=== PATIENT | male | born 1940 | race Hispanic/Latino ===

== ENCOUNTER 2018-06-27 05:53 | Day surgery (SDC) | payer MEDICARE, OTHER ==
[2018-06-27] MEDS ORDERED: DIPRIVAN 10 MG/ML IV ONE (06:50)
[2018-06-27] MEDS ORDERED: XYLOCAINE MPF 2% ONE (06:50)
[2018-06-27] MEDS ORDERED: SUBLIMAZE ONE (06:50)
[2018-06-27] MEDS ORDERED: ANCEF/STERILE WATER 2 GM/20 ML 2 GM/20 ML SYRINGE IV ONE (07:42)
[2018-06-27] MEDS ORDERED: LACTATED RINGERS 1,000 ML ONE (07:42)
[2018-06-27] MEDS ORDERED: ANCEF/STERILE WATER 2 GM/20 ML IV NR (08:00)
[2018-06-27] MEDS ORDERED: LACTATED RINGERS 1,000 ML IV SCH (08:00)
[2018-06-27 08:04] LABS: Partial Thromboplastin Time 24.5 Sec. (24.2-36.6)
[2018-06-27] MEDS ORDERED: NEO SYNEPHRINE/NS Syringe(OR USE) IV ONE (08:24)
[2018-06-27] MEDS ORDERED: ROBINUL ONE (08:27)
[2018-06-27] MEDS ORDERED: WATER FOR IRRIG STERILE IR ONE (08:45)
--- NOTE | 2018-06-27 08:50 | Post Operative Note ---
Date of procedure: 06/27/18 Pre-op diagnosis: + fish heme Post-op diagnosis: same Findings: ??inflam Procedure: cysto biopsies rpgs tur Anesthesia: GETA Surgeon: IVETT JENNINGS Estimated blood loss: minimal Pathology: list (bladder and bn) Specimen disposition: to lab Condition: stable Disposition: PACU
--- NOTE | 2018-06-27 08:51 | Discharge Summary ---
Short Stay Discharge Plan Activity: other (no straining ) Weight Bearing Status: Full Weight Bearing Diet: low fat, low cholesterol, low salt Special Instructions: other (inc fluids ) Durable Medical Equipment Needed Upon Discharge: other (teach maurer care ) Follow up with: ANUPAM COLLADO MD [Primary Care Provider] - 7 Days IVETT JENNINGS MD [Staff Physician] - 07/02/18
[2018-06-27] MEDS ORDERED: LASIX ONE (08:54)
[2018-06-27 11:05] VITALS: BP 137/74
--- NOTE | 2018-06-27 11:16 | Anesthesia Day of Surgery ---
Anesthesia Day of Surgery - Day of Surgery Patient Examined: Yes Patient H&P Reviewed: Yes Patient is NPO: Yes
--- NOTE | 2018-06-27 11:16 | Anesthesia Consultation ---
Anesthesia Consult and Med Hx Date of service: 06/27/18 - Airway Anesthetic Teeth Evaluation: Good ROM Head & Neck: Adequate Mental/Hyoid Distance: Adequate Mallampati Class: Class II Intubation Access Assessment: Probably Good - Pulmonary Exam CTA: Yes - Cardiac Exam Cardiac Exam: RRR - Pre-Operative Health Status ASA Pre-Surgery Classification: ASA2 Proposed Anesthetic Plan: General - Pulmonary Hx Smoking: Yes (STOPPED X 20 YRS) Hx Sleep Apnea: No (LANDON PRE SCREEN HIGH RISK) - Cardiovascular System Hx Hypertension: Yes Hx Heart Attack/AMI: No Hx Peripheral Vascular Disease: Yes (LEGS) - Central Nervous System Hx Psychiatric Problems: Yes (claustrophobia) - Gastrointestinal Hx Ulcer: Yes - Endocrine Hx Renal Disease: No Hx Liver Disease: No Hx Insulin Dependent Diabetes: No Hx Non-Insulin Dependent Diabetes: No Hx Hypothyroidism: Yes - Other Systems Hx Obesity: Yes - Additional Comments Anesthesia Medical History Comments: No hx anesthetic complications.
--- NOTE | 2018-06-27 11:28 | Operative Report ---
PREOPERATIVE DIAGNOSES: Positive cytology, irregularity, right bladder neck area. POSTOPERATIVE DIAGNOSES: Positive cytology, irregularity, right bladder neck area. PROCEDURE: Cystoscopy, retrograde biopsy, TUR biopsy, bladder neck and Tavares catheter. SURGEON: Nicola Aviles MD ANESTHESIA: General. FINDINGS: This is a gentleman with hematuria with positive FISH test. CT scan was unremarkable. He now presents for treatment. DESCRIPTION OF PROCEDURE: The patient was brought to the operating room and placed on the operating table. Following induction of anesthesia, placed in lithotomy position, prepped and draped in usual sterile fashion. Cystourethroscopy showed irregularity, right bladder neck area. Multiple bladder biopsies were done. Retrograde showed delicate collecting system and ureters. At this point, the biopsies were done, the area was cauterized. The resectoscope was inserted under direct vision and a biopsy of the bladder neck on the right side was done. The patient tolerated procedure well. No significant complications. The area was cauterized. A 22 Tavares was easily placed and brought to recovery room in stable condition. JOB# [id number] KAREEN/SHER
--- NOTE | 2018-06-27 13:29 | Post Anesthesia Evaluation ---
- Post Anesthesia Evaluation Patient Participated: Yes Airway Patent: Yes Stable Respiratory Function: Yes Nausea/Vomiting: No Temp > 96.8F: Yes Pain Manageable: Yes Adequeate Hydration: Yes Anesthesia Complications: No
--- NOTE | 2018-06-27 13:37 | Fluoroscopy Report ---
FLUOROSCOPY RETROGRADE UROGRAPHY: HISTORY: Microscopic hematuria. FINDINGS: Fluoroscopy was provided by radiology during retrograde urography by the urologist. 8 fluoroscopic images were captured. There is adequate filling of the ureters and intrarenal collecting systems with no filling defects or anatomic abnormalities identified. Please correlate with the procedural report if needed. IMPRESSION: Retrograde pyelograms within normal limits.
== END 2018-06-27 10:40 | disposition home or self-care (01) ==
LOC: OR 05:53
PROVIDERS: ATTEND Urology
DX: C67.9 Malignant neoplasm of bladder, unspecified (principal); R31.29 Other microscopic hematuria; I12.9 Hypertensive chronic kidney disease with stage 1 through stage 4 chronic kidney disease, or unspecified chronic kidney disease; E11.22 Type 2 diabetes mellitus with diabetic chronic kidney disease; N18.9 Chronic kidney disease, unspecified; K21.9 Gastro-esophageal reflux disease without esophagitis; M19.90 Unspecified osteoarthritis, unspecified site; I73.9 Peripheral vascular disease, unspecified; E78.00 Pure hypercholesterolemia, unspecified; E03.9 Hypothyroidism, unspecified; F32.9 Major depressive disorder, single episode, unspecified; F41.9 Anxiety disorder, unspecified; E66.9 Obesity, unspecified; Z68.32 Body mass index [BMI] 32.0-32.9, adult; Z79.899 Other long term (current) drug therapy; Z79.82 Long term (current) use of aspirin; Z86.718 Personal history of other venous thrombosis and embolism; Z87.440 Personal history of urinary (tract) infections; Z98.890 Other specified postprocedural states; Z91.018 Allergy to other foods; Z87.891 Personal history of nicotine dependence; Z98.42 Cataract extraction status, left eye; Z98.41 Cataract extraction status, right eye
CPT/HCPCS: 36415; 52500; 74420; 82962; 84132; 85610; 85730; 88112; 88305; A4217; J0690; J1940; J2370; J2704; J3010; J7120; Q9967; 88342; C1758

== ENCOUNTER 2018-07-13 10:40 | Inpatient (IN) | payer MEDICARE, OTHER ==
--- NOTE | 2018-07-13 11:00 | Emergency Department Report ---
Chief Complaint: Extremity Problem,Nontraumatic Stated Complaint: BLOOD CLOT (R) LEG Time Seen by Provider: 07/13/18 10:59 - HPI History of Present Illness: INC RLE PAIN AND SWELLING WARM TO TOUCH KNOWN DVT DX IN MAY OFF ELOQUIS LAST WEEK FOR MINOR SURGERY- BUT BACK ON IT NOW NOW WORSENING NO CP NO SOB US ORDERED TO RO OCCLUSIVE DZ MSE screening note: Focused history and physical exam performed. Due to findings the following was ordered: ED Disposition for MSE Condition: Stable
--- NOTE | 2018-07-13 11:10 | Emergency Department Report ---
ED Extremity Problem HPI - General Chief complaint: Extremity Problem,Nontraumatic Stated complaint: BLOOD CLOT (R) LEG Time Seen by Provider: 07/13/18 10:59 Source: patient Mode of arrival: Ambulatory Limitations: Physical Limitation - History of Present Illness Initial comments: Patient is a 78-year-old male who is presenting with right lower extremity swelling. Swelling has been present for the past 3-4 days. Patient is on Lindy Frederick for DVT but was taken off approximately a week before his bladder surgery which occurred on 06/27/2018. Patient restart his Lindy Frederick on 06/29/2018. Patient states he's been taking Eloquis was since the surgery. Patient's states that his leg has become very swollen and warm to touch especially at night. Patient denies any chest pain shortness of breath fevers chills at this time. - Related Data Home Medications Medication Instructions Recorded Confirmed Last Taken Allopurinol [Zyloprim] 100 mg PO BID 08/12/15 06/27/18 06/25/18 17:00 Aspirin EC [Aspirin Enteric Coated 81 mg PO DAILY 08/12/15 06/27/18 06/21/18 09:00 TAB] Atenolol [Tenormin] 25 mg PO DAILY 08/12/15 06/27/18 06/27/18 05:00 Famotidine [Pepcid] 40 mg PO DAILY 08/12/15 06/27/18 06/24/18 09:00 Furosemide [Lasix TAB] 40 mg PO PRN PRN 08/12/15 06/27/18 06/13/18 09:00 Levothyroxine [Synthroid] 137 mcg PO DAILY 08/12/15 06/27/18 06/27/18 05:00 Terazosin [Hytrin] 5 mg PO QHS 08/12/15 06/27/18 06/26/18 20:00 Apixaban [Eliquis] 5 mg PO BID 06/21/18 06/27/18 06/21/18 09:00 Terazosin [Hytrin] 10 mg PO QAM 06/21/18 06/27/18 06/27/18 05:00 Allergies Allergy/AdvReac Type Severity Reaction Status Date / Time kiwi Allergy Mild TONGUE Verified 08/12/15 06:18 SWELLING, EYES WATERY ED Review of Systems ROS: Stated complaint: BLOOD CLOT (R) LEG Other details as noted in HPI Comment: All other systems reviewed and negative ED Past Medical Hx - Past Medical History Hx Hypertension: Yes Hx Heart Attack/AMI: No Hx Diabetes: Yes (NO MEDS) Hx Deep Vein Thrombosis: Yes (rt leg) Hx GERD: Yes Hx Liver Disease: No Hx Renal Disease: No Hx Arthritis: Yes Hx Kidney Stones: Yes Hx HIV: No - Surgical History Additional Surgical History: thyroid removed - Social History Smoking Status: Former Smoker - Medications Home Medications: Home Medications Medication Instructions Recorded Confirmed Last Taken Type Allopurinol [Zyloprim] 100 mg PO BID 08/12/15 06/27/18 06/25/18 17:00 History Aspirin EC [Aspirin Enteric Coated 81 mg PO DAILY 08/12/15 06/27/18 06/21/18 09:00 History TAB] Atenolol [Tenormin] 25 mg PO DAILY 08/12/15 06/27/18 06/27/18 05:00 History Famotidine [Pepcid] 40 mg PO DAILY 08/12/15 06/27/18 06/24/18 09:00 History Furosemide [Lasix TAB] 40 mg PO PRN PRN 08/12/15 06/27/18 06/13/18 09:00 History Levothyroxine [Synthroid] 137 mcg PO DAILY 08/12/15 06/27/18 06/27/18 05:00 History Terazosin [Hytrin] 5 mg PO QHS 08/12/15 06/27/18 06/26/18 20:00 History Apixaban [Eliquis] 5 mg PO BID 06/21/18 06/27/18 06/21/18 09:00 History Terazosin [Hytrin] 10 mg PO QAM 06/21/18 06/27/18 06/27/18 05:00 History ED Physical Exam - General Limitations: Physical Limitation General appearance: alert, in no apparent distress - Head Head exam: Present: atraumatic, normocephalic - Eye Eye exam: Present: normal appearance - ENT ENT exam: Present: mucous membranes moist - Neck Neck exam: Present: normal inspection - Respiratory Respiratory exam: Present: normal lung sounds bilaterally. Absent: respiratory distress, wheezes, rales, rhonchi - Cardiovascular Cardiovascular Exam: Present: regular rate, normal rhythm. Absent: systolic murmur, diastolic murmur, rubs, gallop - GI/Abdominal GI/Abdominal exam: Present: soft, normal bowel sounds. Absent: distended, tenderness, guarding, rebound - Rectal Rectal exam: Present: deferred - Extremities Exam Extremities exam: Present: normal inspection, other (patient with 2+ edema to the right lower extremity from the knee distally. Edema is pitting. There is very mild erythematous skin. Mild warmth.) - Back Exam Back exam: Present: normal inspection - Neurological Exam Neurological exam: Present: alert, oriented X3 - Psychiatric Psychiatric exam: Present: normal affect, normal mood - Skin Skin exam: Present: warm, dry, intact, normal color. Absent: rash ED Course - Reevaluation(s) Reevaluation #1: 07/13/18 11:10 Patient be sent for ultrasound of his right lower extremity rule out acute DVT ED Medical Decision Making - Lab Data Result diagrams: 07/13/18 11:10 07/13/18 11:10 Lab Results 07/13/18 07/13/18 07/13/18 Range/Units 11:10 11:10 11:10 WBC 6.7 (4.5-11.0) K/mm3 RBC 4.52 (3.65-5.03) M/mm3 Hgb 13.3 (11.8-15.2) gm/dl Hct 39.7 (35.5-45.6) % MCV 88 (84-94) fl MCH 29 (28-32) pg MCHC 34 (32-34) % RDW 13.0 L (13.2-15.2) % Plt Count 190 (140-440) K/mm3 Lymph % (Auto) 15.3 (13.4-35.0) % [place] % (Auto) 6.1 (0.0-7.3) % Eos % (Auto) 1.4 (0.0-4.3) % Baso % (Auto) 0.6 (0.0-1.8) % Lymph # 1.0 L (1.2-5.4) K/mm3 [place] # 0.4 (0.0-0.8) K/mm3 Eos # 0.1 (0.0-0.4) K/mm3 Baso # 0.0 (0.0-0.1) K/mm3 Seg Neutrophils % 76.6 H (40.0-70.0) % Seg Neutrophils # 5.2 (1.8-7.7) K/mm3 PT 14.3 (12.2-14.9) Sec. INR 1.05 (0.87-1.13) APTT 27.5 (24.2-36.6) Sec. Sodium 141 (137-145) mmol/L Potassium 4.4 (3.6-5.0) mmol/L Chloride 101.9 (98-107) mmol/L Carbon Dioxide 25 (22-30) mmol/L Anion Gap 19 mmol/L BUN 23 H (9-20) mg/dL Creatinine 1.2 (0.8-1.5) mg/dL Estimated GFR 59 ml/min BUN/Creatinine Ratio 19 % Glucose 151 H (75-100) mg/dL Calcium 8.3 L (8.4-10.2) mg/dL - Radiology Data Positive for extensive right lower extremity DVT within the right common, superficial femoral, popliteal and posterior tibial veins. - Medical Decision Making Patient to be admitted to the hospitalist service under Dr. Pollack. Patient has extensive DVT in the right lower extremity. Because the patient's age and the fact he is already on blood thinners because the patient a high risk for PE. Critical Care Time: Yes (30) Critical care attestation.: If time is entered above; I have spent that time in minutes in the direct care of this critically ill patient, excluding procedure time. ED Disposition Clinical Impression: DVT (deep venous thrombosis) Qualifiers: DVT location: lower extremity Affected thrombotic vein of extremity: femoral Chronicity: acute Laterality: right Qualified Code(s): I82.411 - Acute embolism and thrombosis of right femoral vein Disposition: OP ADMIT IP TO THIS HOSP Is pt being admited?: Yes Does the pt Need Aspirin: No Condition: Serious Time of Disposition: 13:02
[2018-07-13 11:19] LABS: Basophils % (Auto) 0.6 % (0.0-1.8); Eosinophils # (Auto) 0.1 K/mm3 (0.0-0.4); Eosinophils % (Auto) 1.4 % (0.0-4.3); Hematocrit 39.7 % (35.5-45.6); Hemoglobin 13.3 gm/dl (11.8-15.2); Lymphocytes % (Auto) 15.3 % (13.4-35.0); Mean Corpuscular HGB Conc 34 % (32-34); Mean Corpuscular Volume 88 fl (84-94); Monocytes # (Auto) 0.4 K/mm3 (0.0-0.8); Monocytes % (Auto) 6.1 % (0.0-7.3); Platelet Count 190 K/mm3 (140-440); Red Blood Count 4.52 M/mm3 (3.65-5.03)
[2018-07-13 11:32] LABS: INR 1.05 (0.87-1.13)
[2018-07-13 11:33] LABS: Partial Thromboplastin Time 27.5 Sec. (24.2-36.6)
[2018-07-13 11:39] LABS: Calcium 8.3 mg/dL (8.4-10.2)
--- NOTE | 2018-07-13 12:40 | Vascular Lab Report ---
FINAL REPORT EXAM: VL VENOUS DUPLEX LE RT HISTORY: PAIN TECHNIQUE: Grayscale and color and spectral Doppler ultrasound imaging of the right lower extremity venous system was performed. PRIORS: None. FINDINGS: The study is positive for near occlusive DVT within the right common, superficial femoral, popliteal and posterior tibial veins. Incidentally the left common femoral vein appears patent. IMPRESSION: Positive for extensive right lower extremity DVT. Findings were discussed with Dr. Esqueda at 9:33 a.m. PST on 07/13/2018.
--- NOTE | 2018-07-13 13:05 | History and Physical Report ---
History of Present Illness Chief complaint: My leg hurts History of present illness: 78 YO Male with HTN,Hypothyroid, Gout, GERD, DVT RLE, DM, OA presents to ED for evaluation. Pt states that he has experienced pain and swelling in his right lower leg over the past 4 days with worsening symptoms over the same time frame. Pt states that he has been compliant with therapeutic anticoagulation(Eliquis) except when taken off medication prior to urologic surgery. Pt is unable to bear weight on his RLE due to pain. Pt seen and evaluated in ED and found to have expanding RLE DVT while on therapeutic anticoagulation. Pt initiated on Heparin Drip and admitted to [facility]. Vascular Surgery service consulted in ED. Pt denies fever, chills, CP, Palpitations, NVD, Trauma, or recent ill contacts. Past History Past Medical History: arthritis, diabetes, DVT, GERD, hypertension, hypoth yroidism Past Surgical History: Other (Bladder surgery) Social history: , lives with family Family history: diabetes, hypertension Medications and Allergies Allergies Allergy/AdvReac Type Severity Reaction Status Date / Time kiwi Allergy Mild TONGUE Verified 08/12/15 06:18 SWELLING, EYES WATERY Home Medications Medication Instructions Recorded Confirmed Last Taken Type Allopurinol [Zyloprim] 100 mg PO BID 08/12/15 06/27/18 06/25/18 17:00 History Aspirin EC [Aspirin Enteric Coated 81 mg PO DAILY 08/12/15 06/27/18 06/21/18 09:00 History TAB] Atenolol [Tenormin] 25 mg PO DAILY 08/12/15 06/27/18 06/27/18 05:00 History Famotidine [Pepcid] 40 mg PO DAILY 08/12/15 06/27/18 06/24/18 09:00 History Furosemide [Lasix TAB] 40 mg PO PRN PRN 08/12/15 06/27/18 06/13/18 09:00 History Levothyroxine [Synthroid] 137 mcg PO DAILY 08/12/15 06/27/18 06/27/18 05:00 History Terazosin [Hytrin] 5 mg PO QHS 08/12/15 06/27/18 06/26/18 20:00 History Apixaban [Eliquis] 5 mg PO BID 06/21/18 06/27/18 06/21/18 09:00 History Terazosin [Hytrin] 10 mg PO QAM 06/21/18 06/27/18 06/27/18 05:00 History Review of Systems Constitutional: no weight loss, no weight gain, no fever, no chills Ears, nose, mouth and throat: no ear pain, no ear discharge, no decreased hearing, no nose pain, no nasal congestion Cardiovascular: no orthopnea, no palpitations, no rapid/irregular heart beat, no edema, no syncope Respiratory: no cough, no cough with sputum, no excessive sputum, no hemoptysis, no shortness of breath Gastrointestinal: no abdominal pain, no nausea, no vomiting, no diarrhea, no constipation Genitourinary Male: no hematuria, no flank pain, no discharge, no urinary frequency, no urinary hesitancy Rectal: no pain, no incontinence, no bleeding Musculoskeletal: no neck stiffness, no neck pain, no shooting arm pain, no arm numbness/tingling, no low back pain Integumentary: redness, no rash, no pruritis, no sores, no wounds Neurological: no transient paralysis, no paralysis, no weakness, no parathesias, no numbness, no tingling Psychiatric: no memory loss, no change in sleep habits, no sleep disturbances, no insomnia, no hypersomnia, no change in appetite Endocrine: no cold intolerance, no heat intolerance, no polyphagia, no excessive thirst, no polydipsia, no polyuria Hematologic/Lymphatic: no easy bruising, no easy bleeding Allergic/Immunologic: no urticaria, no allergic rhinitis, no wheezing Exam - Constitutional General appearance: Present: no acute distress, well-nourished, obese - EENT Eyes: Present: PERRL ENT: hearing intact, clear oral mucosa - Neck Neck: Present: supple, normal ROM - Respiratory Respiratory effort: normal Respiratory: bilateral: CTA - Cardiovascular Heart Sounds: Present: S1 & S2. Absent: rub, click - Extremities Extremities: pulses symmetrical, No edema Extremity abnormal: edema, erythema Peripheral Pulses: within normal limits - Abdominal General gastrointestinal: Present: soft, non-tender, non-distended, normal bowel sounds Male genitourinary: Present: normal - Integumentary Integumentary: Present: clear, warm, dry - Musculoskeletal Musculoskeletal: gait normal, strength equal bilaterally - Psychiatric Psychiatric: appropriate mood/affect, intact judgment & insight - Neurologic Neurologic: CNII-XII intact, moves all extremities Results - Labs CBC & Chem 7: 07/13/18 11:10 07/13/18 11:10 Labs: Abnormal lab results 07/13/18 07/13/18 Range/Units 11:10 11:10 RDW 13.0 L (13.2-15.2) % Lymph # 1.0 L (1.2-5.4) K/mm3 Seg Neutrophils % 76.6 H (40.0-70.0) % BUN 23 H (9-20) mg/dL Glucose 151 H (75-100) mg/dL Calcium 8.3 L (8.4-10.2) mg/dL Assessment and Plan - Patient Problems (1) DVT (deep venous thrombosis) Current Visit: Yes Status: Acute Qualifiers: DVT location: lower extremity Affected thrombotic vein of extremity: popliteal Chronicity: acute Laterality: right Qualified Code(s): I82.431 - Acute embolism and thrombosis of right popliteal vein Plan to address problem: Initiate Heparin drip protocol, Vascular surgery consulted for evaluation and possible placement of Mazon Filter, supportive care, pain control, (2) HTN (hypertension) Current Visit: Yes Status: Acute Qualifiers: Hypertension type: essential hypertension Qualified Code(s): I10 - Esse ntial (primary) hypertension Plan to address problem: monitor bp q shift, continue medical management (3) Diabetes Current Visit: Yes Status: Acute Plan to address problem: ADA diet, insulin, accu check (4) GERD (gastroesophageal reflux disease) Current Visit: Yes Status: Acute Qualifiers: Esophagitis presence: with esophagitis Qualified Code(s): K21.0 - Gastro- esophageal reflux disease with esophagitis Plan to address problem: PPI therapy, (5) DVT prophylaxis Current Visit: Yes Status: Acute Plan to address problem: Heparin drip protocol
[2018-07-13] MEDS ORDERED: PROVENTIL IH PRN (13:06)
[2018-07-13] MEDS ORDERED: ZOFRAN IV PRN (13:06)
[2018-07-13] MEDS ORDERED: SODIUM CHLORIDE FLUSH SYRINGE 10 ML IV PRN (13:06)
[2018-07-13] MEDS ORDERED: TYLENOL PO PRN (13:06)
[2018-07-13] MEDS ORDERED: PERCOCET 5/325 PO PRN (13:06)
[2018-07-13] MEDS ORDERED: HEPARIN 10,000 UNITS/10 ML IV ONE (13:13)
[2018-07-13] MEDS ORDERED: HEPARIN/ 0.45% NACL-25,000 UNIT/500 ML 25,000 UNIT/500 ML BAG IV SCH (14:00)
--- NOTE | 2018-07-13 15:56 | Consultation ---
History of Present Illness - Reason for Consult Consult date: 07/13/18 right lower extremity DVT Requesting physician: DIANE HAM - History of Present Illness 78-year-old gentleman came in was right lower extremity edema that started developing when he was off his usual anticoagulation with Eliquis for urological procedure. She was instructed to stop his anticoagulation for 7 days before procedure and was started that 2 days after procedure. He was more than 1 week off his anticoagulation. Given that he developed a right inguinal swelling that was extending to his right entire leg swelling. Patient has a history of previous DVTs as far as he remembers in his right popliteal area and tibial veins. He had a venogram performed by Dr. 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 The plan was to continue conservative management, anticoagulation, compression stockings and monitor. Vascular surgery was consulted for further recommendations. Patient denies difficulty walking, leg pain. He had resumed his adequate for 14 days now and last dose was taken this morning Past History Past Medical History: arthritis, diabetes, DVT, GERD, hypertension, hypothyroidism Past Surgical History: Other (Bladder surgery) Social history: , lives with family Family history: diabetes, hypertension Medications and Allergies Allergies Allergy/AdvReac Type Severity Reaction Status Date / Time kiwi Allergy Mild TONGUE Verified 08/12/15 06:18 SWELLING, EYES WATERY Home Medications Medication Instructions Recorded Confirmed Last Taken Type Atenolol [Tenormin] 25 mg PO DAILY 08/12/15 07/13/18 06/27/18 05:00 History Famotidine [Pepcid] 40 mg PO DAILY 08/12/15 07/13/18 06/24/18 09:00 History Furosemide [Lasix TAB] 40 mg PO PRN PRN 08/12/15 07/13/18 06/13/18 09:00 History Levothyroxine [Synthroid] 137 mcg PO DAILY 08/12/15 07/13/18 06/27/18 05:00 History Terazosin [Hytrin] 5 mg PO QHS 08/12/15 07/13/18 06/26/18 20:00 History Apixaban [Eliquis] 5 mg PO BID 06/21/18 07/13/18 06/21/18 09:00 History Terazosin [Hytrin] 10 mg PO QAM 06/21/18 07/13/18 06/27/18 05:00 History Active Meds: Active Medications Acetaminophen (Tylenol) 650 mg PO Q4H PRN PRN Reason: Pain MILD(1-3)/Fever >100.5/[place] Albuterol (Proventil) 2.5 mg IH Q4HRT PRN PRN Reason: Shortness Of Breath Allopurinol (Zyloprim) 100 mg PO BID ÁNGEL Apixaban (Eliquis) 5 mg PO Q12HR ÁNGEL; Protocol Aspirin (Halfprin Ec) 81 mg PO DAILY ÁNGEL Atenolol (Tenormin) 25 mg PO DAILY ÁNGEL Famotidine (Pepcid) 20 mg PO BID ÁNGEL Levothyroxine Sodium (Synthroid) 137 mcg PO DAILY ÁNGEL Ondansetron HCl (Zofran) 4 mg IV Q8H PRN PRN Reason: Nausea And Vomiting Oxycodone/Acetaminophen (Percocet 5/325) 1 tab PO Q6H PRN PRN Reason: Pain, Moderate (4-6) Prazosin HCl (Minipress) 1 mg PO QAM ÁNGEL Prazosin HCl (Minipress) 5 mg PO QHS ÁNGEL Sodium Chloride (Sodium Chloride Flush Syringe 10 Ml) 10 ml IV BID ÁNGEL Sodium Chloride (Sodium Chloride Flush Syringe 10 Ml) 10 ml IV PRN PRN PRN Reason: LINE FLUSH Review of Systems All systems: negative (mentioned in HPI) Exam - Physical Exam Narrative exam: Right lower extremity edema. Bilateral palpable DP and PT pulses. No tenderne ss - Constitutional Vitals: Temp Pulse Resp BP Pulse Ox 97.7 F 47 L 18 144/68 94 07/13/18 14:24 07/13/18 14:24 07/13/18 14:24 07/13/18 14:24 07/13/18 14:24 Results - Labs CBC & Chem 7: 07/13/18 11:10 07/13/18 11:10 Labs: Abnormal lab results 07/13/18 07/13/18 Range/Units 11:10 11:10 RDW 13.0 L (13.2-15.2) % Lymph # 1.0 L (1.2-5.4) K/mm3 Seg Neutrophils % 76.6 H (40.0-70.0) % BUN 23 H (9-20) mg/dL Glucose 151 H (75-100) mg/dL Calcium 8.3 L (8.4-10.2) mg/dL - Imaging and Cardiology Venous US: report reviewed Assessment and Plan Right lower extremity DVT which does not appear acute Continue oral anticoagulation No indication for IVC filter placement at this time Right leg elevation, status, also about ambulating Patient will follow up with his vascular surgeon in the office Dr. Garsia
[2018-07-13] MEDS: ELIQUIS PO SCH (17:28)
[2018-07-13] MEDS: ZYLOPRIM PO SCH (21:46)
[2018-07-13] MEDS: PEPCID PO SCH (21:46)
[2018-07-13] MEDS: MINIPRESS PO SCH (21:46)
[2018-07-13] MEDS: SODIUM CHLORIDE FLUSH SYRINGE 10 ML IV SCH (21:47)
[2018-07-13] MEDS ORDERED: ELIQUIS PO SCH (22:00)
[2018-07-13] MEDS ORDERED: NON-FORMULARY (Terazosin 5 MG) PO SCH (22:00)
[2018-07-14 05:45] LABS: BUN/Creatinine Ratio 17; Blood Urea Nitrogen 19 mg/dL (9-20); Calcium 8.3 mg/dL (8.4-10.2); Hemolysis Index 7
[2018-07-14] MEDS: SYNTHROID PO SCH ×2 (08:31)
[2018-07-14] MEDS: ELIQUIS PO SCH ×2 (09:34→21:51)
[2018-07-14] MEDS: ZYLOPRIM PO SCH ×2 (09:35→21:51)
[2018-07-14] MEDS: PEPCID PO SCH ×2 (09:35→21:51)
[2018-07-14] MEDS: HALFPRIN EC PO SCH (09:35)
[2018-07-14] MEDS: SODIUM CHLORIDE FLUSH SYRINGE 10 ML IV SCH ×2 (09:36→21:51)
[2018-07-14] MEDS: MINIPRESS PO SCH ×2 (09:37→21:52)
[2018-07-14] MEDS ORDERED: NON-FORMULARY (Terazosin 10 MG) PO SCH (10:00)
[2018-07-14] MEDS ORDERED: TENORMIN PO SCH (10:00)
--- NOTE | 2018-07-14 14:14 | Progress Note ---
Assessment and Plan Assessment and plan: 78 YO Male with HTN,Hypothyroid, Gout, GERD, DVT RLE, DM, OA presents to ED for evaluation. Pt states that he has experienced pain and swelling in his right lower leg over the past 4 days with worsening symptoms over the same time frame. Pt states that he has been compliant with therapeutic anticoagulation(Eliquis) except when taken off medication prior to urologic surgery. Pt is unable to bear weight on his RLE due to pain. Pt seen and evaluated in ED and found to have expanding RLE DVT while on therapeutic anticoagulation. Pt initiated on Heparin Drip and admitted to [facility]. Vascular Surgery service consulted in ED. Pt denies fever, chills, CP, Palpitations, NVD, Trauma, or recent ill contacts. Further evaluation by vascular surgeon noted that the patient had a venogram performed by Dr. 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 The plan was to continue conservative management, anticoagulation, compression stockings and monitor. Vascular surgery was consulted for further recommendations. Patient denies difficulty walking, leg pain. (1) DVT (deep venous thrombosis) Current Visit: Yes Status: Acute Qualifiers: DVT location: lower extremity Affected thrombotic vein of extremity: popliteal Chronicity: acute Laterality: right Qualified Code(s): I82.431 - Acute embolism and thrombosis of right popliteal vein Plan to address problem: This document the laparoscopy. I agree with restarting OF Eliquis Elevate Leg Anticipate discharge in am (2) HTN (hypertension) Current Visit: Yes Status: Acute Qualifiers: Hypertension type: essential hypertension Qualified Code(s): I10 - Essential (primary) hypertension Plan to address problem: monitor bp q shift, continue medical management (3) Diabetes Current Visit: Yes Status: Acute Plan to address problem: ADA diet, insulin, accu check (4) GERD (gastroesophageal reflux disease) Current Visit: Yes Status: Acute Qualifiers: Esophagitis presence: with esophagitis Qualified Code(s): K21.0 - Gastro- esophageal reflux disease with esophagitis Plan to address problem: PPI therapy, (5) DVT prophylaxis Current Visit: Yes Status: Acute Plan to address problem: Heparin drip protocol History Interval history: Patient is seen today for: Right lower extremity swelling and DVT Seen and examined at bedside; 24hour events reviewed; nursing staff ; no adverse overnight events reported to me; Denies any chest pain, nausea, vomiting, diarrhea No fever noted blood pressure controlled Hospitalist Physical - Physical exam Narrative exam: VITAL SIGNS: Reviewed. GENERAL: The patient appeared well nourished and normally developed. Vital signs as documented. HEAD: No signs of head trauma. EYES: Pupils are equal. Extraocular motions intact. EARS: Hearing grossly intact. MOUTH: Oropharynx is normal. NECK: No adenopathy, no JVD. CHEST: Chest with clear breath sounds bilaterally. No wheezes, rales, or rhonchi. CARDIAC: Regular rate and rhythm. S1 and S2, without murmurs, gallops, or rubs. VASCULAR: Trace edema right lower extremity.. Peripheral pulses normal and equal in all extremities. ABDOMEN: Soft, without detectable tenderness. No sign of distention. No rebound or guarding, and no masses palpated. Bowel Sounds normal. MUSCULOSKELETAL: Good range of motion of all major joints. Extremities without clubbing, cyanosis trace pitting edema right lower extremity. NEUROLOGIC EXAM: Alert and oriented x 3. No focal sensory or strength defi cits. Speech normal. Follows commands. PSYCHIATRIC: Mood normal. SKIN: No rash or lesions. - Constitutional Vitals: Temp Pulse Resp BP Pulse Ox 97.7 F 65 18 159/75 93 07/14/18 07:34 07/14/18 10:00 07/14/18 10:00 07/14/18 09:37 07/14/18 10:00 General appearance: Present: no acute distress, well-nourished, obese Results - Labs CBC & Chem 7: 07/13/18 11:10 07/14/18 04:50 Labs: Laboratory Last Values WBC 6.7 K/mm3 (4.5-11.0) 07/13/18 11:10 RBC 4.52 M/mm3 (3.65-5.03) 07/13/18 11:10 Hgb 13.3 gm/dl (11.8-15.2) 07/13/18 11:10 Hct 39.7 % (35.5-45.6) 07/13/18 11:10 MCV 88 fl (84-94) 07/13/18 11:10 MCH 29 pg (28-32) 07/13/18 11:10 MCHC 34 % (32-34) 07/13/18 11:10 RDW 13.0 % (13.2-15.2) L 07/13/18 11:10 Plt Count 190 K/mm3 (140-440) 07/13/18 11:10 Lymph % (Auto) 15.3 % (13.4-35.0) 07/13/18 11:10 Rogers % (Auto) 6.1 % (0.0-7.3) 07/13/18 11:10 Eos % (Auto) 1.4 % (0.0-4.3) 07/13/18 11:10 Baso % (Auto) 0.6 % (0.0-1.8) 07/13/18 11:10 Lymph # 1.0 K/mm3 (1.2-5.4) L 07/13/18 11:10 Rogers # 0.4 K/mm3 (0.0-0.8) 07/13/18 11:10 Eos # 0.1 K/mm3 (0.0-0.4) 07/13/18 11:10 Baso # 0.0 K/mm3 (0.0-0.1) 07/13/18 11:10 Seg Neutrophils % 76.6 % (40.0-70.0) H 07/13/18 11:10 Seg Neutrophils # 5.2 K/mm3 (1.8-7.7) 07/13/18 11:10 PT 14.3 Sec. (12.2-14.9) 07/13/18 11:10 INR 1.05 (0.87-1.13) 07/13/18 11:10 APTT 27.5 Sec. (24.2-36.6) 07/13/18 11:10 Sodium 139 mmol/L (137-145) 07/14/18 04:50 Potassium 4.2 mmol/L (3.6-5.0) 07/14/18 04:50 Chloride 102.3 mmol/L (98-107) 07/14/18 04:50 Carbon Dioxide 30 mmol/L (22-30) 07/14/18 04:50 Anion Gap 11 mmol/L 07/14/18 04:50 BUN 19 mg/dL (9-20) 07/14/18 04:50 Creatinine 1.1 mg/dL (0.8-1.5) 07/14/18 04:50 Estimated GFR > 60 ml/min 07/14/18 04:50 BUN/Creatinine Ratio 17 % 07/14/18 04:50 Glucose 138 mg/dL (75-100) H 07/14/18 04:50 Calcium 8.3 mg/dL (8.4-10.2) L 07/14/18 04:50
[2018-07-15 06:11] LABS: Hematocrit 37.9 % (35.5-45.6); Hemoglobin 12.7 gm/dl (11.8-15.2)
[2018-07-15] MEDS: SYNTHROID PO SCH ×2 (06:24)
[2018-07-15] MEDS ORDERED: APRESOLINE IV PRN (07:36)
[2018-07-15] MEDS ORDERED: VASOTEC IV PRN ×2 (08:57→09:00)
--- NOTE | 2018-07-15 09:00 | Discharge Summary ---
Providers - Providers Date of Admission: 07/13/18 13:06 Attending physician: ANTWON TALLEY MD 07/13/18 13:18 Consult to Physician [CONS] Routine Comment: called office/nora Consulting Provider: CARLOS ADAMSON Physician Instructions: Reason For Exam: Expanding RLE DVT Primary care physician: ANUPAM COLLADO Hospitalization Reason for admission: DVT Condition: Stable Hospital course: 78 YO Male with HTN,Hypothyroid, Gout, GERD, DVT RLE, DM, OA presents to ED for evaluation. Pt states that he has experienced pain and swelling in his right lower leg over the past 4 days with worsening symptoms over the same time frame. Pt states that he has been compliant with therapeutic anticoagulation(Eliquis) except when taken off medication prior to urologic surgery. Pt is unable to bear weight on his RLE due to pain. Pt seen and evaluated in ED and found to have expanding RLE DVT while on therapeutic anticoagulation. Pt initiated on Heparin Drip and admitted to [facility]. Vascular Surgery service consulted in ED. Pt denies fever, chills, CP, Palpitations, NVD, Trauma, or recent ill contacts. Further evaluation by vascular surgeon noted that the patient had a venogram performed by Dr. 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 The plan was to continue conservative management, anticoagulation, compression stockings and monitor. Vascular surgery was consulted for further recommendations. Patient denies difficulty walking, leg pain. (1) DVT (deep venous thrombosis) Current Visit: Yes Status: Acute Qualifiers: DVT location: lower extremity Affected thrombotic vein of extremity: popliteal Chronicity: acute Laterality: right Qualified Code(s): I82.431 - Acute embolism and thrombosis of right popliteal vein Plan to address problem: Patient was placed on Eliquis on discharge. Also recommended as above to follow with Ady (2) HTN (hypertension) Current Visit: Yes Status: Acute Qualifiers: Hypertension type: essential hypertension Qualified Code(s): I10 - Essential (primary) hypertension Plan to address problem: monitor bp q shift, continue medical management (3) Diabetes Current Visit: Yes Status: Acute Plan to address problem: ADA diet, insulin, accu check (4) GERD (gastroesophageal reflux disease) Current Visit: Yes Status: Acute Qualifiers: Esophagitis presence: with esophagitis Qualified Code(s): K21.0 - Gastro- esophageal reflux disease with esophagitis Plan to address problem: PPI therapy, Disposition: DC-01 TO HOME OR SELFCARE Time spent for discharge: 35 mins Core Measure Documentation - Palliative Care Palliative Care/ Comfort Measures: Not Applicable - Core Measures Any of the following diagnoses?: none Exam - Physical Exam Narrative exam: VITAL SIGNS: Reviewed. GENERAL: The patient appeared well nourished and normally developed. Vital signs as documented. HEAD: No signs of head trauma. EYES: Pupils are equal. Extraocular motions intact. EARS: Hearing grossly intact. MOUTH: Oropharynx is normal. NECK: No adenopathy, no JVD. CHEST: Chest with clear breath sounds bilaterally. No wheezes, rales, or rhonchi. CARDIAC: Regular rate and rhythm. S1 and S2, without murmurs, gallops, or rubs. VASCULAR: Trace edema right lower extremity.. Peripheral pulses normal and equal in all extremities. ABDOMEN: Soft, without detectable tenderness. No sign of distention. No rebound or guarding, and no masses palpated. Bowel Sounds normal. MUSCULOSKELETAL: Good range of motion of all major joints. Extremities without clubbing, cyanosis trace pitting edema right lower extremity. NEUROLOGIC EXAM: Alert and oriented x 3. No focal sensory or strength deficits. Speech normal. Follows commands. PSYCHIATRIC: Mood normal. SKIN: No rash or lesions. - Constitutional Vitals: Temp Pulse Resp BP Pulse Ox 97.4 F L 54 L 18 164/78 93 07/15/18 07:55 07/15/18 07:55 07/15/18 07:55 07/15/18 07:55 07/15/18 07:55 Plan Activity: advance as tolerated, fall precautions Diet: low fat Special Instructions: record daily BP diary Additional Instructions: Dr. Garsia. Follow with Primary vascular doctor in 1 week Follow up with: ANUPAM COLLADO MD [Primary Care Provider] - 3-5 Days Prescriptions: Lisinopril/Hydrochlorothiazide [Zestoretic 20-12.5 mg] 1 tab PO QDAY #30 tab
[2018-07-15] MEDS: ELIQUIS PO SCH (10:29)
[2018-07-15] MEDS: PEPCID PO SCH (10:30)
[2018-07-15] MEDS: SODIUM CHLORIDE FLUSH SYRINGE 10 ML IV SCH (10:30)
[2018-07-15] MEDS: ZYLOPRIM PO SCH (10:30)
[2018-07-15] MEDS: HALFPRIN EC PO SCH (10:30)
[2018-07-15 10:35] VITALS: BP 151/75
[2018-07-15] MEDS: MINIPRESS PO SCH (10:35)
[2018-07-15] MEDS ORDERED: ZESTRIL PO SCH (11:00)
[2018-07-15] MEDS ORDERED: HCTZ PO SCH (11:00)
== END 2018-07-15 13:10 | disposition home or self-care (01) | DRG 301 ==
LOC: ED 10:40 → 2B-ACE 13:06
PROVIDERS: ADMIT Internal Medicine; ATTEND Internal Medicine
DX: I82.431 Acute embolism and thrombosis of right popliteal vein (principal); I10 Essential (primary) hypertension; E11.9 Type 2 diabetes mellitus without complications; K21.0 Gastro-esophageal reflux disease with esophagitis; E03.9 Hypothyroidism, unspecified; M10.9 Gout, unspecified; M19.90 Unspecified osteoarthritis, unspecified site; I82.411 Acute embolism and thrombosis of right femoral vein; Z82.49 Family history of ischemic heart disease and other diseases of the circulatory system; Z83.3 Family history of diabetes mellitus; Z79.899 Other long term (current) drug therapy; Z79.01 Long term (current) use of anticoagulants; Z79.82 Long term (current) use of aspirin; Z87.442 Personal history of urinary calculi
CPT/HCPCS: 36415; 80048; 85014; 85018; 85025; 85049; 85610; 85730; G0378

== ENCOUNTER 2018-07-24 12:35 | Inpatient (IN) | payer MEDICARE, OTHER ==
[2018-07-24 13:27] LABS: Basophils # (Auto) 0.1 K/mm3 (0.0-0.1); Basophils % (Auto) 0.7 % (0.0-1.8); Eosinophils # (Auto) 0.2 K/mm3 (0.0-0.4); Eosinophils % (Auto) 2.1 % (0.0-4.3); Hematocrit 40.6 % (35.5-45.6); Hemoglobin 13.6 gm/dl (11.8-15.2); Lymphocytes # (Auto) 1.5 K/mm3 (1.2-5.4); Lymphocytes % (Auto) 19.9 % (13.4-35.0); Mean Corpuscular HGB Conc 34 % (32-34); Mean Corpuscular Volume 88 fl (84-94); Monocytes # (Auto) 0.6 K/mm3 (0.0-0.8); Monocytes % (Auto) 7.6 % (0.0-7.3); Platelet Count 163 K/mm3 (140-440); Red Blood Count 4.62 M/mm3 (3.65-5.03); Red Cell Distribution Width 13.5 % (13.2-15.2)
[2018-07-24 13:35] LABS: INR 1.05 (0.87-1.13)
[2018-07-24 13:36] LABS: Partial Thromboplastin Time 26.8 Sec. (24.2-36.6)
[2018-07-24] MEDS ORDERED: NACL 0.9% 1000 ML 1,000 ML IV SCH (14:00)
[2018-07-24 14:12] LABS: Calcium 8.7 mg/dL (8.4-10.2)
[2018-07-24] MEDS ORDERED: HEPARIN/NS 5000 UNIT/500ML(CATH LAB) 1,000 ML IR ONE ×2 (15:10→17:37)
[2018-07-24] MEDS ORDERED: ANCEF/STERILE WATER 2 GM/20 ML 2 GM/20 ML SYRINGE IV ONE (15:11)
[2018-07-24] MEDS: VERSED ONE ×6 (15:40→16:52)
[2018-07-24] MEDS: SUBLIMAZE ONE ×11 (15:40→18:37)
[2018-07-24] MEDS: XYLOCAINE 2% INFILTRATI ONE ×3 (15:47→17:02)
[2018-07-24] MEDS ORDERED: HEPARIN/NS 5000 UNIT/500ML(CATH LAB) 500 ML IR ONE (16:19)
[2018-07-24] MEDS: VERSED IV ONE ×5 (17:01→17:56)
[2018-07-24] MEDS: HEPARIN 10,000 UNITS/10 ML ONE ×2 (17:26→18:06)
[2018-07-24] MEDS ORDERED: NITROGLYCERIN SYRINGE 0 ML ONE (17:46)
[2018-07-24] MEDS ORDERED: NACL 0.9% 1000 ML 1,000 ML ONE (18:12)
[2018-07-24 19:47] VITALS: BP 172/77
--- NOTE | 2018-07-25 16:19 | Operative Report ---
Operative Report Operative Report: Date of Service: 07/24/18 Procedure: IVC filter. Right lower extremity venogram. Right lower extremity venous angioplasty Indication: Right leg swelling. Right leg DVT Physician: Ady Anesthesia; Conscious sedation Medications: Heparin 7000 units Contrast: 50 cc Complications: None Techinique: Following informed and written consent, the patient was placed supine on the angiographic table and the left groin prepped and draped in the usual sterile fashion. Lidocaine was used for local anesthetic. Using ultrasound guidance, the left common femoral vein was accessed using a micropuncture access set and a 5Fr vascular sheath inserted. Contrast was injected to opacify the IVC. The sheath was upsized to 8 Fr. Then was exchanged for the long sheath of the IVC filter which was positioned in an infra-renal position and fully deployed. Subsquently a rim catheter was used to cross over the contraleral side and a 5 Fr vertebral catheter advanced to the right common femoral vein. Contrast was injected to evaluated the right iliac veins. Attempts were made to cross into the femoral vein which were unsuccessful. At this point the right leg was prepped in a sterile fashion and access of the right anterior tibial veins was performed using ultrasound guidance and using a micropuncture access set. A 6 Fr sheath was inserted and contrast injected using hand injection to the pelvis. A glide wire was negotiated into the iliac veins and the vertebral catheter advanced into the external iliac vein. An amplatz wire was then advanced through the catheter into the external iliac vein. The left groin sheath was removed and manual compression applied until adequate hemostasis achieved. The popliteal and femoral veins were dilated using a 5 x 220 and 7 x 220 mm balloon. Subsequently and angiojet catheter was attempted to be advanced into the popliteal vein however unsuccessully. At this point repeat angioplasty was performed and post [employer] images were obtained throught the sheath and with placement of the catheter in the proximal femoral vein. The procedure was terminated and the right ankle sheath removed and manual compression applied until adequate hemostasis was achieved. The patient was discharged without complication following adequate recovery time. Findings: The IVC is widely patent without evidence for thrombus. Successful placement of an infra-renal IVC filter. The right tibial veins are patent. Thre is evidence for fibrosis and chronic thrombus involving the popliteal and femoral veins. There is also some areas of narrowing of the tibial veins near the popliteal vein oirign. There is no definite residual acute thrombus. Following balloon angioplasty there remained narrow lumen in the popliteal and femoral veins. I was unable to advane the angiojet catheter across these areas due to the presence of the fibrotic lumen. The common femoral and great saphenous veins are widely patent. The external and common iliac veins are patent. I did not feel do overnight infusion of thrombolysis would significantly improve the outcome especially given the risk of bleeding complications. Impression: 1. Successful placement of IVC filter. 2. Chronic thrombus with fibrosis, scarring and luminal narrowing of the femoral and popliteal veins 3. Improved flow following balloon angioplasty. 4. Patent common femoral and iliac veins.
--- NOTE | 2018-07-30 07:27 | Addendum Note ---
- Addendum Date: 08/07/18 - Discharge Diagnoses (1) DVT (deep venous thrombosis) Status: Chronic Qualifiers: DVT location: lower extremity Affected thrombotic vein of extremity: femoral Chronicity: chronic Laterality: right Qualified Code(s): I82.511 - Chronic embolism and thrombosis of right femoral vein
== END 2018-07-24 19:59 | disposition home or self-care (01) | DRG 254 ==
LOC: CATHLABREC 12:35 → CC1 15:27
PROVIDERS: ADMIT Radiology Vascular & Interventional Radiology; ATTEND Radiology Vascular & Interventional Radiology
PROC: 06H03DZ Insertion of Intraluminal Device into Inferior Vena Cava, Percutaneous Approach (ICD-10-PCS; principal; 2018-07-24)
PROC: 027 Heart and Great Vessels, Dilation (ICD-10-PCS; 2018-07-24)
PROC: 067M3ZZ Dilation of Right Femoral Vein, Percutaneous Approach (ICD-10-PCS; 2018-07-24)
PROC: B51B1ZZ Fluoroscopy of Right Lower Extremity Veins using Low Osmolar Contrast (ICD-10-PCS; 2018-07-24)
PROC: B54BZZA Ultrasonography of Right Lower Extremity Veins, Guidance (ICD-10-PCS; 2018-07-24)
DX: I82.511 Chronic embolism and thrombosis of right femoral vein (principal); I82.531 Chronic embolism and thrombosis of right popliteal vein; I10 Essential (primary) hypertension; M10.9 Gout, unspecified; E89.0 Postprocedural hypothyroidism; Z83.3 Family history of diabetes mellitus; Z82.49 Family history of ischemic heart disease and other diseases of the circulatory system; Z84.89 Family history of other specified conditions
CPT/HCPCS: 36415; 37187; 37191; 37248; 76937; 80048; 85025; 85384; 85610; 85730; 86850; 86900; 86901; G0378; C1725; C1751; C1757; C1769; C1880; C1894; J0690; J1644; J2250; J3010; J7030; Q9967

== ENCOUNTER 2018-10-08 06:27 | Day surgery (SDC) | payer MEDICARE, OTHER ==
[2018-10-08] MEDS ORDERED: SUBLIMAZE ONE (07:49)
[2018-10-08] MEDS ORDERED: DIPRIVAN 10 MG/ML IV ONE (07:49)
[2018-10-08] MEDS ORDERED: XYLOCAINE MPF 2% ONE (07:49)
[2018-10-08] MEDS ORDERED: LACTATED RINGERS 1,000 ML IV SCH (08:30)
--- NOTE | 2018-10-08 08:33 | Anesthesia Consultation ---
Anesthesia Consult and Med Hx Date of service: 10/08/18 - Airway Anesthetic Teeth Evaluation: Poor (denies loose teeth) ROM Head & Neck: Adequate Mental/Hyoid Distance: Inadequate Mallampati Class: Class III Intubation Access Assessment: Possibly Difficult - Pulmonary Exam CTA: Yes - Cardiac Exam Cardiac Exam: RRR - Pre-Operative Health Status ASA Pre-Surgery Classification: ASA3 Proposed Anesthetic Plan: General - Pulmonary Hx Smoking: Yes (STOPPED X 20 YRS) Hx Respiratory Symptoms: No Hx Sleep Apnea: No ([place] PRE SCREEN HIGH RISK) - Cardiovascular System Hx Hypertension: Yes (took atenolol this morning) Hx Heart Attack/AMI: No Hx Percutaneous Transluminal Coronary Angioplasty (PTCA): No Hx Cardia Arrhythmia: No Hx Peripheral Vascular Disease: Yes (EUGENE FEMORAL VEIN STENOSIS; last dose eliquis 10/05/18 PM) - Central Nervous System Hx Seizures: No CVA: No Hx Psychiatric Problems: Yes (claustrophobia) - Gastrointestinal Hx Ulcer: Yes Hx Gastroesophageal Reflux Disease: Yes (asymptomatic today) - Endocrine Hx Renal Disease: No Hx Liver Disease: No Hx Insulin Dependent Diabetes: No Hx Non-Insulin Dependent Diabetes: Yes (diet controlled) Hx Hypothyroidism: Yes - Other Systems Hx Obesity: Yes - Additional Comments Anesthesia Medical History Comments: No hx anesthetic complications.
--- NOTE | 2018-10-08 08:33 | Anesthesia Day of Surgery ---
Anesthesia Day of Surgery - Day of Surgery Patient Examined: Yes Patient H&P Reviewed: Yes Patient is NPO: Yes Beta Blockers: Yes (last dose atenolol this morning)
[2018-10-08 08:43] LABS: INR 1.13 (0.87-1.13)
[2018-10-08 08:44] LABS: Partial Thromboplastin Time 28.8 Sec. (24.2-36.6)
[2018-10-08] MEDS ORDERED: PEPCID IV NR (09:00)
[2018-10-08] MEDS ORDERED: SUBLIMAZE IV PRN (09:00)
[2018-10-08] MEDS ORDERED: ANCEF/STERILE WATER 2 GM/20 ML IV NR (09:00)
--- NOTE | 2018-10-08 09:54 | Post Operative Note ---
Date of procedure: 10/08/18 Pre-op diagnosis: + cytology Post-op diagnosis: same Findings: erythema lesion L distal ureter Procedure: cysto biopsies rpgs left ureteroscopy biopsies jstent Anesthesia: GETA Surgeon: IVETT JENNINGS Estimated blood loss: minimal Pathology: list (bladder) Specimen disposition: to lab Condition: stable Disposition: PACU
--- NOTE | 2018-10-08 09:55 | Discharge Summary ---
Short Stay Discharge Plan Activity: other (no straining ) Weight Bearing Status: Full Weight Bearing Diet: low fat, low cholesterol, low salt Special Instructions: other (teach maurer care) Durable Medical Equipment Needed Upon Discharge: other (maurer and j stent ) Follow up with: ANUPAM COLLADO MD [Primary Care Provider] - 7 Days IVETT JENNINGS MD [Staff Physician] - 7 Days
[2018-10-08] MEDS ORDERED: OMNIPAQUE 300 MG/50 ML (CATH LAB) IV ONE (10:05)
[2018-10-08] MEDS ORDERED: LASIX ONE (11:14)
[2018-10-08] MEDS ORDERED: TORADOL ONE (11:14)
--- NOTE | 2018-10-08 11:32 | Operative Report ---
PREOPERATIVE DIAGNOSES: Positive cytology, hematuria. POSTOPERATIVE DIAGNOSES: Positive cytology, hematuria, with evidence of a lesion in the left distal ureter in the intramural ureter. PROCEDURE: Cystoscopy, retrogrades biopsies of the bladder; biopsies, left orifice; left ureteroscopy, biopsies of the ureteral lesion with a J stent. SURGEON: Nicola Aviles MD ANESTHESIA: General. FINDINGS: This is a gentleman who presented with hematuria. He had positive cytology. It continues to be positive. He had normal CT scan and retrogrades, but we need to be more fluoroscopy and followup because the cytology still positive, so he now presents for treatment. All risks and complications discussed. DESCRIPTION OF PROCEDURE: The patient was brought to the operating room and placed on the operating table. Following the induction of anesthesia, placed in lithotomy position, prepped and draped in usual sterile fashion. Cystourethroscopy showed some mild prostatic enlargement. There were no specific bladder lesions. There was slight erythema. Posterior bladder wall was biopsied. Retrograde showed apple core distal ureter. This was different than previous. We had difficulty getting even a wire up there. We biopsied surrounding the left orifice and we needed the ureteroscope and under direct vision, a wire coiled up in the kidney. We exchanged this and obtained cytology from the left side and then with the rigid scope, we were able to see what appeared to be a solid lesion with narrowing of the left distal ureter. Biopsies were taken with the small ureteroscopic biopsy. The patient tolerated the procedure well. We placed a #7 double J. There was no significant bleeding. Family was notified, brought to recovery in stable condition. JOB# [id number] KAREEN/SHER
--- NOTE | 2018-10-08 11:54 | Fluoroscopy Report ---
FLUOROSCOPY RETROGRADE UROGRAPHY: HISTORY: Gross hematuria. FINDINGS: Fluoroscopy was provided by radiology during retrograde urography by the urologist. 10 fluoroscopic images were captured. The right retrograde pyelogram was normal. There is mild stenosis and moderate irregularity of the distal 2 cm of the left ureter. Neoplasm or inflammation in this area is suspected. There is minimal left hydroureter. The remainder of the left collecting system is unremarkable. IMPRESSION: Abnormal distal left ureter as described.
[2018-10-08 11:56] VITALS: BP 148/72
== END 2018-10-08 12:50 | disposition home or self-care (01) ==
LOC: OR 06:27
PROVIDERS: ATTEND Urology
DX: C66.2 Malignant neoplasm of left ureter (principal); C79.11 Secondary malignant neoplasm of bladder; R31.29 Other microscopic hematuria; N40.0 Benign prostatic hyperplasia without lower urinary tract symptoms; I10 Essential (primary) hypertension; K21.9 Gastro-esophageal reflux disease without esophagitis; E11.51 Type 2 diabetes mellitus with diabetic peripheral angiopathy without gangrene; E78.00 Pure hypercholesterolemia, unspecified; E66.9 Obesity, unspecified; M19.90 Unspecified osteoarthritis, unspecified site; E03.9 Hypothyroidism, unspecified; N13.4 Hydroureter; F32.9 Major depressive disorder, single episode, unspecified; F41.9 Anxiety disorder, unspecified; Z79.899 Other long term (current) drug therapy; Z86.718 Personal history of other venous thrombosis and embolism; Z98.49 Cataract extraction status, unspecified eye; Z68.32 Body mass index [BMI] 32.0-32.9, adult; Z87.442 Personal history of urinary calculi; Z98.890 Other specified postprocedural states; Z88.8 Allergy status to other drugs, medicaments and biological substances
CPT/HCPCS: 36415; 52204; 52332; 52354; 74420; 82962; 84132; 85610; 85730; 88112; 88305; C1726; C1758; C1769; C2617; J0690; J1885; J1940; J2704; J3010; J7120; Q9967

== ENCOUNTER 2018-12-17 05:52 | Inpatient (IN) | payer MEDICARE, OTHER ==
--- NOTE | 2018-12-12 10:25 | Anesthesia Consultation ---
Anesthesia Consult and Med Hx Date of service: 12/12/18 - Airway Anesthetic Teeth Evaluation: Poor, Chipped ROM Head & Neck: Adequate Mental/Hyoid Distance: Adequate Mallampati Class: Class II Intubation Access Assessment: Probably Good - Pulmonary Exam CTA: Yes - Cardiac Exam Cardiac Exam: RRR - Pre-Operative Health Status ASA Pre-Surgery Classification: ASA3 (Cardiac clearance on chart) - Pulmonary Hx Smoking: Yes (STOPPED X 20 YRS) Hx Respiratory Symptoms: No SOB: Yes (SOB) Hx Sleep Apnea: No ([place] PRE SCREEN HIGH RISK) - Cardiovascular System Hx Hypertension: Yes (1997) Hx Heart Attack/AMI: No Hx Percutaneous Transluminal Coronary Angioplasty (PTCA): No Hx Cardia Arrhythmia: No Hx Peripheral Vascular Disease: Yes (EUGENE FEMORAL VEIN STENOSIS) - Central Nervous System Hx Seizures: No CVA: No Hx Psychiatric Problems: Yes (claustrophobia) - Gastrointestinal Hx Ulcer: Yes Hx Gastroesophageal Reflux Disease: Yes (asymptomatic today) - Endocrine Hx Renal Disease: No Hx Liver Disease: No Hx Insulin Dependent Diabetes: No Hx Non-Insulin Dependent Diabetes: Yes (diet controlled) Hx Hypothyroidism: Yes - Other Systems Hx Cancer: Yes (LEFT DISTAL URETERAL CANCER- RECENT DX) Hx Obesity: Yes
--- NOTE | 2018-12-12 10:26 | Anesthesia Day of Surgery ---
Anesthesia Day of Surgery - Day of Surgery Patient Examined: Yes Patient H&P Reviewed: Yes Patient is NPO: Yes
[2018-12-17 06:38] LABS: Basophils % (Auto) 0.5 % (0.0-1.8); Eosinophils # (Auto) 0.1 K/mm3 (0.0-0.4); Eosinophils % (Auto) 1.9 % (0.0-4.3); Hematocrit 38.4 % (35.5-45.6); Hemoglobin 12.7 gm/dl (11.8-15.2); Lymphocytes # (Auto) 1.4 K/mm3 (1.2-5.4); Lymphocytes % (Auto) 20.7 % (13.4-35.0); Mean Corpuscular HGB Conc 33 % (32-34); Mean Corpuscular Volume 87 fl (84-94); Monocytes # (Auto) 0.5 K/mm3 (0.0-0.8); Monocytes % (Auto) 6.6 % (0.0-7.3); Platelet Count 163 K/mm3 (140-440); Red Blood Count 4.41 M/mm3 (3.65-5.03); Red Cell Distribution Width 14.2 % (13.2-15.2)
[2018-12-17 06:48] LABS: INR 1.03 (0.87-1.13)
[2018-12-17 06:55] LABS: Partial Thromboplastin Time 23.6 Sec. (24.2-36.6)
[2018-12-17 07:01] LABS: Albumin 3.9 g/dL (3.9-5); Calcium 8.7 mg/dL (8.4-10.2)
[2018-12-17] MEDS ORDERED: ZEMURON IV ONE ×2 (07:06→09:25)
[2018-12-17] MEDS ORDERED: ZOFRAN ONE (07:06)
[2018-12-17] MEDS ORDERED: SUBLIMAZE ONE (07:07)
[2018-12-17] MEDS ORDERED: DIPRIVAN 10 MG/ML IV ONE (07:07)
[2018-12-17] MEDS ORDERED: XYLOCAINE MPF 2% ONE ×2 (07:11→10:33)
[2018-12-17] MEDS ORDERED: DECADRON ONE (07:12)
--- NOTE | 2018-12-17 07:17 | Anesthesia Day of Surgery ---
Anesthesia Day of Surgery - Day of Surgery Patient Examined: Yes Patient H&P Reviewed: Yes Patient is NPO: Yes
[2018-12-17] MEDS ORDERED: QUELICIN ONE (07:22)
[2018-12-17] MEDS ORDERED: METHYLENE BLUE ONE (07:32)
[2018-12-17] MEDS ORDERED: NEOSPORIN GU IR ONE ×2 (07:32→09:03)
[2018-12-17] MEDS ORDERED: LACTATED RINGERS 1,000 ML IV SCH (08:00)
[2018-12-17] MEDS ORDERED: NARCAN 0.4 MG/1 ML IV PRN (08:05)
[2018-12-17] MEDS ORDERED: MORPHINE IV PRN (08:05)
[2018-12-17] MEDS ORDERED: ZOFRAN IV PRN (08:05)
[2018-12-17] MEDS ORDERED: PHENYLEPHRINE/NS Syringe 1,000 MCG/10 ML IV ONE (08:33)
[2018-12-17] MEDS ORDERED: ACD-A 500 ML IV ONE (08:42)
[2018-12-17] MEDS ORDERED: ANCEF/STERILE WATER 2 GM/20 ML IV NR (09:00)
[2018-12-17] MEDS ORDERED: NACL 0.9% 500 ML 500 ML IV NR (09:00)
[2018-12-17] MEDS ORDERED: ACD-A IV ONE (09:03)
[2018-12-17] MEDS ORDERED: NACL 0.9% IR ONE (09:04)
[2018-12-17] MEDS ORDERED: DILAUDID ONE ×2 (09:11→11:41)
[2018-12-17] MEDS ORDERED: LASIX ONE (10:06)
[2018-12-17] MEDS ORDERED: LACTATED RINGERS 1,000 ML ONE (10:13)
[2018-12-17] MEDS ORDERED: ROBINUL ONE ×2 (10:16→10:22)
[2018-12-17] MEDS ORDERED: BLOXIVERZ ONE (10:16)
[2018-12-17] MEDS ORDERED: MARCAINE 0.25% INFILTRATI ONE (10:41)
--- NOTE | 2018-12-17 12:11 | Operative Report ---
PREOPERATIVE DIAGNOSIS: Left distal ureteral cancer. POSTOPERATIVE DIAGNOSIS: Left distal ureteral cancer. PROCEDURE: Left distal ureterectomy with psoas hitch and ureteroneocystostomy. SURGEON: Nicola Aviles MD ANESTHESIA: General. FINDINGS: This is a gentleman with a distal ureteral tumor who was diagnosed a few months ago. He went for a second opinion and he now presents for surgery. All risks and implications discussed. DESCRIPTION OF PROCEDURE: The patient was brought to the operating room and placed on the operating table. Following induction of anesthesia, he was placed in supine position, prepped and draped in usual sterile fashion. Tavares catheter was placed. A midline incision was made, carried through skin and superficial fascia to the rectus sheath. The rectus sheath was opened in the midline. Retractor was placed. The bladder was mobilized on both sides, so we would have plenty of flexibility on this floppy bladder to do a psoas hitch. We tried to mobilize the ureter extraperitoneally, but it was fixed to the vasculature. We opened the peritoneum and ureter was stuck at the bifurcation. It was dissected free and carried down to the bladder. Small vessels were clipped as needed. We carried the dissection all the way down to the bladder. At that point, we did a cystotomy. We filled the bladder up, opened the bladder and so the stent in the orifice. A suture was placed around the stent and using the cautery, we dissected the orifice, being careful to avoid injury to the right side. At this point, the bladder was mobilized inside and out and specimen was removed intact approximately 3 cm above the area of the tumor. We sent a frozen section and that was atypical, but no cancer and that is consistent with having a stent for quite some time as well. At this point, the wound was irrigated. Stay sutures were placed. A cystotomy was made. Two sutures were placed with a psoas hitch to be secured later. At this point, the ureter was brought through a dependent portion of it towards the dome of the bladder and secured with multiple at least 6-8 sutures of 3-0 Vicryl. Psoas suture was tied. There was no excess tension. The bladder was closed in multiple layers and was watertight. A new 20-[place] catheter was placed, which was Silastic. RIAN was placed in the space of Retzius. Wound was irrigated. Tisseel was used. Closure was accomplished with a muscle and was approximated with 3-0 and 2-0 Vicryl. Fascia with looped PDS and superficial fascia with Vicryl and skin with clips. Estimated blood loss was 150 mL. No complications. Family notified, brought to recovery in stable condition. JOB# [id number] KAREEN/SHER
[2018-12-17 13:51] LABS: Hematocrit 37.6 % (35.5-45.6); Hemoglobin 12.2 gm/dl (11.8-15.2); Mean Corpuscular HGB Conc 33 % (32-34); Mean Corpuscular Volume 88 fl (84-94); Platelet Count 155 K/mm3 (140-440); Red Blood Count 4.26 M/mm3 (3.65-5.03); Red Cell Distribution Width 14.4 % (13.2-15.2)
--- NOTE | 2018-12-17 13:51 | Post Anesthesia Evaluation ---
- Post Anesthesia Evaluation Patient Participated: Yes Airway Patent: Yes Stable Respiratory Function: Yes Nausea/Vomiting: No Temp > 96.8F: Yes Pain Manageable: Yes Adequeate Hydration: Yes Anesthesia Complications: No Block Receding Appropriately: Yes Patient on Ventilator: No
[2018-12-17 14:15] LABS: Calcium 8.5 mg/dL (8.4-10.2)
[2018-12-17] MEDS: PERCOCET 5/325 PO PRN ×2 (14:33→21:06)
[2018-12-17] MEDS: D5W/0.45% NACL/KCL 20 MEQ 20 MEQ/1,000 ML BAG IV SCH ×2 (14:45→23:07)
[2018-12-17 15:07] LABS: Basophils % (Manual) 0 % (0.0-1.8); Eosinophils % (Manual) 0 % (0.0-4.3); Platelet Estimate Consistent w Auto; RBC Morphology Normal; Total Cells Counted 100
--- NOTE | 2018-12-17 17:22 | Post Operative Note ---
Date of procedure: 12/17/18 Pre-op diagnosis: ureteral cancer Post-op diagnosis: same Findings: as above Procedure: L ureteral resection reimplant Anesthesia: GETA Surgeon: IVETT JENNINGS Estimated blood loss: other (150) Pathology: list (ureter) Specimen disposition: to lab Condition: stable Disposition: PACU
[2018-12-17] MEDS: ANCEF/NS 1 GM/50 ML 1 GM/50 ML BAG IV SCH (18:19)
--- NOTE | 2018-12-18 00:44 | Consultation ---
History of Present Illness - Reason for Consult Consult date: 12/17/18 Medical management Requesting physician: IVETT JENNINGS - History of Present Illness S/p Left ureteral tumor resection.Post op doing well. Past History Past Medical History: hypertension, hyperlipidemia, hypothyroidism, other (bph and vit D def ) Past Surgical History: Other (L ureteral tumor removal) Social history: lives with family, full code Family history: hypertension Medications and Allergies Allergies Allergy/AdvReac Type Severity Reaction Status Date / Time kiwi Allergy Mild TONGUE Verified 08/12/15 06:18 SWELLING, EYES WATERY Home Medications Medication Instructions Recorded Confirmed Last Taken Type Famotidine [Pepcid] 40 mg PO DAILY 08/12/15 12/17/18 11/16/18 08:00 History Furosemide [Lasix TAB] 40 mg PO DAILY 08/12/15 12/17/18 10/17/18 08:00 History Levothyroxine [Synthroid] 137 mcg PO DAILY 08/12/15 12/17/18 12/17/18 05:00 History Terazosin (Nf) [Hytrin (Nf)] 5 mg PO QHS 08/12/15 12/17/18 12/17/18 05:00 History Apixaban [Eliquis] 5 mg PO Q12HR tablet 07/15/18 12/17/18 12/14/18 17:00 Rx Rosuvastatin (Nf) [Crestor] 5 mg PO QHS 10/01/18 12/17/18 12/16/18 19:00 History Ergocalciferol (Vitamin D2) 2,000 unit PO DAILY 12/10/18 12/17/18 12/10/18 08:00 History [Vitamin D2] Finasteride [Proscar] 5 mg PO QHS 12/10/18 12/17/18 12/17/18 05:00 History Toprol Xl 50 mg PO DAILY 12/10/18 12/17/18 12/17/18 05:00 History amLODIPine [Norvasc] 5 mg PO DAILY 12/10/18 12/17/18 12/16/18 19:00 History Active Meds: Active Medications Lactated Ringer's (Lactated Ringers) 1,000 mls @ 100 mls/hr IV DIRECT ÁNGEL Last Admin: 12/17/18 07:34 Dose: 100 mls/hr Documented by: Potassium Chloride/Dextrose/Sod Cl (D5w/0.45% Nacl/Kcl 20 Meq) 20 meq in 1,000 mls @ 125 mls/hr IV DIRECT ÁNGEL Last Admin: 12/17/18 23:07 Dose: 125 mls/hr Documented by: Cefazolin Sodium (Ancef/Ns 1 Gm/50 Ml) 1 gm in 50 mls @ 100 mls/hr IV Q8H ÁNGEL; Protocol Stop: 12/20/18 02:29 Last Admin: 12/17/18 18:19 Dose: 100 mls/hr Documented by: Morphine Sulfate (Morphine) 2 mg IV Q4H PRN PRN Reason: Pain, Moderate (4-6) Naloxone HCl (Narcan 0.4 Mg/1 Ml) 0.1 mg IV Q2MIN PRN PRN Reason: Res Rate </= 8 or 02 SAT < 92% Ondansetron HCl (Zofran) 4 mg IV Q8H PRN PRN Reason: N/V unrelieved by Reglan Oxycodone/Acetaminophen (Percocet 5/325) 1 tab PO Q6H PRN PRN Reason: Pain, Moderate (4-6) Last Admin: 12/17/18 21:06 Dose: 1 tab Documented by: Review of Systems All systems: negative Exam - Constitutional Vitals: Temp Pulse Resp BP Pulse Ox 97.7 F 65 16 154/68 98 12/17/18 23:19 12/17/18 22:00 12/17/18 22:00 12/17/18 22:00 12/17/18 22:00 General appearance: Present: no acute distress, well-nourished - EENT Eyes: Present: PERRL ENT: hearing intact, clear oral mucosa - Neck Neck: Present: supple, normal ROM - Respiratory Respiratory effort: normal Respiratory: bilateral: CTA - Cardiovascular Heart rate: 78 Rhythm: regular Heart Sounds: Present: S1 & S2. Absent: rub, click - Extremities Extremities: no ischemia, pulses intact, pulses symmetrical, No edema Peripheral Pulses: within normal limits - Abdominal General gastrointestinal: Present: soft, non-tender, non-distended, normal bowel sounds Male genitourinary: Present: normal - Rectal Rectal Exam: deferred - Integumentary Integumentary: Present: clear, warm, dry - Musculoskeletal Musculoskeletal: gait normal, strength equal bilaterally - Psychiatric Psychiatric: appropriate mood/affect, intact judgment & insight - Neurologic Neurologic: CNII-XII intact, moves all extremities - Allied Health Allied health notes reviewed: nursing, case management Results - Labs CBC & Chem 7: 12/17/18 13:31 12/17/18 13:31 Labs: Abnormal lab results 12/17/18 12/17/18 12/17/18 Range/Units 06:25 06:25 06:25 Seg Neutrophils % 70.3 H (40.0-70.0) % Seg Neuts % (Manual) (40.0-70.0) % Lymphocytes % (Manual) (13.4-35.0) % Seg Neutrophils # Man (1.8-7.7) K/mm3 Lymphocytes # (Manual) (1.2-5.4) K/mm3 APTT 23.6 L (24.2-36.6) Sec. Chloride (98-107) mmol/L BUN (9-20) mg/dL Glucose (75-100) mg/dL POC Glucose (70-105) Crossmatch See Detail 12/17/18 12/17/18 12/17/18 Range/Units 06:25 06:37 12:35 Seg Neutrophils % (40.0-70.0) % Seg Neuts % (Manual) (40.0-70.0) % Lymphocytes % (Manual) (13.4-35.0) % Seg Neutrophils # Man (1.8-7.7) K/mm3 Lymphocytes # (Manual) (1.2-5.4) K/mm3 APTT (24.2-36.6) Sec. Chloride 109.0 H (98-107) mmol/L BUN 28 H (9-20) mg/dL Glucose 142 H (75-100) mg/dL POC Glucose 134 H 185 H (70-105) Crossmatch 12/17/18 12/17/18 Range/Units 13:31 13:31 Seg Neutrophils % (40.0-70.0) % Seg Neuts % (Manual) 97.0 H (40.0-70.0) % Lymphocytes % (Manual) 1.0 L (13.4-35.0) % Seg Neutrophils # Man 10.4 H (1.8-7.7) K/mm3 Lymphocytes # (Manual) 0.1 L (1.2-5.4) K/mm3 APTT (24.2-36.6) Sec. Chloride 107.6 H (98-107) mmol/L BUN 27 H (9-20) mg/dL Glucose 195 H (75-100) mg/dL POC Glucose (70-105) Crossmatch Assessment and Plan - Patient Problems (1) Status post surgery Current Visit: Yes Status: Acute Plan to address problem: Had L ureteral tumor resection Post op doing well (2) HTN (hypertension) Current Visit: No Status: Chronic Qualifiers: Hypertension type: essential hypertension Qualified Code(s): I10 - Essential (primary) hypertension Plan to address problem: Cont antihypertensives (3) BPH (benign prostatic hyperplasia) Current Visit: Yes Status: Chronic Qualifiers: Lower urinary tract symptom presence: symptoms present Plan to address problem: Cont Flomax and Proscar (4) Hypothyroidism (acquired) Current Visit: Yes Status: Chronic Plan to address problem: Cont synthyroid (5) HLD (hyperlipidemia) Current Visit: Yes Status: Chronic Qualifiers: Hyperlipidemia type: mixed hyperlipidemia Qualified Code(s): E78.2 - Mixed hyperlipidemia Plan to address problem: Cont statins (6) Vitamin D deficiency Current Visit: Yes Status: Chronic Plan to address problem: Cont vit D (7) Hyperglycemia Current Visit: Yes Status: Acute Plan to address problem: Check A1c Coverage for now Primary team to discuss about diabetes (8) DVT prophylaxis Current Visit: No Status: Acute Plan to address problem: On scd's and GI prophylaxis
[2018-12-18] MEDS: ANCEF/NS 1 GM/50 ML 1 GM/50 ML BAG IV SCH ×3 (02:00→17:02)
[2018-12-18] MEDS: SYNTHROID PO SCH ×2 (07:00→09:58)
[2018-12-18] MEDS: D5W/0.45% NACL/KCL 20 MEQ 20 MEQ/1,000 ML BAG IV SCH (07:15)
[2018-12-18] MEDS: HumaLOG SUB-Q SCH ×4 (07:30→21:18)
[2018-12-18 07:32] LABS: Hematocrit 35.2 % (35.5-45.6); Hemoglobin 11.7 gm/dl (11.8-15.2); Mean Corpuscular HGB Conc 33 % (32-34); Mean Corpuscular Volume 88 fl (84-94); Platelet Count 157 K/mm3 (140-440); Red Cell Distribution Width 14.1 % (13.2-15.2)
[2018-12-18 07:49] LABS: Calcium 8.6 mg/dL (8.4-10.2)
[2018-12-18] MEDS ORDERED: KIONEX PO ONE (08:14)
--- NOTE | 2018-12-18 08:26 | Progress Note ---
Assessment and Plan Assessment and plan: -- Ureteral cancer s/p surgery Current Visit: Yes Status: Acute Plan to address problem: s/p L ureteral resection reimplant Management per Urology --Mild drop in H/H Closely monitor h&H and trasfuse as needed --Hyperkalemia: Kayexalate,monitor electrolytes -- HTN (hypertension) Current Visit: No Status: Chronic Plan to address problem: Cont antihypertensives --BPH (benign prostatic hyperplasia) Current Visit: Yes Status: Chronic Plan to address problem: Cont Flomax and Proscar -- Hypothyroidism (acquired) Current Visit: Yes Status: Chronic Plan to address problem: Cont synthyroid -- HLD (hyperlipidemia) Current Visit: Yes Status: Chronic Plan to address problem: Cont statins -- Vitamin D deficiency Current Visit: Yes Status: Chronic Plan to address problem: Cont vit D -- Hyperglycemia Current Visit: Yes Status: Acute Plan to address problem: Check A1c Accu-Chek sliding scale coverage and ADA diet Insulin as needed --DVT prophylaxis Current Visit: No Status: Acute Plan to address problem: On scd's and GI prophylaxis --Full code Monitor closely and adjust management as needed Critical care time 35 minutes History Interval history: Patient seen and examined medical records reviewed Patient complains of some pain at the surgical site Vital signs noted Hospitalist Physical - Constitutional Vitals: Temp Pulse Resp BP Pulse Ox 98.3 F 68 20 147/65 100 12/18/18 04:00 12/18/18 07:16 12/18/18 07:16 12/18/18 07:16 12/18/18 08:02 General appearance: Present: no acute distress, well-nourished, obese - EENT Eyes: Present: PERRL, EOM intact - Neck Neck: Present: supple, normal ROM - Respiratory Respiratory effort: normal Respiratory: bilateral: diminished, negative: rales, rhonchi, wheezing - Cardiovascular Rhythm: regular Heart Sounds: Present: S1 & S2 - Extremities Extremities: no ischemia, No edema - Abdominal General gastrointestinal: soft, non-tender, non-distended, normal bowel sounds - Integumentary Integumentary: Present: clear, warm - Psychiatric Psychiatric: appropriate mood/affect, cooperative - Neurologic Neurologic: moves all extremities Results - Labs CBC & Chem 7: 12/18/18 07:06 12/19/18 07:26 Labs: Laboratory Last Values WBC 9.5 K/mm3 (4.5-11.0) 12/18/18 07:06 RBC 4.00 M/mm3 (3.65-5.03) 12/18/18 07:06 Hgb 11.7 gm/dl (11.8-15.2) L 12/18/18 07:06 Hct 35.2 % (35.5-45.6) L 12/18/18 07:06 MCV 88 fl (84-94) 12/18/18 07:06 MCH 29 pg (28-32) 12/18/18 07:06 MCHC 33 % (32-34) 12/18/18 07:06 RDW 14.1 % (13.2-15.2) 12/18/18 07:06 Plt Count 157 K/mm3 (140-440) 12/18/18 07:06 Lymph % (Auto) 20.7 % (13.4-35.0) 12/17/18 06:25 Kane % (Auto) 6.6 % (0.0-7.3) 12/17/18 06:25 Eos % (Auto) 1.9 % (0.0-4.3) 12/17/18 06:25 Baso % (Auto) 0.5 % (0.0-1.8) 12/17/18 06:25 Lymph # 1.4 K/mm3 (1.2-5.4) 12/17/18 06:25 Kane # 0.5 K/mm3 (0.0-0.8) 12/17/18 06:25 Eos # 0.1 K/mm3 (0.0-0.4) 12/17/18 06:25 Baso # 0.0 K/mm3 (0.0-0.1) 12/17/18 06:25 Add Manual Diff Complete 12/17/18 13:31 Total Counted 100 12/17/18 13:31 Seg Neutrophils % Carton Stenciler 12/17/18 13:31 Seg Neuts % (Manual) 97.0 % (40.0-70.0) H 12/17/18 13:31 0 % 12/17/18 13:31 1.0 % (13.4-35.0) L 12/17/18 13:31 Reactive Lymphs % (Man) 0 % 12/17/18 13:31 2.0 % (0.0-7.3) 12/17/18 13:31 0 % (0.0-4.3) 12/17/18 13:31 0 % (0.0-1.8) 12/17/18 13:31 0 % 12/17/18 13:31 0 % 12/17/18 13:31 0 % 12/17/18 13:31 0 % 12/17/18 13:31 Nucleated RBC % Not Reportable 12/17/18 13:31 Seg Neutrophils # 4.9 K/mm3 (1.8-7.7) 12/17/18 06:25 Seg Neutrophils # Man 10.4 K/mm3 (1.8-7.7) H 12/17/18 13:31 Band Neutrophils # 0.0 K/mm3 12/17/18 13:31 0.1 K/mm3 (1.2-5.4) L 12/17/18 13:31 Abs React Lymphs (Man) 0.0 K/mm3 12/17/18 13:31 0.2 K/mm3 (0.0-0.8) 12/17/18 13:31 0.0 K/mm3 (0.0-0.4) 12/17/18 13:31 0.0 K/mm3 (0.0-0.1) 12/17/18 13:31 0.0 K/mm3 12/17/18 13:31 0.0 K/mm3 12/17/18 13:31 0.0 K/mm3 12/17/18 13:31 Blast Cells # 0.0 K/mm3 12/17/18 13:31 WBC Morphology Not Reportable 12/17/18 13:31 Hypersegmented Neuts Not Reportable 12/17/18 13:31 Hyposegmented Neuts Not Reportable 12/17/18 13:31 Hypogranular Neuts Not Reportable 12/17/18 13:31 Not Reportable 12/17/18 13:31 Not Reportable 12/17/18 13:31 Not Reportable 12/17/18 13:31 Not Reportable 12/17/18 13:31 Not Reportable 12/17/18 13:31 Not Reportable 12/17/18 13:31 Consistent w auto 12/17/18 13:31 Not Reportable 12/17/18 13:31 Plt Clumps, EDTA Not Reportable 12/17/18 13:31 Not Reportable 12/17/18 13:31 Not Reportable 12/17/18 13:31 Not Reportable 12/17/18 13:31 Plt Morphology Comment Not Reportable 12/17/18 13:31 RBC Morphology Normal 12/17/18 13:31 Dimorphic RBCs Not Reportable 12/17/18 13:31 Not Reportable 12/17/18 13:31 Not Reportable 12/17/18 13:31 Not Reportable 12/17/18 13:31 Not Reportable 12/17/18 13:31 Not Reportable 12/17/18 13:31 Not Reportable 12/17/18 13:31 Not Reportable 12/17/18 13:31 Not Reportable 12/17/18 13:31 Not Reportable 12/17/18 13:31 Not Reportable 12/17/18 13:31 Not Reportable 12/17/18 13:31 Not Reportable 12/17/18 13:31 Not Reportable 12/17/18 13:31 Not Reportable 12/17/18 13:31 Not Reportable 12/17/18 13:31 Not Reportable 12/17/18 13:31 Not Reportable 12/17/18 13:31 Not Reportable 12/17/18 13:31 Not Reportable 12/17/18 13:31 Acanthocytes (Spur) Not Reportable 12/17/18 13:31 Rouleaux Not Reportable 12/17/18 13:31 Not Reportable 12/17/18 13:31 Not Reportable 12/17/18 13:31 Not Reportable 12/17/18 13:31 Not Reportable 12/17/18 13:31 Hem Pathologist Commnt No 12/17/18 13:31 PT 13.2 Sec. (12.2-14.9) 12/17/18 06:25 INR 1.03 (0.87-1.13) 12/17/18 06:25 APTT 23.6 Sec. (24.2-36.6) L 12/17/18 06:25 Sodium 143 mmol/L (137-145) 12/18/18 07:06 Potassium 5.5 mmol/L (3.6-5.0) H D 12/18/18 07:06 Chloride 107.7 mmol/L (98-107) H 12/18/18 07:06 Carbon Dioxide 27 mmol/L (22-30) 12/18/18 07:06 14 mmol/L 12/18/18 07:06 BUN 26 mg/dL (9-20) H 12/18/18 07:06 1.4 mg/dL (0.8-1.5) 12/18/18 07:06 Estimated GFR 49 ml/min 12/18/18 07:06 19 % 12/18/18 07:06 Glucose 186 mg/dL (75-100) H 12/18/18 07:06 POC Glucose 197 (70-105) H 12/18/18 06:03 Calcium 8.6 mg/dL (8.4-10.2) 12/18/18 07:06 0.30 mg/dL (0.1-1.2) 12/17/18 06:25 AST 12 units/L (5-40) 12/17/18 06:25 ALT 16 units/L (7-56) 12/17/18 06:25 68 units/L (35-129) 12/17/18 06:25 7.0 g/dL (6.3-8.2) 12/17/18 06:25 3.9 g/dL (3.9-5) 12/17/18 06:25 1.3 % 12/17/18 06:25 Blood Type A POSITIVE 12/17/18 06:25 Antibody Screen Negative 12/17/18 06:25 Crossmatch See Detail 12/17/18 06:25 Active Medications - Current Medications Current Medications: Generic Name Dose Route Start Last Admin Trade Name Freq PRN Reason Stop Dose Admin Amlodipine Besylate 5 mg 12/18/18 10:00 Norvasc PO DAILY [facility] Atorvastatin Calcium 10 mg 12/18/18 22:00 Lipitor PO QHS [facility] Cholecalciferol 2,000 unit 12/18/18 10:00 Vitamin D3 PO DAILY [facility] Famotidine 40 mg 12/18/18 10:00 Pepcid PO DAILY [facility] Finasteride 5 mg 12/18/18 22:00 Proscar PO QHS [facility] Furosemide 40 mg 12/18/18 10:00 Lasix PO DAILY [facility] Cefazolin Sodium 1 gm in 50 mls @ 100 mls/hr 12/17/18 18:00 12/18/18 02:30 Ancef/Ns 1 Gm/50 Ml IV 12/20/18 02:29 Infused Q8H [facility] Infusion Protocol Dextrose/Sodium Chloride 1,000 mls @ 125 mls/hr 12/18/18 09:00 D5/0.45ns IV DIRECT [facility] Insulin Human Lispro 0 unit 12/18/18 07:30 Humalog SUB-Q ACHS [facility] Protocol Levothyroxine Sodium 112 mcg 12/18/18 10:00 Synthroid PO DAILY@0600 [facility] Levothyroxine Sodium 25 mcg 12/18/18 06:00 12/18/18 07:00 Synthroid PO 25 mcg DAILY@0600 [facility] Administration Metoprolol Succinate 50 mg 12/18/18 10:00 Toprol Xl PO DAILY [facility] Morphine Sulfate 2 mg 12/17/18 08:05 Morphine IV Q4H PRN Pain, Moderate (4-6) Naloxone HCl 0.1 mg 12/17/18 08:05 Narcan 0.4 Mg/1 Ml IV Q2MIN PRN Res Rate </= 8 or 02 SAT < 92% Ondansetron HCl 4 mg 12/17/18 08:05 Zofran IV Q8H PRN N/V unrelieved by David Oxycodone/Acetaminophen 1 tab 12/17/18 08:05 12/17/18 21:06 Percocet 5/325 PO 1 tab Q6H PRN Administration Pain, Moderate (4-6) Prazosin HCl 1 mg 12/18/18 10:00 Minipress PO Q12HR [facility] Sodium Polystyrene Sulfonate 30 gm 12/18/18 08:14 Kionex PO 12/18/18 08:15 ONCE ONE
[2018-12-18] MEDS: D5/0.45NS 1,000 ML IV SCH ×2 (08:33→17:00)
[2018-12-18] MEDS: TOPROL XL PO SCH (09:45)
[2018-12-18] MEDS: VITAMIN D3 PO SCH (09:45)
[2018-12-18] MEDS: LASIX PO SCH (09:46)
[2018-12-18] MEDS: PEPCID PO SCH (09:46)
[2018-12-18] MEDS: MINIPRESS PO SCH ×2 (09:47→21:25)
[2018-12-18] MEDS: NORVASC PO SCH (09:47)
--- NOTE | 2018-12-18 11:58 | Consultation ---
History of Present Illness - Reason for Consult Consult date: 12/18/18 S/p Left ureteral tumor resection and post-op management Requesting physician: IVETT JENNINGS - History of Present Illness 78 y/o male, post op from tumor removal. Stable. Continue to have blood in urine but vitals are normal. Past History Past Medical History: hypertension, hyperlipidemia, hypothyroidism, other (bph and vit D def ) Past Surgical History: Other (L ureteral tumor removal) Social history: lives with family, full code Family history: hypertension Medications and Allergies Allergies Allergy/AdvReac Type Severity Reaction Status Date / Time kiwi Allergy Mild TONGUE Verified 08/12/15 06:18 SWELLING, EYES WATERY Home Medications Medication Instructions Recorded Confirmed Last Taken Type Famotidine [Pepcid] 40 mg PO DAILY 08/12/15 12/17/18 11/16/18 08:00 History Furosemide [Lasix TAB] 40 mg PO DAILY 08/12/15 12/17/18 10/17/18 08:00 History Levothyroxine [Synthroid] 137 mcg PO DAILY 08/12/15 12/17/18 12/17/18 05:00 History Terazosin (Nf) [Hytrin (Nf)] 5 mg PO QHS 08/12/15 12/17/18 12/17/18 05:00 History Apixaban [Eliquis] 5 mg PO Q12HR tablet 07/15/18 12/17/18 12/14/18 17:00 Rx Rosuvastatin (Nf) [Crestor] 5 mg PO QHS 10/01/18 12/17/18 12/16/18 19:00 History Ergocalciferol (Vitamin D2) 2,000 unit PO DAILY 12/10/18 12/17/18 12/10/18 08:00 History [Vitamin D2] Finasteride [Proscar] 5 mg PO QHS 12/10/18 12/17/18 12/17/18 05:00 History Toprol Xl 50 mg PO DAILY 12/10/18 12/17/18 12/17/18 05:00 History amLODIPine [Norvasc] 5 mg PO DAILY 12/10/18 12/17/18 12/16/18 19:00 History Active Meds: Active Medications Amlodipine Besylate (Norvasc) 5 mg PO DAILY ÁNGEL Last Admin: 12/18/18 09:47 Dose: 5 mg Documented by: Atorvastatin Calcium (Lipitor) 10 mg PO QHS [facility] Cholecalciferol (Vitamin D3) 2,000 unit PO DAILY [facility] Last Admin: 12/18/18 09:45 Dose: 2,000 unit Documented by: Famotidine (Pepcid) 40 mg PO DAILY [facility] Last Admin: 12/18/18 09:46 Dose: 40 mg Documented by: Finasteride (Proscar) 5 mg PO QHS [facility] Furosemide (Lasix) 40 mg PO DAILY [facility] Last Admin: 12/18/18 09:46 Dose: 40 mg Documented by: Cefazolin Sodium (Ancef/Ns 1 Gm/50 Ml) 1 gm in 50 mls @ 100 mls/hr IV Q8H [facility]; Protocol Stop: 12/20/18 02:29 Last Infusion: 12/18/18 10:15 Dose: Infused Documented by: Dextrose/Sodium Chloride (D5/0.45ns) 1,000 mls @ 125 mls/hr IV DIRECT [facility] Last Admin: 12/18/18 08:33 Dose: 125 mls/hr Documented by: Insulin Human Lispro (Humalog) 0 unit SUB-Q ACHS [facility]; Protocol Last Admin: 12/18/18 07:30 Dose: 2 unit Documented by: Levothyroxine Sodium (Synthroid) 112 mcg PO DAILY@0600 [facility] Last Admin: 12/18/18 09:58 Dose: 112 mcg Documented by: Levothyroxine Sodium (Synthroid) 25 mcg PO DAILY@0600 [facility] Last Admin: 12/18/18 07:00 Dose: 25 mcg Documented by: Metoprolol Succinate (Toprol Xl) 50 mg PO DAILY [facility] Last Admin: 12/18/18 09:45 Dose: 50 mg Documented by: Morphine Sulfate (Morphine) 2 mg IV Q4H PRN PRN Reason: Pain, Moderate (4-6) Naloxone HCl (Narcan 0.4 Mg/1 Ml) 0.1 mg IV Q2MIN PRN PRN Reason: Res Rate </= 8 or 02 SAT < 92% Ondansetron HCl (Zofran) 4 mg IV Q8H PRN PRN Reason: N/V unrelieved by Reglan Oxycodone/Acetaminophen (Percocet 5/325) 1 tab PO Q6H PRN PRN Reason: Pain, Moderate (4-6) Last Admin: 12/17/18 21:06 Dose: 1 tab Documented by: Prazosin HCl (Minipress) 1 mg PO Q12HR ÁNGEL Last Admin: 12/18/18 09:47 Dose: 1 mg Documented by: Review of Systems All systems: negative Exam - Constitutional Vitals: Temp Pulse Resp BP Pulse Ox 97.8 F 61 16 171/88 95 12/18/18 08:00 12/18/18 11:30 12/18/18 11:30 12/18/18 11:30 12/18/18 11:30 General appearance: Present: no acute distress, well-nourished - EENT Eyes: Present: PERRL, EOM intact ENT: hearing intact - Neck Neck: Present: supple, normal ROM - Respiratory Respiratory effort: normal Respiratory: bilateral: CTA - Cardiovascular Rhythm: regular Heart Sounds: Present: S1 & S2 - Abdominal General gastrointestinal: Present: soft, normal bowel sounds Male genitourinary: Present: deferred - Rectal Rectal Exam: deferred Results - Labs CBC & Chem 7: 12/18/18 07:06 12/18/18 07:06 Labs: Abnormal lab results 12/17/18 12/17/18 12/17/18 Range/Units 12:35 13:31 13:31 Hgb (11.8-15.2) gm/dl Hct (35.5-45.6) % Seg Neuts % (Manual) 97.0 H (40.0-70.0) % Lymphocytes % (Manual) 1.0 L (13.4-35.0) % Seg Neutrophils # Man 10.4 H (1.8-7.7) K/mm3 Lymphocytes # (Manual) 0.1 L (1.2-5.4) K/mm3 Potassium (3.6-5.0) mmol/L Chloride 107.6 H (98-107) mmol/L BUN 27 H (9-20) mg/dL Glucose 195 H (75-100) mg/dL POC Glucose 185 H (70-105) 12/18/18 12/18/18 12/18/18 Range/Units 06:03 07:06 07:06 Hgb 11.7 L (11.8-15.2) gm/dl Hct 35.2 L (35.5-45.6) % Seg Neuts % (Manual) (40.0-70.0) % Lymphocytes % (Manual) (13.4-35.0) % Seg Neutrophils # Man (1.8-7.7) K/mm3 Lymphocytes # (Manual) (1.2-5.4) K/mm3 Potassium 5.5 H D (3.6-5.0) mmol/L Chloride 107.7 H (98-107) mmol/L BUN 26 H (9-20) mg/dL Glucose 186 H (75-100) mg/dL POC Glucose 197 H (70-105) 12/18/18 12/18/18 Range/Units 07:59 11:48 Hgb (11.8-15.2) gm/dl Hct (35.5-45.6) % Seg Neuts % (Manual) (40.0-70.0) % Lymphocytes % (Manual) (13.4-35.0) % Seg Neutrophils # Man (1.8-7.7) K/mm3 Lymphocytes # (Manual) (1.2-5.4) K/mm3 Potassium (3.6-5.0) mmol/L Chloride (98-107) mmol/L BUN (9-20) mg/dL Glucose (75-100) mg/dL POC Glucose 186 H 152 H (70-105) Assessment and Plan 78 y/o male s/p POD from left ureteral cancer removal. 1. Urology consulted [facility] so will defer blood pressure and management to them 2. Follow with [facility] for some form of dysrhythmia. Currently takes Toprol XL for that. nothing on monitor overnight 3. All other vitals stable and not critically ill. Stable for transfer out of the unit.
--- NOTE | 2018-12-18 12:56 | Progress Note ---
Assessment and Plan mild incisional tenderness good u/o ok to floor Subjective Date of service: 12/18/18 Principal diagnosis: ureteral tumor Objective - Constitutional Vitals: Vital Signs - 12hr 12/18/18 12/18/18 12/18/18 01:00 01:15 01:30 Temperature Pulse Rate 63 64 60 Pulse Rate [ From Monitor] Respiratory 18 16 15 Rate Blood Pressure 138/67 153/65 138/67 O2 Sat by Pulse 99 99 99 Oximetry 12/18/18 12/18/18 12/18/18 01:46 02:00 02:16 Temperature Pulse Rate 69 73 56 L Pulse Rate [ From Monitor] Respiratory 17 18 17 Rate Blood Pressure 138/67 159/69 159/69 O2 Sat by Pulse 98 97 97 Oximetry 12/18/18 12/18/18 12/18/18 02:30 02:37 02:46 Temperature 98.3 F Pulse Rate 63 67 Pulse Rate [ From Monitor] Respiratory 17 15 Rate Blood Pressure 159/69 159/69 O2 Sat by Pulse 98 96 Oximetry 12/18/18 12/18/18 12/18/18 03:00 03:16 03:30 Temperature Pulse Rate 61 62 62 Pulse Rate [ From Monitor] Respiratory 16 17 15 Rate Blood Pressure 153/60 153/60 159/69 O2 Sat by Pulse 97 97 97 Oximetry 12/18/18 12/18/18 12/18/18 03:46 04:00 04:16 Temperature 98.3 F Pulse Rate 64 63 67 Pulse Rate [ 63 From Monitor] Respiratory 17 18 16 Rate Blood Pressure 159/69 164/65 164/65 O2 Sat by Pulse 97 98 97 Oximetry 12/18/18 12/18/18 12/18/18 04:30 04:46 05:00 Temperature Pulse Rate 64 59 L 69 Pulse Rate [ From Monitor] Respiratory 14 14 16 Rate Blood Pressure 164/65 164/65 162/68 O2 Sat by Pulse 98 98 97 Oximetry 12/18/18 12/18/18 12/18/18 05:16 05:30 05:46 Temperature Pulse Rate 59 L 65 62 Pulse Rate [ From Monitor] Respiratory 14 14 15 Rate Blood Pressure 162/68 162/68 162/68 O2 Sat by Pulse 98 98 97 Oximetry 12/18/18 12/18/18 12/18/18 06:00 06:16 06:30 Temperature Pulse Rate 71 66 65 Pulse Rate [ From Monitor] Respiratory 19 17 19 Rate Blood Pressure 158/75 158/75 158/75 O2 Sat by Pulse 97 96 96 Oximetry 12/18/18 12/18/18 12/18/18 06:46 07:00 07:16 Temperature Pulse Rate 73 66 68 Pulse Rate [ From Monitor] Respiratory 21 17 20 Rate Blood Pressure 158/75 147/65 147/65 O2 Sat by Pulse 97 97 96 Oximetry 12/18/18 12/18/18 12/18/18 07:30 07:46 08:00 Temperature 97.8 F Pulse Rate 62 59 L 65 Pulse Rate [ 72 From Monitor] Respiratory 19 18 24 Rate Blood Pressure 147/65 147/65 155/67 O2 Sat by Pulse 95 96 96 Oximetry 12/18/18 12/18/18 12/18/18 08:02 08:16 08:30 Temperature Pulse Rate 68 65 Pulse Rate [ From Monitor] Respiratory 23 17 Rate Blood Pressure 155/67 155/67 O2 Sat by Pulse 100 96 97 Oximetry 12/18/18 12/18/18 12/18/18 08:46 09:00 09:16 Temperature Pulse Rate 65 61 67 Pulse Rate [ From Monitor] Respiratory 19 17 21 Rate Blood Pressure 155/67 151/70 151/70 O2 Sat by Pulse 96 96 95 Oximetry 12/18/18 12/18/18 12/18/18 09:30 09:45 09:46 Temperature Pulse Rate 57 L 68 69 Pulse Rate [ From Monitor] Respiratory 14 21 Rate Blood Pressure 151/70 151/70 155/67 O2 Sat by Pulse 96 95 Oximetry 12/18/18 12/18/18 12/18/18 09:47 10:00 10:16 Temperature Pulse Rate 66 81 86 Pulse Rate [ From Monitor] Respiratory 14 19 Rate Blood Pressure 151/70 171/88 171/88 O2 Sat by Pulse 97 95 Oximetry 12/18/18 12/18/18 12/18/18 10:30 10:46 11:00 Temperature Pulse Rate 72 60 64 Pulse Rate [ From Monitor] Respiratory 14 17 15 Rate Blood Pressure 171/88 171/88 153/68 O2 Sat by Pulse 95 94 96 Oximetry 12/18/18 12/18/18 12/18/18 11:16 11:30 11:46 Temperature Pulse Rate 59 L 61 64 Pulse Rate [ From Monitor] Respiratory 19 16 18 Rate Blood Pressure 171/88 171/88 153/68 O2 Sat by Pulse 95 95 95 Oximetry 12/18/18 12/18/18 12/18/18 12:00 12:16 12:30 Temperature 98.4 F Pulse Rate 72 67 68 Pulse Rate [ 61 From Monitor] Respiratory 18 19 17 Rate Blood Pressure 165/72 165/72 165/72 O2 Sat by Pulse 96 95 96 Oximetry General appearance: Present: no acute distress - Neck Neck: supple - Respiratory Respiratory effort: normal Extremities: no ischemia - Gastrointestinal General gastrointestinal: Present: soft, non-tender - Labs CBC & Chem 7: 12/18/18 07:06 12/18/18 07:06 Labs: Abnormal lab results 12/17/18 12/17/18 12/18/18 Range/Units 13:31 13:31 06:03 Hgb (11.8-15.2) gm/dl Hct (35.5-45.6) % Seg Neuts % (Manual) 97.0 H (40.0-70.0) % Lymphocytes % (Manual) 1.0 L (13.4-35.0) % Seg Neutrophils # Man 10.4 H (1.8-7.7) K/mm3 Lymphocytes # (Manual) 0.1 L (1.2-5.4) K/mm3 Potassium (3.6-5.0) mmol/L Chloride 107.6 H (98-107) mmol/L BUN 27 H (9-20) mg/dL Glucose 195 H (75-100) mg/dL POC Glucose 197 H (70-105) 12/18/18 12/18/18 12/18/18 Range/Units 07:06 07:06 07:59 Hgb 11.7 L (11.8-15.2) gm/dl Hct 35.2 L (35.5-45.6) % Seg Neuts % (Manual) (40.0-70.0) % Lymphocytes % (Manual) (13.4-35.0) % Seg Neutrophils # Man (1.8-7.7) K/mm3 Lymphocytes # (Manual) (1.2-5.4) K/mm3 Potassium 5.5 H D (3.6-5.0) mmol/L Chloride 107.7 H (98-107) mmol/L BUN 26 H (9-20) mg/dL Glucose 186 H (75-100) mg/dL POC Glucose 186 H (70-105) 12/18/18 Range/Units 11:48 Hgb (11.8-15.2) gm/dl Hct (35.5-45.6) % Seg Neuts % (Manual) (40.0-70.0) % Lymphocytes % (Manual) (13.4-35.0) % Seg Neutrophils # Man (1.8-7.7) K/mm3 Lymphocytes # (Manual) (1.2-5.4) K/mm3 Potassium (3.6-5.0) mmol/L Chloride (98-107) mmol/L BUN (9-20) mg/dL Glucose (75-100) mg/dL POC Glucose 152 H (70-105) Medications & Allergies - Medications Allergies/Adverse Reactions: Allergies kiwi Allergy (Mild, Verified 08/12/15 06:18) TONGUE SWELLING, EYES WATERY Home Medications: Home Medications Medication Instructions Recorded Confirmed Last Taken Type Famotidine [Pepcid] 40 mg PO DAILY 08/12/15 12/17/18 11/16/18 08:00 History Furosemide [Lasix TAB] 40 mg PO DAILY 08/12/15 12/17/18 10/17/18 08:00 History Levothyroxine [Synthroid] 137 mcg PO DAILY 08/12/15 12/17/18 12/17/18 05:00 History Terazosin (Nf) [Hytrin (Nf)] 5 mg PO QHS 08/12/15 12/17/18 12/17/18 05:00 History Apixaban [Eliquis] 5 mg PO Q12HR tablet 07/15/18 12/17/18 12/14/18 17:00 Rx Rosuvastatin (Nf) [Crestor] 5 mg PO QHS 10/01/18 12/17/18 12/16/18 19:00 History Ergocalciferol (Vitamin D2) 2,000 unit PO DAILY 12/10/18 12/17/18 12/10/18 08:00 History [Vitamin D2] Finasteride [Proscar] 5 mg PO QHS 12/10/18 12/17/18 12/17/18 05:00 History Toprol Xl 50 mg PO DAILY 12/10/18 12/17/18 12/17/18 05:00 History amLODIPine [Norvasc] 5 mg PO DAILY 12/10/18 12/17/18 12/16/18 19:00 History Active Medications: Generic Name Dose Route Start Last Admin Trade Name Freq PRN Reason Stop Dose Admin Amlodipine Besylate 5 mg 12/18/18 10:00 12/18/18 09:47 Norvasc PO 5 mg DAILY ÁNGEL Administration Atorvastatin Calcium 10 mg 12/18/18 22:00 Lipitor PO QHS ÁNGEL Cholecalciferol 2,000 unit 12/18/18 10:00 12/18/18 09:45 Vitamin D3 PO 2,000 unit DAILY ÁNGEL Administration Famotidine 40 mg 12/18/18 10:00 12/18/18 09:46 Pepcid PO 40 mg DAILY ÁNGEL Administration Finasteride 5 mg 12/18/18 22:00 Proscar PO QHS ÁNGEL Furosemide 40 mg 12/18/18 10:00 12/18/18 09:46 Lasix PO 40 mg DAILY ÁNGEL Administration Cefazolin Sodium 1 gm in 50 mls @ 100 mls/hr 12/17/18 18:00 12/18/18 10:15 Ancef/Ns 1 Gm/50 Ml IV 12/20/18 02:29 Infused Q8H ÁNGEL Infusion Protocol Dextrose/Sodium Chloride 1,000 mls @ 125 mls/hr 12/18/18 09:00 12/18/18 08:33 D5/0.45ns IV 125 mls/hr DIRECT ÁNGEL Administration Insulin Human Lispro 0 unit 12/18/18 07:30 12/18/18 11:30 Humalog SUB-Q 2 unit ACHS ÁNGEL Administration Protocol Levothyroxine Sodium 112 mcg 12/18/18 10:00 12/18/18 09:58 Synthroid PO 112 mcg DAILY@0600 ÁNGEL Administration Levothyroxine Sodium 25 mcg 12/18/18 06:00 12/18/18 07:00 Synthroid PO 25 mcg DAILY@0600 ÁNGEL Administration Metoprolol Succinate 50 mg 12/18/18 10:00 12/18/18 09:45 Toprol Xl PO 50 mg DAILY ÁNGEL Administration Morphine Sulfate 2 mg 12/17/18 08:05 Morphine IV Q4H PRN Pain, Moderate (4-6) Naloxone HCl 0.1 mg 12/17/18 08:05 Narcan 0.4 Mg/1 Ml IV Q2MIN PRN Res Rate </= 8 or 02 SAT < 92% Ondansetron HCl 4 mg 12/17/18 08:05 Zofran IV Q8H PRN N/V unrelieved by David Oxycodone/Acetaminophen 1 tab 12/17/18 08:05 12/17/18 21:06 Percocet 5/325 PO 1 tab Q6H PRN Administration Pain, Moderate (4-6) Prazosin HCl 1 mg 12/18/18 10:00 12/18/18 09:47 Minipress PO 1 mg Q12HR ÁNGEL Administration
[2018-12-18] MEDS: PERCOCET 5/325 PO PRN (17:01)
[2018-12-18] MEDS: PROSCAR PO SCH (21:24)
[2018-12-19] MEDS: ANCEF/NS 1 GM/50 ML 1 GM/50 ML BAG IV SCH ×3 (02:30→19:04)
[2018-12-19] MEDS: SYNTHROID PO SCH ×2 (05:25)
[2018-12-19] MEDS: D5/0.45NS 1,000 ML IV SCH ×2 (05:33→21:51)
[2018-12-19 09:27] LABS: Calcium 8.5 mg/dL (8.4-10.2)
[2018-12-19] MEDS: LASIX PO SCH (09:39)
[2018-12-19] MEDS: MINIPRESS PO SCH ×2 (09:39→21:41)
[2018-12-19] MEDS: VITAMIN D3 PO SCH (09:39)
[2018-12-19] MEDS: NORVASC PO SCH (09:40)
[2018-12-19] MEDS: PEPCID PO SCH (09:40)
[2018-12-19] MEDS: TOPROL XL PO SCH (09:40)
--- NOTE | 2018-12-19 12:10 | Progress Note ---
Assessment and Plan Assessment and plan: -- Ureteral cancer s/p surgery Current Visit: Yes Status: Acute Plan to address problem: s/p L ureteral resection reimplant Management per Urology --Mild drop in H/H Closely monitor h&H and trasfuse as needed --Hyperkalemia:Resolved -- HTN (hypertension) Current Visit: No Status: Chronic Plan to address problem: Cont antihypertensives --BPH (benign prostatic hyperplasia) Current Visit: Yes Status: Chronic Plan to address problem: Cont Flomax and Proscar -- Hypothyroidism (acquired) Current Visit: Yes Status: Chronic Plan to address problem: Cont synthyroid -- HLD (hyperlipidemia) Current Visit: Yes Status: Chronic Plan to address problem: Cont statins -- Vitamin D deficiency Current Visit: Yes Status: Chronic Plan to address problem: Cont vit D -- Hyperglycemia Current Visit: Yes Status: Acute Plan to address problem: Check A1c Accu-Chek sliding scale coverage and ADA diet Insulin as needed --DVT prophylaxis Current Visit: No Status: Acute Plan to address problem: On scd's and GI prophylaxis --Full code Monitor closely and adjust management as needed History Interval history: Patient seen and examined medical records reviewed Complaints of some mild pain at the site of surgery Drain in place, bloodstained urine in the [place] catheter Hospitalist Physical - Constitutional Vitals: Temp Pulse Resp BP Pulse Ox 98.0 F 85 20 177/77 93 12/19/18 07:12 12/19/18 07:12 12/19/18 07:12 12/19/18 07:12 12/19/18 07:12 General appearance: Present: no acute distress, well-nourished, obese - EENT Eyes: Present: PERRL, EOM intact - Neck Neck: Present: supple, normal ROM - Respiratory Respiratory effort: normal Respiratory: bilateral: diminished, negative: rales, rhonchi, wheezing - Cardiovascular Rhythm: regular Heart Sounds: Present: S1 & S2 - Extremities Extremities: no ischemia, No edema - Abdominal General gastrointestinal: soft, non-tender, non-distended, normal bowel sounds, other ( drain in place, bloodstained) - Integumentary Integumentary: Present: clear, warm - Psychiatric Psychiatric: appropriate mood/affect, cooperative - Neurologic Neurologic: CNII-XII intact, moves all extremities Results - Labs CBC & Chem 7: 12/18/18 07:06 12/19/18 07:26 Labs: Laboratory Last Values WBC 9.5 K/mm3 (4.5-11.0) 12/18/18 07:06 RBC 4.00 M/mm3 (3.65-5.03) 12/18/18 07:06 Hgb 11.7 gm/dl (11.8-15.2) L 12/18/18 07:06 Hct 35.2 % (35.5-45.6) L 12/18/18 07:06 MCV 88 fl (84-94) 12/18/18 07:06 MCH 29 pg (28-32) 12/18/18 07:06 MCHC 33 % (32-34) 12/18/18 07:06 RDW 14.1 % (13.2-15.2) 12/18/18 07:06 Plt Count 157 K/mm3 (140-440) 12/18/18 07:06 Lymph % (Auto) 20.7 % (13.4-35.0) 12/17/18 06:25 Imperial % (Auto) 6.6 % (0.0-7.3) 12/17/18 06:25 Eos % (Auto) 1.9 % (0.0-4.3) 12/17/18 06:25 Baso % (Auto) 0.5 % (0.0-1.8) 12/17/18 06:25 Lymph # 1.4 K/mm3 (1.2-5.4) 12/17/18 06:25 Imperial # 0.5 K/mm3 (0.0-0.8) 12/17/18 06:25 Eos # 0.1 K/mm3 (0.0-0.4) 12/17/18 06:25 Baso # 0.0 K/mm3 (0.0-0.1) 12/17/18 06:25 Add Manual Diff Complete 12/17/18 13:31 Total Counted 100 12/17/18 13:31 Seg Neutrophils % Right Of Way Supervisor 12/17/18 13:31 Seg Neuts % (Manual) 97.0 % (40.0-70.0) H 12/17/18 13:31 0 % 12/17/18 13:31 1.0 % (13.4-35.0) L 12/17/18 13:31 Reactive Lymphs % (Man) 0 % 12/17/18 13:31 2.0 % (0.0-7.3) 12/17/18 13:31 0 % (0.0-4.3) 12/17/18 13:31 0 % (0.0-1.8) 12/17/18 13:31 0 % 12/17/18 13:31 0 % 12/17/18 13:31 0 % 12/17/18 13:31 0 % 12/17/18 13:31 Nucleated RBC % Not Reportable 12/17/18 13:31 Seg Neutrophils # 4.9 K/mm3 (1.8-7.7) 12/17/18 06:25 Seg Neutrophils # Man 10.4 K/mm3 (1.8-7.7) H 12/17/18 13:31 Band Neutrophils # 0.0 K/mm3 12/17/18 13:31 0.1 K/mm3 (1.2-5.4) L 12/17/18 13:31 Abs React Lymphs (Man) 0.0 K/mm3 12/17/18 13:31 0.2 K/mm3 (0.0-0.8) 12/17/18 13:31 0.0 K/mm3 (0.0-0.4) 12/17/18 13:31 0.0 K/mm3 (0.0-0.1) 12/17/18 13:31 0.0 K/mm3 12/17/18 13:31 0.0 K/mm3 12/17/18 13:31 0.0 K/mm3 12/17/18 13:31 Blast Cells # 0.0 K/mm3 12/17/18 13:31 WBC Morphology Not Reportable 12/17/18 13:31 Hypersegmented Neuts Not Reportable 12/17/18 13:31 Hyposegmented Neuts Not Reportable 12/17/18 13:31 Hypogranular Neuts Not Reportable 12/17/18 13:31 Not Reportable 12/17/18 13:31 Not Reportable 12/17/18 13:31 Not Reportable 12/17/18 13:31 Not Reportable 12/17/18 13:31 Not Reportable 12/17/18 13:31 Not Reportable 12/17/18 13:31 Consistent w auto 12/17/18 13:31 Not Reportable 12/17/18 13:31 Plt Clumps, EDTA Not Reportable 12/17/18 13:31 Not Reportable 12/17/18 13:31 Not Reportable 12/17/18 13:31 Not Reportable 12/17/18 13:31 Plt Morphology Comment Not Reportable 12/17/18 13:31 RBC Morphology Normal 12/17/18 13:31 Dimorphic RBCs Not Reportable 12/17/18 13:31 Not Reportable 12/17/18 13:31 Not Reportable 12/17/18 13:31 Not Reportable 12/17/18 13:31 Not Reportable 12/17/18 13:31 Not Reportable 12/17/18 13:31 Not Reportable 12/17/18 13:31 Not Reportable 12/17/18 13:31 Not Reportable 12/17/18 13:31 Not Reportable 12/17/18 13:31 Not Reportable 12/17/18 13:31 Not Reportable 12/17/18 13:31 Not Reportable 12/17/18 13:31 Not Reportable 12/17/18 13:31 Not Reportable 12/17/18 13:31 Not Reportable 12/17/18 13:31 Not Reportable 12/17/18 13:31 Not Reportable 12/17/18 13:31 Not Reportable 12/17/18 13:31 Not Reportable 12/17/18 13:31 Acanthocytes (Spur) Not Reportable 12/17/18 13:31 Rouleaux Not Reportable 12/17/18 13:31 Not Reportable 12/17/18 13:31 Not Reportable 12/17/18 13:31 Not Reportable 12/17/18 13:31 Not Reportable 12/17/18 13:31 Hem Pathologist Commnt No 12/17/18 13:31 PT 13.2 Sec. (12.2-14.9) 12/17/18 06:25 INR 1.03 (0.87-1.13) 12/17/18 06:25 APTT 23.6 Sec. (24.2-36.6) L 12/17/18 06:25 Sodium 143 mmol/L (137-145) 12/19/18 07:26 Potassium 4.2 mmol/L (3.6-5.0) D 12/19/18 07:26 Chloride 105.6 mmol/L (98-107) 12/19/18 07:26 Carbon Dioxide 29 mmol/L (22-30) 12/19/18 07:26 13 mmol/L 12/19/18 07:26 BUN 24 mg/dL (9-20) H 12/19/18 07:26 1.4 mg/dL (0.8-1.5) 12/19/18 07:26 Estimated GFR 49 ml/min 12/19/18 07:26 17 % 12/19/18 07:26 Glucose 170 mg/dL (75-100) H 12/19/18 07:26 POC Glucose 168 (70-105) H 12/19/18 11:11 5.6 % (4-6) 12/19/18 07:26 Calcium 8.5 mg/dL (8.4-10.2) 12/19/18 07:26 0.30 mg/dL (0.1-1.2) 12/17/18 06:25 AST 12 units/L (5-40) 12/17/18 06:25 ALT 16 units/L (7-56) 12/17/18 06:25 68 units/L (35-129) 12/17/18 06:25 7.0 g/dL (6.3-8.2) 12/17/18 06:25 3.9 g/dL (3.9-5) 12/17/18 06:25 1.3 % 12/17/18 06:25 Blood Type A POSITIVE 12/17/18 06:25 Antibody Screen Negative 12/17/18 06:25 Crossmatch See Detail 12/17/18 06:25 Active Medications - Current Medications Current Medications: Generic Name Dose Route Start Last Admin Trade Name Pako PRN Reason Stop Dose Admin Amlodipine Besylate 5 mg 12/18/18 10:00 12/19/18 09:40 Norvasc PO 5 mg DAILY ÁNGEL Administration Atorvastatin Calcium 10 mg 12/18/18 22:00 12/18/18 21:24 Lipitor PO 10 mg QHS ÁNGEL Administration Cholecalciferol 2,000 unit 12/18/18 10:00 12/19/18 09:39 Vitamin D3 PO 2,000 unit DAILY ÁNGEL Administration Famotidine 40 mg 12/18/18 10:00 12/19/18 09:40 Pepcid PO 40 mg DAILY ÁNGEL Administration Finasteride 5 mg 12/18/18 22:00 12/18/18 21:24 Proscar PO 5 mg QHS ÁNGEL Administration Furosemide 40 mg 12/18/18 10:00 12/19/18 09:39 Lasix PO 40 mg DAILY ÁNGEL Administration Cefazolin Sodium 1 gm in 50 mls @ 100 mls/hr 12/17/18 18:00 12/19/18 09:38 Ancef/Ns 1 Gm/50 Ml IV 12/20/18 02:29 100 mls/hr Q8H ÁNGEL Administration Protocol Dextrose/Sodium Chloride 1,000 mls @ 125 mls/hr 12/18/18 09:00 12/19/18 05:33 D5/0.45ns IV 125 mls/hr DIRECT ÁNGEL Administration Insulin Human Lispro 0 unit 12/18/18 07:30 12/18/18 21:18 Humalog SUB-Q Not Given ACHS [facility] Protocol Levothyroxine Sodium 112 mcg 12/18/18 10:00 12/19/18 05:25 Synthroid PO 112 mcg DAILY@0600 ÁNGEL Administration Levothyroxine Sodium 25 mcg 12/18/18 06:00 12/19/18 05:25 Synthroid PO 25 mcg DAILY@0600 ÁNGEL Administration Metoprolol Succinate 50 mg 12/18/18 10:00 12/19/18 09:40 Toprol Xl PO 50 mg DAILY ÁNGEL Administration Morphine Sulfate 2 mg 12/17/18 08:05 Morphine IV Q4H PRN Pain, Moderate (4-6) Naloxone HCl 0.1 mg 12/17/18 08:05 Narcan 0.4 Mg/1 Ml IV Q2MIN PRN Res Rate </= 8 or 02 SAT < 92% Ondansetron HCl 4 mg 12/17/18 08:05 Zofran IV Q8H PRN N/V unrelieved by Reglan Oxycodone/Acetaminophen 1 tab 12/17/18 08:05 12/18/18 17:01 Percocet 5/325 PO 1 tab Q6H PRN Administration Pain, Moderate (4-6) Prazosin HCl 1 mg 12/18/18 10:00 12/19/18 09:39 Minipress PO 1 mg Q12HR ÁNGEL Administration
--- NOTE | 2018-12-19 12:44 | Progress Note ---
Assessment and Plan 78 y/o male s/p POD from left ureteral cancer removal. 1. Urology consulted [facility] so will defer blood pressure and management to them 2. Follow with [facility] for some form of dysrhythmia. Currently takes Toprol XL for that. 3. Spoke with RT about weaning oxygen as tolerated. Subjective Date of service: 12/19/18 Principal diagnosis: ureteral tumor Interval history: Successful transition out of the unit. No acute events noted overnight. RT has not assessed yet. Objective - Constitutional Vitals: Vital Signs - 12hr 12/19/18 12/19/18 05:28 07:12 Temperature 98.9 F 98.0 F Pulse Rate 80 85 Respiratory 20 20 Rate Blood Pressure 177/77 Blood Pressure 152/77 [Right] O2 Sat by Pulse 80 L 93 Oximetry - Labs CBC & Chem 7: 12/18/18 07:06 12/19/18 07:26 Labs: Abnormal lab results 12/18/18 12/18/18 12/19/18 Range/Units 16:33 21:10 07:15 BUN (9-20) mg/dL Glucose (75-100) mg/dL POC Glucose 120 H 132 H 173 H (70-105) 12/19/18 12/19/18 12/19/18 Range/Units 07:26 07:43 11:11 BUN 24 H (9-20) mg/dL Glucose 170 H (75-100) mg/dL POC Glucose 160 H 168 H (70-105) Medications & Allergies - Medications Allergies/Adverse Reactions: Allergies kiwi Allergy (Mild, Verified 08/12/15 06:18) TONGUE SWELLING, EYES WATERY Home Medications: Home Medications Medication Instructions Recorded Confirmed Last Taken Type Famotidine [Pepcid] 40 mg PO DAILY 08/12/15 12/17/18 11/16/18 08:00 History Furosemide [Lasix TAB] 40 mg PO DAILY 08/12/15 12/17/18 10/17/18 08:00 History Levothyroxine [Synthroid] 137 mcg PO DAILY 08/12/15 12/17/18 12/17/18 05:00 History Terazosin (Nf) [Hytrin (Nf)] 5 mg PO QHS 08/12/15 12/17/18 12/17/18 05:00 History Apixaban [Eliquis] 5 mg PO Q12HR tablet 07/15/18 12/17/18 12/14/18 17:00 Rx Rosuvastatin (Nf) [Crestor] 5 mg PO QHS 10/01/18 12/17/18 12/16/18 19:00 History Ergocalciferol (Vitamin D2) 2,000 unit PO DAILY 12/10/18 12/17/18 12/10/18 08:00 History [Vitamin D2] Finasteride [Proscar] 5 mg PO QHS 12/10/18 12/17/18 12/17/18 05:00 History Toprol Xl 50 mg PO DAILY 12/10/18 12/17/18 12/17/18 05:00 History amLODIPine [Norvasc] 5 mg PO DAILY 12/10/18 12/17/18 12/16/18 19:00 History Active Medications: Generic Name Dose Route Start Last Admin Trade Name Freq PRN Reason Stop Dose Admin Amlodipine Besylate 5 mg 12/18/18 10:00 12/19/18 09:40 Norvasc PO 5 mg DAILY ÁNGEL Administration Atorvastatin Calcium 10 mg 12/18/18 22:00 12/18/18 21:24 Lipitor PO 10 mg QHS ÁNGEL Administration Cholecalciferol 2,000 unit 12/18/18 10:00 12/19/18 09:39 Vitamin D3 PO 2,000 unit DAILY ÁNGEL Administration Famotidine 40 mg 12/18/18 10:00 12/19/18 09:40 Pepcid PO 40 mg DAILY ÁNGEL Administration Finasteride 5 mg 12/18/18 22:00 12/18/18 21:24 Proscar PO 5 mg QHS ÁNGEL Administration Furosemide 40 mg 12/18/18 10:00 12/19/18 09:39 Lasix PO 40 mg DAILY ÁNGEL Administration Cefazolin Sodium 1 gm in 50 mls @ 100 mls/hr 12/17/18 18:00 12/19/18 09:38 Ancef/Ns 1 Gm/50 Ml IV 12/20/18 02:29 100 mls/hr Q8H ÁNGEL Administration Protocol Dextrose/Sodium Chloride 1,000 mls @ 125 mls/hr 12/18/18 09:00 12/19/18 05:33 D5/0.45ns IV 125 mls/hr DIRECT ÁNGEL Administration Insulin Human Lispro 0 unit 12/18/18 07:30 12/18/18 21:18 Humalog SUB-Q Not Given ACHS [facility] Protocol Levothyroxine Sodium 112 mcg 12/18/18 10:00 12/19/18 05:25 Synthroid PO 112 mcg DAILY@0600 ÁNGEL Administration Levothyroxine Sodium 25 mcg 12/18/18 06:00 12/19/18 05:25 Synthroid PO 25 mcg DAILY@0600 ÁNGEL Administration Metoprolol Succinate 50 mg 12/18/18 10:00 12/19/18 09:40 Toprol Xl PO 50 mg DAILY ÁNGEL Administration Morphine Sulfate 2 mg 12/17/18 08:05 Morphine IV Q4H PRN Pain, Moderate (4-6) Naloxone HCl 0.1 mg 12/17/18 08:05 Narcan 0.4 Mg/1 Ml IV Q2MIN PRN Res Rate </= 8 or 02 SAT < 92% Ondansetron HCl 4 mg 12/17/18 08:05 Zofran IV Q8H PRN N/V unrelieved by David Oxycodone/Acetaminophen 1 tab 12/17/18 08:05 12/18/18 17:01 Percocet 5/325 PO 1 tab Q6H PRN Administration Pain, Moderate (4-6) Prazosin HCl 1 mg 12/18/18 10:00 12/19/18 09:39 Minipress PO 1 mg Q12HR ÁNGEL Administration
--- NOTE | 2018-12-19 12:52 | Progress Note ---
Assessment and Plan good u/o path noted rec oncology f/u will remove drain plan dischhsge thurs or fri [ Subjective Date of service: 12/19/18 Principal diagnosis: ureteral tumor Objective - Constitutional Vitals: Vital Signs - 12hr 12/19/18 12/19/18 12/19/18 05:28 07:12 12:44 Temperature 98.9 F 98.0 F Pulse Rate 80 85 Respiratory 20 20 Rate Blood Pressure 177/77 Blood Pressure 152/77 [Right] O2 Sat by Pulse 80 L 93 97 Oximetry General appearance: Present: no acute distress - Neck Neck: supple - Respiratory Respiratory effort: normal Extremities: no ischemia - Gastrointestinal General gastrointestinal: Present: soft, non-tender - Labs CBC & Chem 7: 12/18/18 07:06 12/19/18 07:26 Labs: Abnormal lab results 12/18/18 12/18/18 12/19/18 Range/Units 16:33 21:10 07:15 BUN (9-20) mg/dL Glucose (75-100) mg/dL POC Glucose 120 H 132 H 173 H (70-105) 12/19/18 12/19/18 12/19/18 Range/Units 07:26 07:43 11:11 BUN 24 H (9-20) mg/dL Glucose 170 H (75-100) mg/dL POC Glucose 160 H 168 H (70-105) Medications & Allergies - Medications Allergies/Adverse Reactions: Allergies kiwi Allergy (Mild, Verified 08/12/15 06:18) TONGUE SWELLING, EYES WATERY Home Medications: Home Medications Medication Instructions Recorded Confirmed Last Taken Type Famotidine [Pepcid] 40 mg PO DAILY 08/12/15 12/17/18 11/16/18 08:00 History Furosemide [Lasix TAB] 40 mg PO DAILY 08/12/15 12/17/18 10/17/18 08:00 History Levothyroxine [Synthroid] 137 mcg PO DAILY 08/12/15 12/17/18 12/17/18 05:00 History Terazosin (Nf) [Hytrin (Nf)] 5 mg PO QHS 08/12/15 12/17/18 12/17/18 05:00 History Apixaban [Eliquis] 5 mg PO Q12HR tablet 07/15/18 12/17/18 12/14/18 17:00 Rx Rosuvastatin (Nf) [Crestor] 5 mg PO QHS 10/01/18 12/17/18 12/16/18 19:00 History Ergocalciferol (Vitamin D2) 2,000 unit PO DAILY 12/10/18 12/17/18 12/10/18 08:00 History [Vitamin D2] Finasteride [Proscar] 5 mg PO QHS 12/10/18 12/17/18 12/17/18 05:00 History Toprol Xl 50 mg PO DAILY 12/10/18 12/17/18 12/17/18 05:00 History amLODIPine [Norvasc] 5 mg PO DAILY 12/10/18 12/17/18 12/16/18 19:00 History Active Medications: Generic Name Dose Route Start Last Admin Trade Name Alexiq PRN Reason Stop Dose Admin Amlodipine Besylate 5 mg 12/18/18 10:00 12/19/18 09:40 Norvasc PO 5 mg DAILY ÁNGEL Administration Atorvastatin Calcium 10 mg 12/18/18 22:00 12/18/18 21:24 Lipitor PO 10 mg QHS ÁNGEL Administration Cholecalciferol 2,000 unit 12/18/18 10:00 12/19/18 09:39 Vitamin D3 PO 2,000 unit DAILY ÁNGEL Administration Famotidine 40 mg 12/18/18 10:00 12/19/18 09:40 Pepcid PO 40 mg DAILY ÁNGEL Administration Finasteride 5 mg 12/18/18 22:00 12/18/18 21:24 Proscar PO 5 mg QHS ÁNGEL Administration Furosemide 40 mg 12/18/18 10:00 12/19/18 09:39 Lasix PO 40 mg DAILY ÁNGEL Administration Cefazolin Sodium 1 gm in 50 mls @ 100 mls/hr 12/17/18 18:00 12/19/18 09:38 Ancef/Ns 1 Gm/50 Ml IV 12/20/18 02:29 100 mls/hr Q8H ÁNGEL Administration Protocol Dextrose/Sodium Chloride 1,000 mls @ 125 mls/hr 12/18/18 09:00 12/19/18 05:33 D5/0.45ns IV 125 mls/hr DIRECT ÁNGEL Administration Insulin Human Lispro 0 unit 12/18/18 07:30 12/18/18 21:18 Humalog SUB-Q Not Given ACHS ÁNGEL Protocol Levothyroxine Sodium 112 mcg 12/18/18 10:00 12/19/18 05:25 Synthroid PO 112 mcg DAILY@0600 ÁNGEL Administration Levothyroxine Sodium 25 mcg 12/18/18 06:00 12/19/18 05:25 Synthroid PO 25 mcg DAILY@0600 ÁNGEL Administration Metoprolol Succinate 50 mg 12/18/18 10:00 12/19/18 09:40 Toprol Xl PO 50 mg DAILY ÁNGEL Administration Morphine Sulfate 2 mg 12/17/18 08:05 Morphine IV Q4H PRN Pain, Moderate (4-6) Naloxone HCl 0.1 mg 12/17/18 08:05 Narcan 0.4 Mg/1 Ml IV Q2MIN PRN Res Rate </= 8 or 02 SAT < 92% Ondansetron HCl 4 mg 12/17/18 08:05 Zofran IV Q8H PRN N/V unrelieved by Regpierce Oxycodone/Acetaminophen 1 tab 12/17/18 08:05 12/18/18 17:01 Percocet 5/325 PO 1 tab Q6H PRN Administration Pain, Moderate (4-6) Prazosin HCl 1 mg 12/18/18 10:00 12/19/18 09:39 Minipress PO 1 mg Q12HR ÁNGEL Administration
[2018-12-19] MEDS: HumaLOG SUB-Q SCH ×4 (13:23→21:44)
[2018-12-19] MEDS: PROSCAR PO SCH (21:41)
[2018-12-20] MEDS: ANCEF/NS 1 GM/50 ML 1 GM/50 ML BAG IV SCH (02:20)
[2018-12-20] MEDS: SYNTHROID PO SCH ×2 (05:01)
[2018-12-20 08:10] VITALS: BP 145/74
[2018-12-20] MEDS: HumaLOG SUB-Q SCH ×2 (08:21→11:45)
[2018-12-20] MEDS: LASIX PO SCH (09:29)
[2018-12-20] MEDS: PEPCID PO SCH (09:30)
[2018-12-20] MEDS: MINIPRESS PO SCH (09:30)
[2018-12-20] MEDS: NORVASC PO SCH (09:30)
[2018-12-20] MEDS: TOPROL XL PO SCH (09:30)
[2018-12-20] MEDS: VITAMIN D3 PO SCH (09:31)
--- NOTE | 2018-12-20 09:52 | Progress Note ---
Assessment and Plan healing well good u/o home today with erasto Morton Date of service: 12/20/18 Principal diagnosis: ureteral tumor Objective - Constitutional Vitals: Vital Signs - 12hr 12/19/18 12/19/18 12/20/18 22:00 23:45 07:18 Temperature 98.3 F 98.5 F Pulse Rate 79 75 Respiratory 20 18 Rate Respiratory 18 Rate [Lower Abdomen] Blood Pressure 132/51 165/71 [Right] O2 Sat by Pulse 93 92 Oximetry 12/20/18 08:09 Temperature 98.1 F Pulse Rate 76 Respiratory 18 Rate Respiratory Rate [Lower Abdomen] Blood Pressure 145/74 [Right] O2 Sat by Pulse 92 Oximetry General appearance: Present: no acute distress - Neck Neck: supple - Respiratory Respiratory effort: normal - Gastrointestinal General gastrointestinal: Present: soft, non-tender - Labs CBC & Chem 7: 12/18/18 07:06 12/19/18 07:26 Labs: Abnormal lab results 12/17/18 12/19/18 12/19/18 Range/Units 06:25 11:11 16:36 POC Glucose 168 H 141 H (70-105) Crossmatch See Detail 12/19/18 12/20/18 Range/Units 20:55 07:36 POC Glucose 167 H 162 H (70-105) Crossmatch Medications & Allergies - Medications Allergies/Adverse Reactions: Allergies kiwi Allergy (Mild, Verified 08/12/15 06:18) TONGUE SWELLING, EYES WATERY Home Medications: Home Medications Medication Instructions Recorded Confirmed Last Taken Type Famotidine [Pepcid] 40 mg PO DAILY 08/12/15 12/17/18 11/16/18 08:00 History Furosemide [Lasix TAB] 40 mg PO DAILY 08/12/15 12/17/18 10/17/18 08:00 History Levothyroxine [Synthroid] 137 mcg PO DAILY 08/12/15 12/17/18 12/17/18 05:00 History Terazosin (Nf) [Hytrin (Nf)] 5 mg PO QHS 08/12/15 12/17/18 12/17/18 05:00 History Apixaban [Eliquis] 5 mg PO Q12HR tablet 07/15/18 12/17/18 12/14/18 17:00 Rx Rosuvastatin (Nf) [Crestor] 5 mg PO QHS 10/01/18 12/17/18 12/16/18 19:00 History Ergocalciferol (Vitamin D2) 2,000 unit PO DAILY 12/10/18 12/17/18 12/10/18 08:00 History [Vitamin D2] Finasteride [Proscar] 5 mg PO QHS 12/10/18 12/17/18 12/17/18 05:00 History Toprol Xl 50 mg PO DAILY 12/10/18 12/17/18 12/17/18 05:00 History amLODIPine [Norvasc] 5 mg PO DAILY 12/10/18 12/17/18 12/16/18 19:00 History Active Medications: Generic Name Dose Route Start Last Admin Trade Name Alexiq PRN Reason Stop Dose Admin Amlodipine Besylate 5 mg 12/18/18 10:00 12/20/18 09:30 Norvasc PO 5 mg DAILY ÁNGEL Administration Atorvastatin Calcium 10 mg 12/18/18 22:00 12/19/18 21:40 Lipitor PO 10 mg QHS ÁNGEL Administration Cholecalciferol 2,000 unit 12/18/18 10:00 12/20/18 09:31 Vitamin D3 PO 2,000 unit DAILY ÁNGEL Administration Famotidine 40 mg 12/18/18 10:00 12/20/18 09:30 Pepcid PO 40 mg DAILY ÁNGEL Administration Finasteride 5 mg 12/18/18 22:00 12/19/18 21:41 Proscar PO 5 mg QHS ÁNGEL Administration Furosemide 40 mg 12/18/18 10:00 12/20/18 09:29 Lasix PO 40 mg DAILY ÁNGEL Administration Dextrose/Sodium Chloride 1,000 mls @ 125 mls/hr 12/18/18 09:00 12/19/18 21:51 D5/0.45ns IV 125 mls/hr DIRECT ÁNGEL Administration Insulin Human Lispro 0 unit 12/18/18 07:30 12/20/18 08:21 Humalog SUB-Q Not Given ACHS [facility] Protocol Levothyroxine Sodium 112 mcg 12/18/18 10:00 12/20/18 05:01 Synthroid PO 112 mcg DAILY@0600 ÁNGEL Administration Levothyroxine Sodium 25 mcg 12/18/18 06:00 12/20/18 05:01 Synthroid PO 25 mcg DAILY@0600 ÁNGEL Administration Metoprolol Succinate 50 mg 12/18/18 10:00 12/20/18 09:30 Toprol Xl PO 50 mg DAILY ÁNGEL Administration Morphine Sulfate 2 mg 12/17/18 08:05 Morphine IV Q4H PRN Pain, Moderate (4-6) Naloxone HCl 0.1 mg 12/17/18 08:05 Narcan 0.4 Mg/1 Ml IV Q2MIN PRN Res Rate </= 8 or 02 SAT < 92% Ondansetron HCl 4 mg 12/17/18 08:05 Zofran IV Q8H PRN N/V unrelieved by David Oxycodone/Acetaminophen 1 tab 12/17/18 08:05 12/18/18 17:01 Percocet 5/325 PO 1 tab Q6H PRN Administration Pain, Moderate (4-6) Prazosin HCl 1 mg 12/18/18 10:00 12/20/18 09:30 Minipress PO 1 mg Q12HR ÁNGEL Administration
--- NOTE | 2018-12-20 09:55 | Discharge Summary ---
Providers - Providers Date of Admission: 12/17/18 05:52 Date of discharge: 12/20/18 Attending physician: IVETT JENNINGS 12/17/18 08:05 Consult to Physician [CONS] Urgent Comment: Consulting Provider: EDOUARD AREVALO Physician Instructions: Reason For Exam: htn 12/17/18 13:31 Consult to Physician [CONS] Routine Comment: Consulting Provider: BLESSING FORD Physician Instructions: Reason For Exam: CRITICAL CARE Primary care physician: ANUPAM COLLADO Hospitalization Condition: Good Pertinent studies: post op reimplabnt Procedures: ureterl resection Hospital course: ayanna surgery well home with maurer Disposition: DC-01 TO HOME OR SELFCARE Core Measure Documentation - Palliative Care Palliative Care/ Comfort Measures: Not Applicable - Core Measures Any of the following diagnoses?: none - VTE Discharge Requirements Deep Vein Thrombosis/Pulmonary Embolism Present on Admission: No - Heart Failure Discharge Requirements ANJU/ARB for LVSD if EF <40%: Not Applicable Exam - Constitutional Vitals: Temp Pulse Resp BP Pulse Ox 98.1 F 76 18 145/74 92 12/20/18 08:09 12/20/18 08:09 12/20/18 08:09 12/20/18 08:09 12/20/18 08:09 Plan Activity: other (no lifting or straining ) Weight Bearing Status: Full Weight Bearing Diet: low fat, low cholesterol, low salt Wound: open to air Special Instructions: other (teach maurer care ) Follow up with: ANUPAM COLLADO MD [Primary Care Provider] - 7 Days IVETT JENNINGS MD [Staff Physician] - 7 Days
--- NOTE | 2018-12-20 12:05 | Progress Note ---
Assessment and Plan Assessment and plan: -- HTN (hypertension) Current Visit: No Status: Chronic Plan to address problem: Cont antihypertensives --BPH (benign prostatic hyperplasia) Current Visit: Yes Status: Chronic Plan to address problem: Cont Flomax and Proscar -- Hypothyroidism (acquired) Current Visit: Yes Status: Chronic Plan to address problem: Cont synthyroid -- Ureteral cancer s/p surgery Current Visit: Yes Status: Acute Plan to address problem: s/p L ureteral resection reimplant Management per Urology --Mild drop in H/H Closely monitor h&H and trasfuse as needed --Hyperkalemia:Resolved -- HLD (hyperlipidemia) Current Visit: Yes Status: Chronic Plan to address problem: Cont statins -- Vitamin D deficiency Current Visit: Yes Status: Chronic Plan to address problem: Cont vit D -- Hyperglycemia Current Visit: Yes Status: Acute Plan to address problem: Check A1c Accu-Chek sliding scale coverage and ADA diet Insulin as needed --DVT prophylaxis Current Visit: No Status: Acute Plan to address problem: On scd's and GI prophylaxis --Full code Patient is medically stable for discharge Patient advised to see primary care physician for his medical needs Verbalized understanding History Interval history: Patient seen and examined this morning medical record reviewed Patient inspected no new complaints Etiology plan to discharge the patient today stable Vital signs reviewed Hospitalist Physical - Constitutional Vitals: Temp Pulse Resp BP Pulse Ox 98.1 F 76 18 145/74 92 12/20/18 08:09 12/20/18 08:09 12/20/18 08:09 12/20/18 08:09 12/20/18 08:09 General appearance: Present: no acute distress, well-nourished - EENT Eyes: Present: PERRL, EOM intact - Neck Neck: Present: supple, normal ROM - Respiratory Respiratory effort: normal, labored Respiratory: bilateral: diminished, negative: rales, rhonchi, wheezing - Cardiovascular Rhythm: regular Heart Sounds: Present: S1 & S2 - Extremities Extremities: no ischemia, No edema - Abdominal General gastrointestinal: soft, non-tender, non-distended, normal bowel sounds - Integumentary Integumentary: Present: clear, warm - Psychiatric Psychiatric: appropriate mood/affect, cooperative - Neurologic Neurologic: moves all extremities Results - Labs CBC & Chem 7: 12/18/18 07:06 12/19/18 07:26 Labs: Laboratory Last Values WBC 9.5 K/mm3 (4.5-11.0) 12/18/18 07:06 RBC 4.00 M/mm3 (3.65-5.03) 12/18/18 07:06 Hgb 11.7 gm/dl (11.8-15.2) L 12/18/18 07:06 Hct 35.2 % (35.5-45.6) L 12/18/18 07:06 MCV 88 fl (84-94) 12/18/18 07:06 MCH 29 pg (28-32) 12/18/18 07:06 MCHC 33 % (32-34) 12/18/18 07:06 RDW 14.1 % (13.2-15.2) 12/18/18 07:06 Plt Count 157 K/mm3 (140-440) 12/18/18 07:06 Lymph % (Auto) 20.7 % (13.4-35.0) 12/17/18 06:25 Noble % (Auto) 6.6 % (0.0-7.3) 12/17/18 06:25 Eos % (Auto) 1.9 % (0.0-4.3) 12/17/18 06:25 Baso % (Auto) 0.5 % (0.0-1.8) 12/17/18 06:25 Lymph # 1.4 K/mm3 (1.2-5.4) 12/17/18 06:25 Noble # 0.5 K/mm3 (0.0-0.8) 12/17/18 06:25 Eos # 0.1 K/mm3 (0.0-0.4) 12/17/18 06:25 Baso # 0.0 K/mm3 (0.0-0.1) 12/17/18 06:25 Add Manual Diff Complete 12/17/18 13:31 Total Counted 100 12/17/18 13:31 Seg Neutrophils % Auto Air Conditioning Installer 12/17/18 13:31 Seg Neuts % (Manual) 97.0 % (40.0-70.0) H 12/17/18 13:31 0 % 12/17/18 13:31 1.0 % (13.4-35.0) L 12/17/18 13:31 Reactive Lymphs % (Man) 0 % 12/17/18 13:31 2.0 % (0.0-7.3) 12/17/18 13:31 0 % (0.0-4.3) 12/17/18 13:31 0 % (0.0-1.8) 12/17/18 13:31 0 % 12/17/18 13:31 0 % 12/17/18 13:31 0 % 12/17/18 13:31 0 % 12/17/18 13:31 Nucleated RBC % Not Reportable 12/17/18 13:31 Seg Neutrophils # 4.9 K/mm3 (1.8-7.7) 12/17/18 06:25 Seg Neutrophils # Man 10.4 K/mm3 (1.8-7.7) H 12/17/18 13:31 Band Neutrophils # 0.0 K/mm3 12/17/18 13:31 0.1 K/mm3 (1.2-5.4) L 12/17/18 13:31 Abs React Lymphs (Man) 0.0 K/mm3 12/17/18 13:31 0.2 K/mm3 (0.0-0.8) 12/17/18 13:31 0.0 K/mm3 (0.0-0.4) 12/17/18 13:31 0.0 K/mm3 (0.0-0.1) 12/17/18 13:31 0.0 K/mm3 12/17/18 13:31 0.0 K/mm3 12/17/18 13:31 0.0 K/mm3 12/17/18 13:31 Blast Cells # 0.0 K/mm3 12/17/18 13:31 WBC Morphology Not Reportable 12/17/18 13:31 Hypersegmented Neuts Not Reportable 12/17/18 13:31 Hyposegmented Neuts Not Reportable 12/17/18 13:31 Hypogranular Neuts Not Reportable 12/17/18 13:31 Not Reportable 12/17/18 13:31 Not Reportable 12/17/18 13:31 Not Reportable 12/17/18 13:31 Not Reportable 12/17/18 13:31 Not Reportable 12/17/18 13:31 Not Reportable 12/17/18 13:31 Consistent w auto 12/17/18 13:31 Not Reportable 12/17/18 13:31 Plt Clumps, EDTA Not Reportable 12/17/18 13:31 Not Reportable 12/17/18 13:31 Not Reportable 12/17/18 13:31 Not Reportable 12/17/18 13:31 Plt Morphology Comment Not Reportable 12/17/18 13:31 RBC Morphology Normal 12/17/18 13:31 Dimorphic RBCs Not Reportable 12/17/18 13:31 Not Reportable 12/17/18 13:31 Not Reportable 12/17/18 13:31 Not Reportable 12/17/18 13:31 Not Reportable 12/17/18 13:31 Not Reportable 12/17/18 13:31 Not Reportable 12/17/18 13:31 Not Reportable 12/17/18 13:31 Not Reportable 12/17/18 13:31 Not Reportable 12/17/18 13:31 Not Reportable 12/17/18 13:31 Not Reportable 12/17/18 13:31 Not Reportable 12/17/18 13:31 Not Reportable 12/17/18 13:31 Not Reportable 12/17/18 13:31 Not Reportable 12/17/18 13:31 Not Reportable 12/17/18 13:31 Not Reportable 12/17/18 13:31 Not Reportable 12/17/18 13:31 Not Reportable 12/17/18 13:31 Acanthocytes (Spur) Not Reportable 12/17/18 13:31 Rouleaux Not Reportable 12/17/18 13:31 Not Reportable 12/17/18 13:31 Not Reportable 12/17/18 13:31 Not Reportable 12/17/18 13:31 Not Reportable 12/17/18 13:31 Hem Pathologist Commnt No 12/17/18 13:31 PT 13.2 Sec. (12.2-14.9) 12/17/18 06:25 INR 1.03 (0.87-1.13) 12/17/18 06:25 APTT 23.6 Sec. (24.2-36.6) L 12/17/18 06:25 Sodium 143 mmol/L (137-145) 12/19/18 07:26 Potassium 4.2 mmol/L (3.6-5.0) D 12/19/18 07:26 Chloride 105.6 mmol/L (98-107) 12/19/18 07:26 Carbon Dioxide 29 mmol/L (22-30) 12/19/18 07:26 13 mmol/L 12/19/18 07:26 BUN 24 mg/dL (9-20) H 12/19/18 07:26 1.4 mg/dL (0.8-1.5) 12/19/18 07:26 Estimated GFR 49 ml/min 12/19/18 07:26 17 % 12/19/18 07:26 Glucose 170 mg/dL (75-100) H 12/19/18 07:26 POC Glucose 169 (70-105) H 12/20/18 12:07 5.6 % (4-6) 12/19/18 07:26 Calcium 8.5 mg/dL (8.4-10.2) 12/19/18 07:26 0.30 mg/dL (0.1-1.2) 12/17/18 06:25 AST 12 units/L (5-40) 12/17/18 06:25 ALT 16 units/L (7-56) 12/17/18 06:25 68 units/L (35-129) 12/17/18 06:25 7.0 g/dL (6.3-8.2) 12/17/18 06:25 3.9 g/dL (3.9-5) 12/17/18 06:25 1.3 % 12/17/18 06:25 Blood Type A POSITIVE 12/17/18 06:25 Antibody Screen Negative 12/17/18 06:25 Crossmatch See Detail 12/17/18 06:25 Active Medications - Current Medications Current Medications: Generic Name Dose Route Start Last Admin Trade Name Alexiq PRN Reason Stop Dose Admin Amlodipine Besylate 5 mg 12/18/18 10:00 12/20/18 09:30 Norvasc PO 5 mg DAILY ÁNGEL Administration Atorvastatin Calcium 10 mg 12/18/18 22:00 12/19/18 21:40 Lipitor PO 10 mg QHS ÁNGEL Administration Cholecalciferol 2,000 unit 12/18/18 10:00 12/20/18 09:31 Vitamin D3 PO 2,000 unit DAILY ÁNGEL Administration Famotidine 40 mg 12/18/18 10:00 12/20/18 09:30 Pepcid PO 40 mg DAILY ÁNGEL Administration Finasteride 5 mg 12/18/18 22:00 12/19/18 21:41 Proscar PO 5 mg QHS ÁNGEL Administration Furosemide 40 mg 12/18/18 10:00 12/20/18 09:29 Lasix PO 40 mg DAILY ÁNGEL Administration Dextrose/Sodium Chloride 1,000 mls @ 125 mls/hr 12/18/18 09:00 12/19/18 21:51 D5/0.45ns IV 125 mls/hr DIRECT ÁNGEL Administration Insulin Human Lispro 0 unit 12/18/18 07:30 12/20/18 08:21 Humalog SUB-Q Not Given ACHS [facility] Protocol Levothyroxine Sodium 112 mcg 12/18/18 10:00 12/20/18 05:01 Synthroid PO 112 mcg DAILY@0600 ÁNGEL Administration Levothyroxine Sodium 25 mcg 12/18/18 06:00 12/20/18 05:01 Synthroid PO 25 mcg DAILY@0600 ÁNGEL Administration Metoprolol Succinate 50 mg 12/18/18 10:00 12/20/18 09:30 Toprol Xl PO 50 mg DAILY ÁNGEL Administration Morphine Sulfate 2 mg 12/17/18 08:05 Morphine IV Q4H PRN Pain, Moderate (4-6) Naloxone HCl 0.1 mg 12/17/18 08:05 Narcan 0.4 Mg/1 Ml IV Q2MIN PRN Res Rate </= 8 or 02 SAT < 92% Ondansetron HCl 4 mg 12/17/18 08:05 Zofran IV Q8H PRN N/V unrelieved by Reglan Oxycodone/Acetaminophen 1 tab 12/17/18 08:05 12/18/18 17:01 Percocet 5/325 PO 1 tab Q6H PRN Administration Pain, Moderate (4-6) Prazosin HCl 1 mg 12/18/18 10:00 12/20/18 09:30 Minipress PO 1 mg Q12HR ÁNGEL Administration
== END 2018-12-20 14:35 | disposition home health service (06) | DRG 654 ==
LOC: 3A 05:52 → EDSTATUS 08:00 → CC1 13:17 → 3B-SURG 12-18 18:51
PROVIDERS: ADMIT Urology; ATTEND Urology
PROC: 0TSB0ZZ Reposition Bladder, Open Approach (ICD-10-PCS; principal; 2018-12-17)
PROC: 0TB70ZZ Excision of Left Ureter, Open Approach (ICD-10-PCS; 2018-12-17)
PROC: 0T170ZB Bypass Left Ureter to Bladder, Open Approach (ICD-10-PCS; 2018-12-17)
DX: C67.6 Malignant neoplasm of ureteric orifice (principal); R71.0 Precipitous drop in hematocrit; I82.409 Acute embolism and thrombosis of unspecified deep veins of unspecified lower extremity; I10 Essential (primary) hypertension; K21.9 Gastro-esophageal reflux disease without esophagitis; I73.9 Peripheral vascular disease, unspecified; E03.9 Hypothyroidism, unspecified; E66.9 Obesity, unspecified; N40.0 Benign prostatic hyperplasia without lower urinary tract symptoms; E78.2 Mixed hyperlipidemia; E55.9 Vitamin D deficiency, unspecified; M19.90 Unspecified osteoarthritis, unspecified site; E11.65 Type 2 diabetes mellitus with hyperglycemia; Z87.891 Personal history of nicotine dependence; Z68.30 Body mass index [BMI] 30.0-30.9, adult; Z82.49 Family history of ischemic heart disease and other diseases of the circulatory system; Z79.899 Other long term (current) drug therapy; Z86.718 Personal history of other venous thrombosis and embolism; Z79.4 Long term (current) use of insulin
CPT/HCPCS: 36415; 80048; 80053; 82962; 83036; 85007; 85025; 85027; 85610; 85730; 86850; 86900; 86901; 86920; 88112; 88305; 88307; 88331; 88341; 88342; 94760; G0378; A9270-GY; C2617; C9250; J0330; J0690; J1100; J1170; J1815; J1940; J2370; J2405; J2704; J2710; J3010; J7120; Q9968

== ENCOUNTER 2018-12-26 10:47 | Outpatient (CLI) | payer MEDICARE, OTHER ==
--- NOTE | 2018-12-26 12:49 | Fluoroscopy Report ---
FLUOROSCOPY CYSTOGRAM STATIC HISTORY: Urethral cancer FINDINGS: Informed consent was obtained. Retrograde infusion of water-soluble contrast was performed through a Tavares catheter under fluoroscopic observation. 13 fluoroscopic images were saved. 1.7 minut es of fluoroscopy time was utilized. This examination is slightly limited. The bladder could only be partially distended because the patie nt was incontinent. The bladder could be filled by approximately 25-35% before exiting through the ur ethra around the Tavares catheter. Having said that, there is no obvious extravasation of contrast from the bladder. A left ureteral stent is in position. No gross bladder mass. IMPRESSION: Slightly limited exam with poor distention of the bladder secondary to incontinence. Grossly there is no evidence for extravasation of contrast from the bladder. These findings were discussed with Dr. Lucie daly prior to terminating the exam. Signer Name: Gaurav Pittman Jr, MD Signed: 12/26/2018 12:44 PM Workstation Name: [id number]
== END 2018-12-26 10:48 | disposition home or self-care (01) ==
LOC: FLUORO 10:47
PROVIDERS: ATTEND Urology
DX: C67.7 Malignant neoplasm of urachus (principal); I12.9 Hypertensive chronic kidney disease with stage 1 through stage 4 chronic kidney disease, or unspecified chronic kidney disease; E11.22 Type 2 diabetes mellitus with diabetic chronic kidney disease; N18.9 Chronic kidney disease, unspecified; K21.9 Gastro-esophageal reflux disease without esophagitis; E03.9 Hypothyroidism, unspecified; E78.5 Hyperlipidemia, unspecified; E78.00 Pure hypercholesterolemia, unspecified; E11.51 Type 2 diabetes mellitus with diabetic peripheral angiopathy without gangrene; E66.9 Obesity, unspecified; M19.90 Unspecified osteoarthritis, unspecified site; F32.9 Major depressive disorder, single episode, unspecified; F41.9 Anxiety disorder, unspecified; Z88.8 Allergy status to other drugs, medicaments and biological substances; Z98.890 Other specified postprocedural states; Z98.49 Cataract extraction status, unspecified eye; Z86.718 Personal history of other venous thrombosis and embolism; Z87.442 Personal history of urinary calculi; Z79.899 Other long term (current) drug therapy; Z87.891 Personal history of nicotine dependence; Z86.2 Personal history of diseases of the blood and blood-forming organs and certain disorders involving the immune mechanism
CPT/HCPCS: 51600; 74430; Q9958

== ENCOUNTER 2019-01-17 10:35 | Outpatient (CLI) | payer MEDICARE, OTHER ==
--- NOTE | 2019-01-17 15:46 | PET Report ---
PET/CT Scan01/17/2019 Indication: C65.2, I25.10, N18.9 Staging Technique: 11.54 mCi of F18-FDG is administered via the left antecubital site at 1138 hours. Imaging is perfor med at 1242 hours.. Imaging is performed from the skull base to the proximal thighs. CT imaging is obtained for attenuation correction and anatomic localization. Comparison: None Available Findings: There is pathologic uptake noted in retroperitoneal nodes and left periaortic location in the aortoc aval location. An index aortocaval node measures 13 mm in diameter and 7.2 SUV. An index left para-ao rtic node measures 7.2 SUV as well. There is an enlarged node in the left pelvis which measures 2.9 x 2 cm and 10.3 SUV. There is some uptake noted in the midline in the anterior pelvis appears to be operative site. Septat e measures 8.8 SUV may be postoperative change. There is a focus of uptake along the anterior left as pect of the urinary bladder measures 8.4 SUV. I suspect this is uptake related to post surgical hagen e and site of reimplantation of the ureter. There is parenchymal opacity in the left upper lobe and left apex which is irregular in. Air bronchog jesús this measures 5.9 SUV. While this could be neoplastic this has more of an appearance of an airsp raul process. There is a small subcentimeter node in the right hilum which measures 5.4 SUV. There is a small node along the posterior aspect of the parotid gland on the right is measures less t pruitt a centimeter and measures 5.6 SUV. On review of the accompanying CT, there is soft tissue density structure in the inferior aspect of th e left maxillary sinus representing either because of thickening or mucous retention cyst. There is a 4 mm nodule in the left lung base, series 2 image 135. There are low-density lesions in the liver which do not show abnormal uptake. These are likely cysts. Impression: Hypermetabolic adenopathy in the pelvis and in the retroperitoneum is characteristic of metastatic di sease. Uptake along the anterior left aspect of the bladder is likely postoperative as is the uptake in the anterior abdominal wall in the pelvis. There is hypermetabolic parenchymal disease in the left lung apex has not appearance of airspace dise ase and is most suspicious for pneumonia or pneumonitis. This will need to be followed. 4 mm nodule in the left lung base is not hypermetabolic but it is very small this will need to be fol lowed as well. Hypermetabolic node in the right hilum suspicious but not definitive for metastatic disease. Small subcentimeter nodule along the posterior aspect of the right parotid is hypermetabolic. This is also not specific. Signer Name: Omar Mckeon MD Signed: 01/17/2019 3:41 PM Workstation Name: [id number]
== END 2019-01-17 10:36 | disposition home or self-care (01) ==
LOC: PET 10:35
PROVIDERS: ATTEND Internal Medicine Hematology & Oncology
DX: C65.2 Malignant neoplasm of left renal pelvis (principal); I25.10 Atherosclerotic heart disease of native coronary artery without angina pectoris; I12.9 Hypertensive chronic kidney disease with stage 1 through stage 4 chronic kidney disease, or unspecified chronic kidney disease; N18.9 Chronic kidney disease, unspecified; E11.22 Type 2 diabetes mellitus with diabetic chronic kidney disease; E78.00 Pure hypercholesterolemia, unspecified
CPT/HCPCS: 78815; 82962; A9552

== ENCOUNTER 2019-05-30 10:24 | Outpatient (CLI) | payer MEDICARE, OTHER ==
--- NOTE | 2019-05-30 14:57 | PET Report ---
PET/CT HISTORY: C65.2. Restaging of bladder cancer TECHNIQUE: The patient's fasting blood glucose was 123. The patient weighed 250 lbs. The patient w as injected with 11.3 mCi of FDG in the left antecubital fossa at 1127 hours and imaging was started at 1220 hours. The patient was imaged from the skull base to the thighs. All CT scans at this locati on are performed using CT dose reduction for ALARA by means of automated exposure control. Images wer e reviewed on a workstation. COMPARISON: 01/17/2019 FINDINGS: Previously described mildly enlarged and hypermetabolic retroperitoneal and pelvic lymph nodes have n early resolved since the previous exam. Hypermetabolic activity throughout the retroperitoneum has al so resolved. A solitary left internal iliac lymph node has decreased in size from 2.7 x 2.1 cm to 1.8 x 1.3 cm. Max SUV has decreased from 10.3 to 4.7. No new areas of hypermetabolic activity have developed. Previously described focal airspace opacity i n the left upper lobe is stable in size and configuration. Max SUV is relatively stable measuring 5.7 . Heart and mediastinal structures remain unremarkable. No new pulmonary lesion. The abdominal and pelvic viscera are unchanged with no evidence of new disease. No suspicious bony lesions have developed. IMPRESSION: A positive response to therapy is demonstrated since the previous exam. Hypermetabolic retroperitone al and pelvic lymph nodes have nearly resolved. There is a solitary hypermetabolic left internal sita c lymph node remaining as outlined above. No new areas of disease are appreciated. Focal area of uptake in the left upper lobe is unchanged and presumably represents inflammation. Signer Name: Gaurav Pittman Jr, MD Signed: 05/30/2019 2:52 PM Workstation Name: [id number]
== END 2019-05-30 10:25 | disposition home or self-care (01) ==
LOC: PET 10:24
PROVIDERS: ATTEND Internal Medicine Hematology & Oncology
DX: C65.2 Malignant neoplasm of left renal pelvis (principal); I25.10 Atherosclerotic heart disease of native coronary artery without angina pectoris; N18.9 Chronic kidney disease, unspecified; E53.9 Vitamin B deficiency, unspecified; E53.8 Deficiency of other specified B group vitamins; I89.8 Other specified noninfective disorders of lymphatic vessels and lymph nodes
CPT/HCPCS: 78815; 82962; A9552

== ENCOUNTER 2019-07-03 11:25 | Inpatient (IN) | payer MEDICARE, OTHER ==
[2019-07-03] MEDS ORDERED: SODIUM CHLORIDE 0.9% 500 ML 500 ML IV ONE (11:33)
[2019-07-03] MEDS ORDERED: SODIUM CHLORIDE 0.9% IRR 500 ML BOTTLE IR ONE (11:52)
[2019-07-03] MEDS ORDERED: NEOMY 3.5 MG/BACIT 400 UNITS/POLY B 5000 UNITS/GM OINT PACKET TP ONE (11:52)
[2019-07-03] MEDS ORDERED: LIDOCAINE (1%) 10 MG/1 ML VIAL 20 ML MDV INFILTRATI ONE (11:52)
--- NOTE | 2019-07-03 11:54 | Emergency Department Report ---
ED General Adult HPI - General Chief complaint: Syncope Stated complaint: FALL INJURY/HEAD PAIN Time Seen by Provider: 07/03/19 11:50 Source: patient, family Mode of arrival: Wheelchair Limitations: No Limitations - History of Present Illness Initial comments: Mr Young is a very pleasant 79-year-old male who comes to the emergency room after falling outside of his doctor's office this morning. He states that he got dizzy and fell hitting his head on the concrete. Denies LOC. He denies vomiting after the incident. Patient has a laceration to his right temporal area. Patient is alert and oriented to person and place. He could not tell me the year on arrival. Patient is currently being treated for bladder cancer by Drs. guzman. He has had nausea and vomiting for the last 5 days: I am unclear if this is related to cancer treatment or just incidental nausea and vomiting. Patient is followed by Dr. Lopez for his acute on chronic kidney disease. is extremely anxious and reports that her has been vomiting for the last 5 days. He was given promethazine by his cancer doctor. He took a promethazine this morning prior to falling. In triage patient's heart rate was noted to be 140. Blood pressure 100/69. Patient afebrile. Patient was leaving doctors insults office at the time of his fall. Drs. guzman did give him an antibiotic to take. The cannot tell me the name of the antibiotic and she does not have it with her. 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 Patient denies a history of CVA or acute coronary syndrome. He denies history of PE. Patient and are unable to give me a list of his home medications at the current time. Patient is and they have no children. is tearful because she has no support and no family here. She is extremely worried about her . -: Sudden Location: head Improves with: none Worsens with: none Associated Symptoms: confusion, nausea/vomiting, weakness Treatments Prior to Arrival: none - Related Data Home Medications Medication Instructions Recorded Confirmed Last Taken Famotidine [Pepcid] 40 mg PO DAILY 08/12/15 12/17/18 11/16/18 08:00 40 mg Furosemide [Lasix TAB] 40 mg PO DAILY 08/12/15 12/17/18 10/17/18 08:00 40 mg Levothyroxine [Synthroid] 137 mcg PO DAILY 08/12/15 12/17/18 12/17/18 05:00 137 mcg Terazosin (Nf) [Hytrin (Nf)] 5 mg PO QHS 08/12/15 12/17/18 12/17/18 05:00 5 mg Rosuvastatin (Nf) [Crestor] 5 mg PO QHS 10/01/18 12/17/18 12/16/18 19:00 Ergocalciferol (Vitamin D2) 2,000 unit PO DAILY 12/10/18 12/17/18 12/10/18 08:00 [Vitamin D2] Finasteride [Proscar] 5 mg PO QHS 12/10/18 12/17/18 12/17/18 05:00 Toprol Xl 50 mg PO DAILY 12/10/18 12/17/18 12/17/18 05:00 amLODIPine [Norvasc] 5 mg PO DAILY 12/10/18 12/17/18 12/16/18 19:00 Previous Rx's Medication Instructions Recorded Last Taken Type Apixaban [Eliquis] 5 mg PO Q12HR tablet 07/15/18 12/14/18 17:00 Rx 5 mg Allergies Allergy/AdvReac Type Severity Reaction Status Date / Time kiwi Allergy Mild TONGUE Verified 08/12/15 06:18 SWELLING, EYES WATERY ED Review of Systems ROS: Stated complaint: FALL INJURY/HEAD PAIN Other details as noted in HPI Comment: All other systems reviewed and negative ED Past Medical Hx - Past Medical History Previous Medical History?: Yes Hx Hypertension: Yes (1997) Hx CVA: No Hx Heart Attack/AMI: No Hx Congestive Heart Failure: No Hx Diabetes: Yes (NO MEDS) Hx Deep Vein Thrombosis: Yes (RIGHT LEG- RECURRENT) Hx Pulmonary Embolism: No Hx GERD: Yes Hx Liver Disease: No Hx Renal Disease: Yes Hx of Cancer: Yes Hx Sickle Cell Disease: No Hx Arthritis: Yes Hx Headaches / Migraines: No Hx Seizures: No Hx Kidney Stones: Yes Hx Psychiatric Treatment: No Hx Asthma: No Hx COPD: No Hx Tuberculosis: No Hx Dementia: No Hx HIV: No - Surgical History Past Surgical History?: Yes Additional Surgical History: thyroid removed - Family History Family history: no significant - Social History Smoking Status: Former Smoker Substance Use Type: None - Medications Home Medications: Home Medications Medication Instructions Recorded Confirmed Last Taken Type Famotidine [Pepcid] 40 mg PO DAILY 08/12/15 12/17/18 11/16/18 08:00 History 40 mg Furosemide [Lasix TAB] 40 mg PO DAILY 08/12/15 12/17/18 10/17/18 08:00 History 40 mg Levothyroxine [Synthroid] 137 mcg PO DAILY 08/12/15 12/17/18 12/17/18 05:00 History 137 mcg Terazosin (Nf) [Hytrin (Nf)] 5 mg PO QHS 08/12/15 12/17/18 12/17/18 05:00 History 5 mg Apixaban [Eliquis] 5 mg PO Q12HR tablet 07/15/18 12/17/18 12/14/18 17:00 Rx 5 mg Rosuvastatin (Nf) [Crestor] 5 mg PO QHS 10/01/18 12/17/18 12/16/18 19:00 History Ergocalciferol (Vitamin D2) 2,000 unit PO DAILY 12/10/18 12/17/18 12/10/18 08:00 History [Vitamin D2] Finasteride [Proscar] 5 mg PO QHS 12/10/18 12/17/18 12/17/18 05:00 History Toprol Xl 50 mg PO DAILY 12/10/18 12/17/18 12/17/18 05:00 History amLODIPine [Norvasc] 5 mg PO DAILY 12/10/18 12/17/18 12/16/18 19:00 History ED Physical Exam - General Limitations: No Limitations General appearance: alert, in no apparent distress - Eye Eye exam: Present: normal appearance, PERRL, EOMI - ENT ENT exam: Present: mucous membranes dry - Neck Neck exam: Present: normal inspection - Respiratory Respiratory exam: Present: normal lung sounds bilaterally. Absent: respiratory distress - Cardiovascular Cardiovascular Exam: Present: regular rate, normal rhythm, tachycardia. Absent: systolic murmur, diastolic murmur, rubs, gallop - GI/Abdominal GI/Abdominal exam: Present: soft, normal bowel sounds - Rectal Rectal exam: Present: deferred - Extremities Exam Extremities exam: Present: normal inspection - Back Exam Back exam: Present: normal inspection - Neurological Exam Neurological exam: Present: alert, CN II-XII intact - Psychiatric Psychiatric exam: Present: flat affect - Skin Skin exam: Present: warm, dry, intact, pallor. Absent: rash ED Course Vital Signs 07/03/19 11:28 Temperature 97.2 F L Pulse Rate 141 H Respiratory 18 Rate Blood Pressure 100/69 O2 Sat by Pulse 94 Oximetry - Reevaluation(s) Reevaluation #1: 07/03/19 14:00 At this time patient has been unable to void. Patient does state that he has had some difficulty voiding since his cystoscopy last week Due to patient's medical condition and kidney dysfunction he has been given 500 mL's of normal saline. The nurse has been asked not to give the additional volume associated with the sepsis protocol. - Laceration /Wound Repair l temp area Wound Location: head Wound Length (cm): 3 Wound's Depth, Shape: superficial Wound Explored: no foreign body removed Irrigated w/ Saline (ccs): 100 Betadine Prep?: Yes Anesthesia: 1% Lidocaine Volume Anesthetic (ccs): 2 Wound Debrided: minimal Wound Repaired With: sutures Suture Size/Type: 3:0 Number of Sutures: 3 Layer Closure?: No Sterile Dressing Applied?: Yes Progress: tolerated well ED Medical Decision Making - Lab Data Result diagrams: 07/03/19 11:43 07/03/19 11:43 - EKG Data -: EKG Interpreted by Sd EKG shows normal: sinus rhythm Rate: tachycardia - EKG Data Interpretation: no acute changes - Radiology Data Radiology results: report reviewed, image reviewed - Medical Decision Making Labs 07/03/19 07/03/19 07/03/19 11:43 11:43 11:43 WBC 14.0 H RBC 4.65 Hgb 12.7 Hct 38.9 MCV 84 MCH 27 L MCHC 33 RDW 14.1 Plt Count 277 Lymph % (Auto) 7.8 L Cass % (Auto) 9.9 H Eos % (Auto) 0.1 Baso % (Auto) 0.1 Lymph # 1.1 L Cass # 1.4 H Eos # 0.0 Baso # 0.0 Seg Neutrophils % 82.1 H Seg Neutrophils # 11.5 H PT 14.9 INR 1.15 H APTT 23.7 L VBG pH Sodium 139 Potassium 3.3 L Chloride 84.3 L Carbon Dioxide 29 Anion Gap 29 BUN 75 H Creatinine 4.0 H Estimated GFR 15 BUN/Creatinine Ratio 19 Glucose 206 H Lactic Acid Calcium 9.6 Total Bilirubin 0.80 AST 22 ALT 27 Alkaline Phosphatase 176 H Troponin T Total Protein 6.5 Albumin 3.5 L Albumin/Globulin Ratio 1.2 07/03/19 07/03/19 07/03/19 11:43 11:43 12:34 WBC RBC Hgb Hct MCV MCH MCHC RDW Plt Count Lymph % (Auto) Cass % (Auto) Eos % (Auto) Baso % (Auto) Lymph # Cass # Eos # Baso # Seg Neutrophils % Seg Neutrophils # PT INR APTT VBG pH 7.513 H Sodium Potassium Chloride Carbon Dioxide Anion Gap BUN Creatinine Estimated GFR BUN/Creatinine Ratio Glucose Lactic Acid 6.40 H* Calcium Total Bilirubin AST ALT Alkaline Phosphatase Troponin T 0.089 H Total Protein Albumin Albumin/Globulin Ratio 07/03/19 12:34 WBC RBC Hgb Hct MCV MCH MCHC RDW Plt Count Lymph % (Auto) Cass % (Auto) Eos % (Auto) Baso % (Auto) Lymph # Cass # Eos # Baso # Seg Neutrophils % Seg Neutrophils # PT INR APTT VBG pH Sodium Potassium Chloride Carbon Dioxide Anion Gap BUN Creatinine Estimated GFR BUN/Creatinine Ratio Glucose Lactic Acid 3.90 H* Calcium Total Bilirubin AST ALT Alkaline Phosphatase Troponin T Total Protein Albumin Albumin/Globulin Ratio Vital Signs 07/03/19 11:28 Temperature 97.2 F L Pulse Rate 141 H Respiratory 18 Rate Blood Pressure 100/69 O2 Sat by Pulse 94 Oximetry labs noted WBC and lactic acid high per family pt told he had uti to this time we are not able to get urine- may need cath but pt reports last week they had trouble passing his prostate during cysto. labs noted trop elevated in setting of inc Cr no cp or sob blood cultures pending xray chest noted CT head/cervical spine noted lac repaired 500 ml NS and rocpehin IV in ER. HR trended down; bp normotensive with fluids; no n/v in ER pt and updated on plan of care Staffed with Dr Shaw Discussed with Dr Cochran Pt to be admitted for additional work up. Social service consult for assistance with home care will be helpful for . - Differential Diagnosis ro subdural/epidural/cspine injury; ro sepsis Critical care attestation.: If time is entered above; I have spent that time in minutes in the direct care of this critically ill patient, excluding procedure time. ED Disposition Clinical Impression: Leukocytosis, Head injury, Nausea and vomiting, Bladder cancer Disposition: OP ADMIT IP TO THIS HOSP Is pt being admited?: Yes Does the pt Need Aspirin: No Condition: Stable Time of Disposition: 12:00
[2019-07-03 12:06] LABS: Basophils % (Auto) 0.1 % (0.0-1.8); Eosinophils % (Auto) 0.1 % (0.0-4.3); Hematocrit 38.9 % (35.5-45.6); Hemoglobin 12.7 gm/dl (11.8-15.2); Lymphocytes # (Auto) 1.1 K/mm3 (1.2-5.4); Lymphocytes % (Auto) 7.8 % (13.4-35.0); Mean Corpuscular HGB Conc 33 % (32-34); Mean Corpuscular Volume 84 fl (84-94); Monocytes # (Auto) 1.4 K/mm3 (0.0-0.8); Monocytes % (Auto) 9.9 % (0.0-7.3); Platelet Count 277 K/mm3 (140-440); Red Blood Count 4.65 M/mm3 (3.65-5.03); Red Cell Distribution Width 14.1 % (13.2-15.2)
[2019-07-03 12:08] LABS: INR 1.15 (0.87-1.13); Partial Thromboplastin Time 23.7 Sec. (24.2-36.6)
[2019-07-03 12:22] LABS: Albumin 3.5 g/dL (3.9-5); Calcium 9.6 mg/dL (8.4-10.2)
[2019-07-03] MEDS ORDERED: SODIUM CHLORIDE 0.9% 1000 ML IV SOLN IV ONE (12:31)
--- NOTE | 2019-07-03 13:00 | Cat Scan Report ---
NONENHANCED CT SCAN OF THE HEAD: INDICATION / CLINICAL INFORMATION: 79 years Male; fall w head lac r temporal. TECHNIQUE: Routine CT head without contrast. All CT scans at this location are performed using CT dos e reduction for ALARA by means of automated exposure control. COMPARISON: None. FINDINGS: BRAIN / INTRACRANIAL CONTENTS: No intracranial sequela from the trauma; no scalp hematoma; no air-flu id level in the visualized portions of the paranasal sinuses. No acute hemorrhage, mass effect, midline shift, hydrocephalus, or acute, large territorial infarct. Cortical involution is seen. No significant white matter abnormality. CRANIOCERVICAL JUNCTION: No significant abnormality. ORBITS: No significant abnormality of visualized orbits. SINUSES / MASTOIDS: Retention cyst is seen in the left maxillary sinus. No air-fluid level is seen. ADDITIONAL FINDINGS: None. IMPRESSION: No intracranial sequela from the trauma. Signer Name: Carmenza Shannon MD Signed: 07/03/2019 12:55 PM Workstation Name: [id number]
--- NOTE | 2019-07-03 13:12 | Cat Scan Report ---
CT CERVICAL SPINE WITHOUT CONTRAST INDICATION: fall w head lac r temporal. TECHNIQUE: Axial imaging performed through the cervical spine without the use of contrast. Sagittal and coronal reconstructed images were also reviewed. All CT scans at this location are performed us ing CT dose reduction for ALARA by means of automated exposure control. COMPARISON: None FINDINGS: Alignment: Spinal alignment is normal. Bones: There is no acute osseous abnormality. Moderate multilevel discogenic DJD is present. This is most significant at C4-5 with there is vacuum disc phenomenon. Soft tissues: No acute or significant incidental soft tissue abnormality. IMPRESSION: 1. No acute abnormality. 2. Moderate multilevel degenerative disc disease. Signer Name: Aroldo Herrera MD Signed: 07/03/2019 1:08 PM Workstation Name: [id number]
--- NOTE | 2019-07-03 13:18 | XRay Report ---
CHEST 1 VIEW INDICATION / CLINICAL INFORMATION: possible Sepsis. COMPARISON: FINDINGS: SUPPORT DEVICES: Port-A-Cath catheter tip projects at the level of the junction of the superior vena cava and right atrium HEART / MEDIASTINUM: No significant abnormality. LUNGS / PLEURA: There is blunting of the left costophrenic angle characteristic of a small amount of pleural fluid or pleural thickening.. No pneumothorax. ADDITIONAL FINDINGS: No significant additional findings. IMPRESSION: 1. Small amount of pleural fluid or pleural thickening in the left costophrenic angle. Signer Name: Omar Mckeon MD Signed: 07/03/2019 1:13 PM Workstation Name: [id number]
[2019-07-03] MEDS ORDERED: cefTRIAXone/NS 2 GM/100 ML 2 GM/100 ML BAG IV ONE (14:44)
[2019-07-03] MEDS: cefTRIAXone/NS 2 GM/100 ML 2 GM/100 ML BAG IV SCH (14:45)
[2019-07-03 15:59] LABS: Bilirubin,Urine NEG (Negative); Blood,Urine SM (Negative); Color,Urine Yellow (Yellow); Mucus,Urine FEW /HPF; Urobilinogen,Urine < 2.0 mg/dL (<2.0)
[2019-07-03 16:03] LABS: Chol/HDL Ratio 3.71 %
--- NOTE | 2019-07-03 22:29 | History and Physical Report ---
History of Present Illness Date of examination: 07/03/19 Date of admission: 07/03/19 13:32 Chief complaint: Fall/Near Snciope couple of hours ago History of present illness: Mr Young is a very pleasant 79-year-old male who comes to the emergency room after falling outside of his doctor's office this morning. He states that he got dizzy and fell hitting his head on the concrete. Denies LOC. He denies vomiting after the incident. Patient has a laceration to his right temporal area. Patient is alert and oriented to person and place. He could not tell the year on arrival.Patient is currently being treated for bladder cancer by Dr Faulkner.He has had nausea and vomiting for the last 5 days: I am unclear if this is related to cancer treatment or just incidental nausea and vomiting. Patient is followed by Dr. Lopez for his acute on chronic kidney disease. 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 Patient denies a history of CVA or acute coronary syndrome. He denies history of PE. Past Medical History Previous Medical History?: Yes Hx Hypertension: Yes (1997) Hx Diabetes: Yes (NO MEDS) Hx Deep Vein Thrombosis: Yes (RIGHT LEG- RECURRENT Hx GERD: Yes Hx Renal Disease: Yes Hx of Cancer: Yes Hx Arthritis: Yes Hx Kidney Stones: Yes -Surgical History Past Surgical History?: Yes Additional Surgical History: thyroid removed Family History Family history: no significant -Social History Smoking Status: Former Smoker Substance Use Type: None - Medications Home Medications: Home Medications Medication Instructions Recorded Confirmed Last Taken Type Famotidine [Pepcid] 40 mg PO DAILY 08/12/15 12/17/18 11/16/18 08:00 History 40 mg Furosemide [Lasix TAB] 40 mg PO DAILY 08/12/15 12/17/18 10/17/18 08:00 History 40 mg Levothyroxine [Synthroid] 137 mcg PO DAILY 08/12/15 12/17/18 12/17/18 05:00 History 137 mcg Terazosin (Nf) [Hytrin (Nf)] 5 mg PO QHS 08/12/15 12/17/18 12/17/18 05:00 History 5 mg Apixaban [Eliquis] 5 mg PO Q12HR tablet 07/15/18 12/17/18 12/14/18 17:00 Rx 5 mg Rosuvastatin (Nf) [Crestor] 5 mg PO QHS 10/01/18 12/17/18 12/16/18 19:00 History Ergocalciferol (Vitamin D2) 2,000 unit PO DAILY 12/10/18 12/17/18 12/10/18 08:00 History [Vitamin D2] Finasteride [Proscar] 5 mg PO QHS 12/10/18 12/17/18 12/17/18 05:00 History Toprol Xl 50 mg PO DAILY 12/10/18 12/17/18 12/17/18 05:00 History amLODIPine [Norvasc] 5 mg PO DAILY 12/10/18 12/17/18 12/16/18 19:00 History Review of Systems ROS: Stated complaint: FALL INJURY/HEAD PAIN Other details as noted in HPI Comment: All other systems reviewed and negative Medications and Allergies Allergies Allergy/AdvReac Type Severity Reaction Status Date / Time kiwi Allergy Mild TONGUE Verified 08/12/15 06:18 SWELLING, EYES WATERY Home Medications Medication Instructions Recorded Confirmed Last Taken Type Famotidine [Pepcid] 40 mg PO DAILY 08/12/15 07/03/19 11/16/18 08:00 History 40 mg Furosemide [Lasix TAB] 40 mg PO DAILY 08/12/15 07/03/19 10/17/18 08:00 History 40 mg Levothyroxine [Synthroid] 137 mcg PO DAILY 08/12/15 07/03/19 12/17/18 05:00 History 137 mcg Terazosin (Nf) [Hytrin (Nf)] 5 mg PO QHS 08/12/15 07/03/19 12/17/18 05:00 History 5 mg Rosuvastatin (Nf) [Crestor] 5 mg PO QHS 10/01/18 07/03/19 12/16/18 19:00 History Ergocalciferol (Vitamin D2) 2,000 unit PO DAILY 12/10/18 07/03/19 12/10/18 08:00 History [Vitamin D2] Finasteride [Proscar] 5 mg PO QHS 12/10/18 07/03/19 12/17/18 05:00 History Toprol Xl 50 mg PO DAILY 12/10/18 07/03/19 12/17/18 05:00 History amLODIPine [Norvasc] 5 mg PO DAILY 12/10/18 07/03/19 12/16/18 19:00 History Apixaban [Eliquis] 1 tab PO BID 07/03/19 07/03/19 Unknown History Active Meds: Active Medications Ceftriaxone Sodium (Rocephin/Ns 2 Gm/100 Ml) 2 gm in 100 mls @ 200 mls/hr IV Q24HR ÁNGEL; Protocol Last Infusion: 07/03/19 15:15 Dose: Infused Documented by: Exam - Constitutional Vitals: Temp Pulse Resp BP Pulse Ox 98.0 F 85 20 138/54 95 07/03/19 19:39 07/03/19 19:39 07/03/19 19:39 07/03/19 19:39 07/03/19 19:39 General appearance: Present: no acute distress, well-nourished - EENT Eyes: Present: PERRL ENT: hearing intact, clear oral mucosa, other (Rt Temporal lac 2 cm with sutures) - Neck Neck: Present: supple, normal ROM - Respiratory Respiratory effort: normal Respiratory: bilateral: CTA - Cardiovascular Heart rate: 78 Rhythm: regular Heart Sounds: Present: S1 & S2. Absent: rub, click - Extremities Extremities: no ischemia, pulses intact, pulses symmetrical, No edema Peripheral Pulses: within normal limits - Abdominal General gastrointestinal: Present: soft, non-tender, non-distended, normal bowel sounds Male genitourinary: Present: normal - Integumentary Integumentary: Present: clear, warm, dry - Musculoskeletal Musculoskeletal: strength equal bilaterally, generalized weakness - Psychiatric Psychiatric: appropriate mood/affect, intact judgment & insight - Neurologic Neurologic: CNII-XII intact, moves all extremities - Allied Health Allied health notes reviewed: nursing, case management Results - Labs CBC & Chem 7: 07/04/19 04:07 07/04/19 04:07 Labs: Laboratory Last Values WBC 14.0 K/mm3 (4.5-11.0) H 07/03/19 11:43 RBC 4.65 M/mm3 (3.65-5.03) 07/03/19 11:43 Hgb 12.7 gm/dl (11.8-15.2) 07/03/19 11:43 Hct 38.9 % (35.5-45.6) 07/03/19 11:43 MCV 84 fl (84-94) 07/03/19 11:43 MCH 27 pg (28-32) L 07/03/19 11:43 MCHC 33 % (32-34) 07/03/19 11:43 RDW 14.1 % (13.2-15.2) 07/03/19 11:43 Plt Count 277 K/mm3 (140-440) 07/03/19 11:43 Lymph % (Auto) 7.8 % (13.4-35.0) L 07/03/19 11:43 Arthur % (Auto) 9.9 % (0.0-7.3) H 07/03/19 11:43 Eos % (Auto) 0.1 % (0.0-4.3) 07/03/19 11:43 Baso % (Auto) 0.1 % (0.0-1.8) 07/03/19 11:43 Lymph # 1.1 K/mm3 (1.2-5.4) L 07/03/19 11:43 Arthur # 1.4 K/mm3 (0.0-0.8) H 07/03/19 11:43 Eos # 0.0 K/mm3 (0.0-0.4) 07/03/19 11:43 Baso # 0.0 K/mm3 (0.0-0.1) 07/03/19 11:43 Seg Neutrophils % 82.1 % (40.0-70.0) H 07/03/19 11:43 Seg Neutrophils # 11.5 K/mm3 (1.8-7.7) H 07/03/19 11:43 PT 14.9 Sec. (12.2-14.9) 07/03/19 11:43 INR 1.15 (0.87-1.13) H 07/03/19 11:43 APTT 23.7 Sec. (24.2-36.6) L 07/03/19 11:43 VBG pH 7.513 (7.320-7.420) H 07/03/19 11:43 Sodium 139 mmol/L (137-145) 07/03/19 11:43 Potassium 3.3 mmol/L (3.6-5.0) L 07/03/19 11:43 Chloride 84.3 mmol/L (98-107) L 07/03/19 11:43 Carbon Dioxide 29 mmol/L (22-30) 07/03/19 11:43 Anion Gap 29 mmol/L 07/03/19 11:43 BUN 75 mg/dL (9-20) H 07/03/19 11:43 Creatinine 4.0 mg/dL (0.8-1.5) H 07/03/19 11:43 Estimated GFR 15 ml/min 07/03/19 11:43 BUN/Creatinine Ratio 19 % 07/03/19 11:43 Glucose 206 mg/dL (75-100) H 07/03/19 11:43 Lactic Acid 1.20 mmol/L (0.7-2.0) 07/03/19 20:58 Calcium 9.6 mg/dL (8.4-10.2) 07/03/19 11:43 Total Bilirubin 0.80 mg/dL (0.1-1.2) 07/03/19 11:43 AST 22 units/L (5-40) 07/03/19 11:43 ALT 27 units/L (7-56) 07/03/19 11:43 Alkaline Phosphatase 176 units/L (35-129) H 07/03/19 11:43 Troponin T 0.085 ng/mL (0.00-0.029) H 07/03/19 14:47 Total Protein 6.5 g/dL (6.3-8.2) 07/03/19 11:43 Albumin 3.5 g/dL (3.9-5) L 07/03/19 11:43 Albumin/Globulin Ratio 1.2 % 07/03/19 11:43 Triglycerides 174 mg/dL (2-149) H 07/03/19 12:34 Cholesterol 104 mg/dL (50-199) 07/03/19 12:34 LDL Cholesterol Direct 47 mg/dL (50-130) L 07/03/19 12:34 HDL Cholesterol 28 mg/dL (40-59) L 07/03/19 12:34 Cholesterol/HDL Ratio 3.71 % 07/03/19 12:34 Urine Color Yellow (Yellow) 07/03/19 15:40 Urine Turbidity Slightly-cloudy (Clear) 07/03/19 15:40 Urine pH 6.0 (5.0-7.0) 07/03/19 15:40 Ur Specific [place] 1.015 (1.003-1.030) 07/03/19 15:40 Urine Protein 30 mg/dl mg/dL (Negative) 07/03/19 15:40 Urine Glucose (UA) Neg mg/dL (Negative) 07/03/19 15:40 Urine Ketones Neg mg/dL (Negative) 07/03/19 15:40 Urine Blood Sm (Negative) 07/03/19 15:40 Urine Nitrite Neg (Negative) 07/03/19 15:40 Urine Bilirubin Neg (Negative) 07/03/19 15:40 Urine Urobilinogen < 2.0 mg/dL (<2.0) 07/03/19 15:40 Ur Leukocyte Esterase Neg (Negative) 07/03/19 15:40 Urine WBC (Auto) 3.0 /HPF (0.0-6.0) 07/03/19 15:40 Urine RBC (Auto) 3.0 /HPF (0.0-6.0) 07/03/19 15:40 U Epithel Cells (Auto) 3.0 /HPF (0-13.0) 07/03/19 15:40 Urine Mucus Few /HPF 07/03/19 15:40 Short CBC 07/03/19 07/04/19 Range/Units 11:43 04:07 WBC 14.0 H 7.3 (4.5-11.0) K/mm3 Hgb 12.7 10.5 L (11.8-15.2) gm/dl Hct 38.9 31.7 L D (35.5-45.6) % Plt Count 277 182 (140-440) K/mm3 BMP 07/03/19 07/04/19 11:43 04:07 Sodium 139 140 Potassium 3.3 L 3.7 Chloride 84.3 L 92.3 L Carbon Dioxide 29 33 H BUN 75 H 80 H Creatinine 4.0 H 3.9 H Glucose 206 H 111 H Calcium 9.6 8.1 L D Cardiac Enzymes 07/03/19 07/03/19 Range/Units 12:34 14:47 Troponin T 0.089 H 0.085 H (0.00-0.029) ng/mL Liver Function 07/03/19 07/04/19 Range/Units 11:43 04:07 Total Bilirubin 0.80 0.30 (0.1-1.2) mg/dL AST 22 19 (5-40) units/L ALT 27 20 (7-56) units/L Alkaline Phosphatase 176 H 124 (35-129) units/L Albumin 3.5 L 3.0 L (3.9-5) g/dL Urine 07/03/19 Range/Units 15:40 Urine Color Yellow (Yellow) Urine pH 6.0 (5.0-7.0) Ur Specific [place] 1.015 (1.003-1.030) Urine Protein 30 mg/dl (Negative) mg/dL Urine Glucose (UA) Neg (Negative) mg/dL - Imaging and Cardiology EKG: report reviewed Assessment and Plan Advance Directives: Yes (Full code) VTE prophylaxis?: Chemical Plan of care discussed with patient/family: Yes - Patient Problems (1) ANMOL (acute kidney injury) Current Visit: Yes Status: Acute Plan to address problem: IV fluids fdor now Nephrology cnosult requested (2) Near syncope Current Visit: Yes Status: Acute Plan to address problem: Admitted for observation Patient hypotensive initially Carotid duples scan ordered IV fluids (3) BPH (benign prostatic hyperplasia) Current Visit: No Status: Chronic Qualifiers: Lower urinary tract symptom presence: symptoms present Plan to address problem: COnt Flomax and Proscar (4) HLD (hyperlipidemia) Current Visit: No Status: Chronic Qualifiers: Hyperlipidemia type: mixed hyperlipidemia Qualified Code(s): E78.2 - Mixed hyperlipidemia Plan to address problem: Cont statins (5) HTN (hypertension) Current Visit: No Status: Chronic Qualifiers: Hypertension type: essential hypertension Qualified Code(s): I10 - Essential (primary) hypertension Plan to address problem: Hold antihypertensives and resume when BP stable (6) Hypothyroidism (acquired) Current Visit: No Status: Chronic Plan to address problem: Cont Synthyroid (7) Vitamin D deficiency Current Visit: No Status: Chronic Plan to address problem: Cont vit D (8) DVT prophylaxis Current Visit: No Status: Acute Plan to address problem: On Eliquis for past DVT
[2019-07-03] MEDS ORDERED: oxyCODONE /ACETAMINOPHEN 5-325MG TAB PO PRN (22:39)
[2019-07-03] MEDS ORDERED: ACETAMINOPHEN 325 MG TAB PO PRN (22:39)
[2019-07-03] MEDS ORDERED: HYDROmorphone 1 MG/1 ML INJ IV PRN (22:39)
[2019-07-03] MEDS: SODIUM CHLORIDE 0.9% 1000 ML 1,000 ML IV SCH (22:59)
[2019-07-04 04:22] LABS: Basophils % (Auto) 0.4 % (0.0-1.8); Eosinophils # (Auto) 0.1 K/mm3 (0.0-0.4); Eosinophils % (Auto) 1.2 % (0.0-4.3); Hematocrit 31.7 % (35.5-45.6); Hemoglobin 10.5 gm/dl (11.8-15.2); Lymphocytes # (Auto) 0.9 K/mm3 (1.2-5.4); Lymphocytes % (Auto) 12.1 % (13.4-35.0); Mean Corpuscular HGB Conc 33 % (32-34); Mean Corpuscular Volume 84 fl (84-94); Monocytes # (Auto) 0.8 K/mm3 (0.0-0.8); Monocytes % (Auto) 11.2 % (0.0-7.3); Platelet Count 182 K/mm3 (140-440); Red Blood Count 3.75 M/mm3 (3.65-5.03)
[2019-07-04 04:45] LABS: Calcium 8.1 mg/dL (8.4-10.2)
[2019-07-04] MEDS ORDERED: LEVOTHYROXINE 25 MCG TAB PO SCH (06:00)
[2019-07-04] MEDS ORDERED: LEVOTHYROXINE 112 MCG TAB PO SCH (06:00)
--- NOTE | 2019-07-04 08:29 | Event Note ---
Date: 07/04/[address] Lopez as an outpatient. Have instructed staff to consult their group, thanks.
--- NOTE | 2019-07-04 09:55 | Vascular Lab Report ---
BILATERAL CAROTID DOPPLER ULTRASOUND INDICATION : Near Syncope TECHNIQUE: Grayscale and color Doppler imaging performed through the neck. COMPARISON: None FINDINGS: Right: There is mild to moderate partially calcified plaque in the carotid bulb and proximal ICA. P eak systolic velocity in the CCA is 81 cm/s with end-diastolic velocity of 20 cm/s. Peak systolic damien ocity in the proximal ICA is 83 cm/s with end-diastolic velocity of 19 cm/s. ICA to CCA ratio is less than 2. There is antegrade flow in the ECA and the vertebral artery. Left: There is mild intimal hyperplasia in the mid CCA and mild partially calcified plaque in the bul b and proximal ICA. Peak systolic velocity in the CCA is 88 cm/s with end-diastolic velocity of 21 cm /s. Peak systolic velocity in the proximal ICA is 79 cm/s with end-diastolic velocity of 30 cm/s. ICA to CCA ratio is less than 2. There is antegrade flow in the ECA and the vertebral artery. IMPRESSION: No hemodynamically significant stenosis by NASCET criteria. There is less than 50% lumina l narrowing throughout both carotid systems. Mild to moderate plaques are noted at both bifurcations. Signer Name: Gaurav Pittman Jr, MD Signed: 07/04/2019 9:50 AM Workstation Name: [id number]
[2019-07-04] MEDS ORDERED: METOPROLOL SUCCINATE XL 50 MG TAB PO SCH (10:00)
[2019-07-04] MEDS ORDERED: amLODIPine 5 MG TAB PO SCH (10:00)
[2019-07-04] MEDS: FAMOTIDINE 20 MG TAB PO SCH (10:40)
[2019-07-04] MEDS: PRAZOSIN 1 MG CAP PO SCH (10:40)
[2019-07-04] MEDS: APIXABAN 5 MG TAB PO SCH (10:40)
[2019-07-04] MEDS: cefTRIAXone/NS 2 GM/100 ML 2 GM/100 ML BAG IV SCH (10:40)
--- NOTE | 2019-07-04 14:24 | Progress Note ---
Assessment and Plan / ANMOL (acute kidney injury) IV fluids for now Nephrology consult requested follow BMP / Near syncope due to orthostatic hypotension cont IV fluids, hold BP meds Monitor orthostatic vitals q8h ordered for PT eval / BPH (benign prostatic hyperplasia): COnt Flomax and Proscar /h/o bladder cancer - follows up with Dr Miller / ALY (hyperlipidemia) Cont statins / HTN (hypertension) Hold antihypertensives and resume when BP stable /Hypothyroidism (acquired) TSH still elevated Cont Synthyroid and increase the dose /Vitamin D deficiency Cont vit D replacement / DVT prophylaxis On Eliquis for past DVT Brief History: Mr Young is a very pleasant 79-year-old male who comes to the emergency room after falling outside of his doctor's office. Subjective Date of service: 07/04/19 Interval history: Patient seen and examined Noted orthostatic on PT eval c/o lightheadedness on ambulation denies any chest pain or SOB Objective - Constitutional Vitals: Vital Signs - 12hr 07/04/19 07/04/19 07/04/19 02:57 08:01 11:36 Temperature 98.8 F 98.1 F Pulse Rate 81 78 74 Respiratory 18 18 Rate Blood Pressure 122/62 134/65 106/58 O2 Sat by Pulse 95 94 96 Oximetry 07/04/19 11:40 Temperature Pulse Rate 84 Respiratory Rate Blood Pressure 74/43 O2 Sat by Pulse 98 Oximetry General appearance: Present: no acute distress, well-nourished - EENT Eyes: PERRL, EOM intact ENT: hearing intact, clear oral mucosa Ears: bilateral: normal - Neck Neck: supple, normal ROM - Respiratory Respiratory effort: normal Respiratory: bilateral: CTA - Breasts Breasts: normal - Cardiovascular Rhythm: regular Heart Sounds: Present: S1 & S2. Absent: gallop, rub Extremities: pulses intact, No edema, normal color, Full ROM - Gastrointestinal General gastrointestinal: Present: soft, non-tender, non-distended, normal bowel sounds - Integumentary Integumentary: clear, warm, dry - Musculoskeletal Musculoskeletal: 1, strength equal bilaterally - Neurologic Neurologic: moves all extremities - Psychiatric Psychiatric: memory intact, appropriate mood/affect, intact judgment & insight - Labs CBC & Chem 7: 07/04/19 04:07 07/04/19 04:07 Labs: Abnormal lab results 07/03/19 07/03/19 07/03/19 Range/Units 12:34 14:47 14:47 Hgb (11.8-15.2) gm/dl Hct (35.5-45.6) % Lymph % (Auto) (13.4-35.0) % [place] % (Auto) (0.0-7.3) % Lymph # (1.2-5.4) K/mm3 Seg Neutrophils % (40.0-70.0) % Chloride (98-107) mmol/L Carbon Dioxide (22-30) mmol/L BUN (9-20) mg/dL Creatinine (0.8-1.5) mg/dL Glucose (75-100) mg/dL Hemoglobin A1c (4-6) % Lactic Acid 2.30 H* (0.7-2.0) mmol/L Calcium (8.4-10.2) mg/dL Troponin T 0.085 H (0.00-0.029) ng/mL Total Protein (6.3-8.2) g/dL Albumin (3.9-5) g/dL Triglycerides 174 H (2-149) mg/dL LDL Cholesterol Direct 47 L (50-130) mg/dL HDL Cholesterol 28 L (40-59) mg/dL TSH (0.270-4.200) mlU/mL 07/04/19 07/04/19 07/04/19 Range/Units 04:07 04:07 04:07 Hgb 10.5 L (11.8-15.2) gm/dl Hct 31.7 L D (35.5-45.6) % Lymph % (Auto) 12.1 L (13.4-35.0) % [place] % (Auto) 11.2 H (0.0-7.3) % Lymph # 0.9 L (1.2-5.4) K/mm3 Seg Neutrophils % 75.1 H (40.0-70.0) % Chloride 92.3 L (98-107) mmol/L Carbon Dioxide 33 H (22-30) mmol/L BUN 80 H (9-20) mg/dL Creatinine 3.9 H (0.8-1.5) mg/dL Glucose 111 H (75-100) mg/dL Hemoglobin A1c 6.1 H (4-6) % Lactic Acid (0.7-2.0) mmol/L Calcium 8.1 L D (8.4-10.2) mg/dL Troponin T (0.00-0.029) ng/mL Total Protein 5.2 L (6.3-8.2) g/dL Albumin 3.0 L (3.9-5) g/dL Triglycerides (2-149) mg/dL LDL Cholesterol Direct (50-130) mg/dL HDL Cholesterol (40-59) mg/dL TSH (0.270-4.200) mlU/mL 07/04/19 Range/Units 11:17 Hgb (11.8-15.2) gm/dl Hct (35.5-45.6) % Lymph % (Auto) (13.4-35.0) % [place] % (Auto) (0.0-7.3) % Lymph # (1.2-5.4) K/mm3 Seg Neutrophils % (40.0-70.0) % Chloride (98-107) mmol/L Carbon Dioxide (22-30) mmol/L BUN (9-20) mg/dL Creatinine (0.8-1.5) mg/dL Glucose (75-100) mg/dL Hemoglobin A1c (4-6) % Lactic Acid (0.7-2.0) mmol/L Calcium (8.4-10.2) mg/dL Troponin T (0.00-0.029) ng/mL Total Protein (6.3-8.2) g/dL Albumin (3.9-5) g/dL Triglycerides (2-149) mg/dL LDL Cholesterol Direct (50-130) mg/dL HDL Cholesterol (40-59) mg/dL TSH 13.120 H (0.270-4.200) mlU/mL
--- NOTE | 2019-07-04 14:25 | Progress Note ---
Objective - Vital Signs Vital signs: Vital Signs - 12hr 07/04/19 07/04/19 07/04/19 02:57 08:01 11:36 Temperature 98.8 F 98.1 F Pulse Rate 81 78 74 Respiratory 18 18 Rate Blood Pressure 122/62 134/65 106/58 O2 Sat by Pulse 95 94 96 Oximetry 07/04/19 11:40 Temperature Pulse Rate 84 Respiratory Rate Blood Pressure 74/43 O2 Sat by Pulse 98 Oximetry - Lab 07/04/19 04:07 07/04/19 04:07 Most recent lab results Calcium 8.1 mg/dL (8.4-10.2) L D 07/04/19 04:07 Medications & Allergies - Medications Allergies/Adverse Reactions: Allergies kiwi Allergy (Mild, Verified 08/12/15 06:18) TONGUE SWELLING, EYES WATERY Home Medications: Home Medications Medication Instructions Recorded Confirmed Last Taken Type Famotidine [Pepcid] 40 mg PO DAILY 08/12/15 07/03/19 11/16/18 08:00 History 40 mg Furosemide [Lasix TAB] 40 mg PO DAILY 08/12/15 07/03/19 10/17/18 08:00 History 40 mg Levothyroxine [Synthroid] 137 mcg PO DAILY 08/12/15 07/03/19 12/17/18 05:00 History 137 mcg Terazosin (Nf) [Hytrin (Nf)] 5 mg PO QHS 08/12/15 07/03/19 12/17/18 05:00 History 5 mg Rosuvastatin (Nf) [Crestor] 5 mg PO QHS 10/01/18 07/03/19 12/16/18 19:00 History Ergocalciferol (Vitamin D2) 2,000 unit PO DAILY 12/10/18 07/03/19 12/10/18 08:00 History [Vitamin D2] Finasteride [Proscar] 5 mg PO QHS 12/10/18 07/03/19 12/17/18 05:00 History Toprol Xl 50 mg PO DAILY 12/10/18 07/03/19 12/17/18 05:00 History amLODIPine [Norvasc] 5 mg PO DAILY 12/10/18 07/03/19 12/16/18 19:00 History Apixaban [Eliquis] 1 tab PO BID 07/03/19 07/03/19 Unknown History Active Medications: Generic Name Dose Route Start Last Admin Trade Name Freq PRN Reason Stop Dose Admin Acetaminophen 650 mg 07/03/19 22:39 Tylenol PO Q4H PRN Pain MILD(1-3)/Fever >100.5/[place] Amlodipine Besylate 5 mg 07/04/19 10:00 07/04/19 10:40 Amlodipine PO 5 mg DAILY ÁNGEL Administration Apixaban 5 mg 07/04/19 10:00 07/04/19 10:40 Eliquis PO 5 mg BID ÁNGEL Administration Protocol Famotidine 40 mg 07/04/19 10:00 07/04/19 10:40 Pepcid PO 40 mg QAM ÁNGEL Administration Finasteride 5 mg 07/04/19 22:00 Proscar PO QHS ÁNGEL Hydromorphone HCl 0.5 mg 07/03/19 22:39 Dilaudid IV Q3H PRN Pain , Severe (7-10) Ceftriaxone Sodium 2 gm in 100 mls @ 200 mls/hr 07/03/19 13:00 07/04/19 10:40 Rocephin/Ns 2 Gm/100 Ml IV 200 mls/hr Q24HR ÁNGEL Administration Protocol Sodium Chloride 1,000 mls @ 75 mls/hr 07/03/19 22:45 07/03/19 22:59 Nacl 0.9% 1000 Ml IV 75 mls/hr DIRECT ÁNGEL Administration Levothyroxine Sodium 112 mcg 07/04/19 06:00 07/04/19 10:40 Synthroid PO 112 mcg 0600 ÁNGEL Administration Levothyroxine Sodium 25 mcg 07/04/19 06:00 07/04/19 10:40 Synthroid PO 25 mcg DAILY@0600 ÁNGEL Administration Metoclopramide HCl 5 mg 07/03/19 22:39 Reglan IV Q6H PRN Nausea And Vomiting Metoprolol Succinate 50 mg 07/04/19 10:00 07/04/19 10:40 Metoprolol Xl PO 50 mg QDAY ÁNGEL Administration Ondansetron HCl 4 mg 07/03/19 22:39 Zofran IV Q8H PRN Nausea And Vomiting Oxycodone/Acetaminophen 1 tab 07/03/19 22:39 Percocet 5/325 PO Q6H PRN Pain, Moderate (4-6) Prazosin HCl 1 mg 07/04/19 10:00 07/04/19 10:40 Prazosin PO 1 mg BID ÁNGEL Administration Sodium Chloride 10 ml 07/04/19 10:00 07/04/19 10:40 Sodium Chloride Flush Syringe 10 Ml IV 10 ml BID ÁNGEL Administration Sodium Chloride 10 ml 07/03/19 22:39 Sodium Chloride Flush Syringe 10 Ml IV PRN PRN LINE FLUSH
[2019-07-04] MEDS: SODIUM CHLORIDE 0.9% 1000 ML 1,000 ML IV SCH (15:15)
--- NOTE | 2019-07-04 17:10 | Consultation ---
History of Present Illness - Reason for Consult acute renal failure, chronic renal failure - History of Present Illness This is a 79 year old man who presents with fall outside of his doctor's office. He follows with Dr. Lopez for CKD; he is currently following with Dr. Faulkner and Dr. Miller for bladder cancer. At time of fall, he was dizzy, with recent nausea and vomiting. He is on Eliquis and for a history of DVT with an IVC filter last year. He is currently feeling ok, and is at bedside. Notes that he is on Keytruda, and generally tolerating well for past several weeks. Was due for appointment with Dr. Miller tomorrow. He saw Dr. Lopez in clinic on 06/26/2019; reviewed note from [facility] which showed creatinine at that time of 2.3 which was already higher than previously. He currently notes good urination (has maurer), no dyspnea, no edema. Past History Past Medical History: cancer, DVT, renal failure Past Surgical History: No surgical history Social history: no significant social history Family history: no significant family history Medications and Allergies Allergies Allergy/AdvReac Type Severity Reaction Status Date / Time kiwi Allergy Mild TONGUE Verified 08/12/15 06:18 SWELLING, EYES WATERY Home Medications Medication Instructions Recorded Confirmed Last Taken Type Famotidine [Pepcid] 40 mg PO DAILY 08/12/15 07/03/19 11/16/18 08:00 History 40 mg Furosemide [Lasix TAB] 40 mg PO DAILY 08/12/15 07/03/19 10/17/18 08:00 History 40 mg Levothyroxine [Synthroid] 137 mcg PO DAILY 08/12/15 07/03/19 12/17/18 05:00 History 137 mcg Terazosin (Nf) [Hytrin (Nf)] 5 mg PO QHS 08/12/15 07/03/19 12/17/18 05:00 History 5 mg Rosuvastatin (Nf) [Crestor] 5 mg PO QHS 10/01/18 07/03/19 12/16/18 19:00 History Ergocalciferol (Vitamin D2) 2,000 unit PO DAILY 12/10/18 07/03/19 12/10/18 08:00 History [Vitamin D2] Finasteride [Proscar] 5 mg PO QHS 07/07/03/19 12/17/18 05:00 History Toprol Xl 50 mg PO DAILY 12/10/18 07/03/19 12/17/18 05:00 History amLODIPine [Norvasc] 5 mg PO DAILY 12/10/18 07/03/19 12/16/18 19:00 History Apixaban [Eliquis] 1 tab PO BID 07/03/19 07/03/19 Unknown History Active Meds: Active Medications Acetaminophen (Tylenol) 650 mg PO Q4H PRN PRN Reason: Pain MILD(1-3)/Fever >100.5/[place] Apixaban (Eliquis) 5 mg PO BID [facility]; Protocol Last Admin: 07/04/19 10:40 Dose: 5 mg Documented by: Famotidine (Pepcid) 40 mg PO QAM [facility] Last Admin: 07/04/19 10:40 Dose: 40 mg Documented by: Finasteride (Proscar) 5 mg PO QHS [facility] Hydromorphone HCl (Dilaudid) 0.5 mg IV Q3H PRN PRN Reason: Pain , Severe (7-10) Ceftriaxone Sodium (Rocephin/Ns 2 Gm/100 Ml) 2 gm in 100 mls @ 200 mls/hr IV Q24HR [facility]; Protocol Last Admin: 07/04/19 10:40 Dose: 200 mls/hr Documented by: Sodium Chloride (Nacl 0.9% 1000 Ml) 1,000 mls @ 75 mls/hr IV DIRECT [facility] Last Admin: 07/04/19 15:15 Dose: 75 mls/hr Documented by: Levothyroxine Sodium (Synthroid) 150 mcg PO DAILY@0600 [facility] Levothyroxine Sodium (Synthroid) 25 mcg PO DAILY@0600 [facility] Metoclopramide HCl (Reglan) 5 mg IV Q6H PRN PRN Reason: Nausea And Vomiting Ondansetron HCl (Zofran) 4 mg IV Q8H PRN PRN Reason: Nausea And Vomiting Oxycodone/Acetaminophen (Percocet 5/325) 1 tab PO Q6H PRN PRN Reason: Pain, Moderate (4-6) Prazosin HCl (Prazosin) 1 mg PO BID [facility] Last Admin: 07/04/19 10:40 Dose: 1 mg Documented by: Sodium Chloride (Sodium Chloride Flush Syringe 10 Ml) 10 ml IV BID [facility] Last Admin: 07/04/19 10:40 Dose: 10 ml Documented by: Sodium Chloride (Sodium Chloride Flush Syringe 10 Ml) 10 ml IV PRN PRN PRN Reason: LINE FLUSH Review of Systems Constitutional: fatigue, weakness, no weight loss, no weight gain, no anorexia Cardiovascular: no chest pain, no orthopnea, no palpitations Respiratory: no cough, no shortness of breath, no pain Gastrointestinal: nausea, vomiting, no abdominal pain, no diarrhea Genitourinary Male: no dysuria Musculoskeletal: no neck stiffness, no muscle cramps Integumentary: no rash Neurological: head injury, weakness, no headaches, no migraines Psychiatric: no anxiety Exam - Vital Signs Vital signs: Vital Signs Temp Pulse Resp BP Pulse Ox 97.2 F L 141 H 18 100/69 94 07/03/19 11:28 07/03/19 11:28 07/03/19 11:28 07/03/19 11:28 07/03/19 11:28 - Physical Exam Narrative exam: Constitutional: no acute distress Head: NC/AT Neck: supple Lungs: clear to auscultation CV: RRR, no M/R/G Abdomen: soft, non-tender, bowel sounds present Back: nontender Extremities: no edema, pulses WNL Skin: intact Neuro: no focal deficits, alert and oriented x4 Results - Lab Results 07/04/19 04:07 07/05/19 01:02 Most recent lab results Calcium 8.1 mg/dL (8.4-10.2) L D 07/04/19 04:07 Assessment and Plan This is a 79 year old man with bladder cancer who presents with fall, near syncope. # ANMOL on CKD: suspect tubular injury in setting of hypotension, potentially prolonged pre-renal injury with recent N/V. Several risk factors for CKD including use of chemotherapy (checkpoint inhibitors known for interstitial injury), bladder cancer/obstructive nephropathy. No dialysis needs, but did discuss that he is at higher risk for kidney failure given number of co- morbidities - daily labs - renally dose meds - avoid nephrotoxins - renal diet - ultrasound reviewed; follows with urology - urinalysis reviewed - continue supportive measures with IVF, maintain MAP >70 # Anemia: last hemoglobin >10. Follows with Dr. Milelr # HTN: BP soft, likely contributing to renal injury # Syncope: symptoms improved # Lactic Acidosis: f/u cultures
--- NOTE | 2019-07-04 18:10 | Ultrasound Report ---
ULTRASOUND RENAL INDICATION / CLINICAL INFORMATION: Acute kidney injury in the setting of chronic kidney disease. COMPARISON: None available. FINDINGS: The right kidney has a length of 10 cm. There is mild cortical thinning, and the cortex is markedly e chogenic. Moderate degree of dilatation in the calyces and renal pelvis. A couple small cysts are not ed. The left kidney is 11 cm in length and has echogenic cortex similar to that of the right kidney. Coup le small cysts are noted. The renal pelvis may be mildly prominent; no definite calyceal dilatation. The urinary bladder is incompletely distended. The completely collapsed after the patient voided. Biliary sludge is noted in the gallbladder. IMPRESSION: 1. Moderate right hydronephrosis and possible mild left hydronephrosis. 2. Increased echogenicity of the renal cortices is compatible with underlying intrinsic renal disease . 3. No bladder residual following voiding. 4. Incidental note is made of biliary sludge. Signer Name: Irvin Natarajan MD Signed: 07/04/2019 6:05 PM Workstation Name: [id number]
[2019-07-05] MEDS: PRAZOSIN 1 MG CAP PO SCH ×3 (00:16→21:23)
[2019-07-05] MEDS: FINASTERIDE 5 MG TAB PO SCH ×2 (00:17→21:21)
[2019-07-05] MEDS: APIXABAN 5 MG TAB PO SCH ×3 (00:17→21:21)
[2019-07-05 01:51] LABS: Calcium 7.6 mg/dL (8.4-10.2)
[2019-07-05] MEDS ORDERED: POTASSIUM CHLORIDE ER 10 MEQ TAB PO ONE (02:41)
[2019-07-05] MEDS ORDERED: LEVOTHYROXINE 150 MCG, LEVOTHYROXINE 25 MCG PO SCH (06:00)
[2019-07-05] MEDS: SODIUM CHLORIDE 0.9% 1000 ML 1,000 ML IV SCH (09:03)
[2019-07-05] MEDS: FAMOTIDINE 20 MG TAB PO SCH (10:29)
[2019-07-05] MEDS: cefTRIAXone/NS 2 GM/100 ML 2 GM/100 ML BAG IV SCH (10:30)
--- NOTE | 2019-07-05 10:36 | Progress Note ---
Assessment and Plan This is a 79 year old man with bladder cancer who presents with fall, near syncope. # ANMOL on CKD: suspect tubular injury in setting of hypotension, potentially prolonged pre-renal injury with recent N/V. Creatinine improving with support lisa measures. Several risk factors for CKD including use of chemotherapy (checkpoint inhibitors known for interstitial injury), bladder cancer/obstructive nephropathy. No dialysis needs and suspect he will not need renal replacement therapy, but did discuss that he is at higher risk for kidney failure given number of co-morbidities - daily labs - renally dose meds - avoid nephrotoxins - renal diet - ultrasound reviewed; follows with urology - continue supportive measures with IVF, maintain MAP >70 - ok to replete K prn # Anemia: last hemoglobin >10. Follows with Dr. Miller # HTN: BP soft, likely contributing to renal injury, has been stable # Syncope: symptoms improved # Lactic Acidosis: improving with IVF. Cultures NGTD. Subjective Date of service: 07/05/19 Interval history: No acute events noted. Feeling much better this AM. Continues to make urine. Objective - Exam Narrative Exam: Constitutional: no acute distress Head: NC/AT Neck: supple Lungs: clear to auscultation CV: RRR, no M/R/G Abdomen: soft, non-tender, bowel sounds present Back: nontender Extremities: no edema, pulses WNL Skin: intact Neuro: no focal deficits, alert and oriented x4 - Vital Signs Vital signs: Vital Signs - 12hr 07/05/19 07/05/19 07/05/19 00:16 03:16 08:06 Temperature 98.0 F 98.3 F Pulse Rate 62 74 100 H Respiratory 20 20 Rate Blood Pressure 108/67 116/42 106/60 O2 Sat by Pulse 95 99 Oximetry 07/05/19 10:30 Temperature Pulse Rate 100 H Respiratory Rate Blood Pressure 106/60 O2 Sat by Pulse Oximetry - Lab 07/04/19 04:07 07/05/19 01:02 Most recent lab results Calcium 7.6 mg/dL (8.4-10.2) L 07/05/19 01:02 Magnesium 1.90 mg/dL (1.7-2.3) 07/05/19 05:32 Medications & Allergies - Medications Allergies/Adverse Reactions: Allergies kiwi Allergy (Mild, Verified 08/12/15 06:18) TONGUE SWELLING, EYES WATERY Home Medications: Home Medications Medication Instructions Recorded Confirmed Last Taken Type Famotidine [Pepcid] 40 mg PO DAILY 08/12/15 07/03/19 11/16/18 08:00 History 40 mg Furosemide [Lasix TAB] 40 mg PO DAILY 08/12/15 07/03/19 10/17/18 08:00 History 40 mg Levothyroxine [Synthroid] 137 mcg PO DAILY 08/12/15 07/03/19 12/17/18 05:00 History 137 mcg Terazosin (Nf) [Hytrin (Nf)] 5 mg PO QHS 08/12/15 07/03/19 12/17/18 05:00 History 5 mg Rosuvastatin (Nf) [Crestor] 5 mg PO QHS 10/01/18 07/03/19 12/16/18 19:00 History Ergocalciferol (Vitamin D2) 2,000 unit PO DAILY 12/10/18 07/03/19 12/10/18 08:00 History [Vitamin D2] Finasteride [Proscar] 5 mg PO QHS 12/10/18 07/03/19 12/17/18 05:00 History Toprol Xl 50 mg PO DAILY 12/10/18 07/03/19 12/17/18 05:00 History amLODIPine [Norvasc] 5 mg PO DAILY 12/10/18 07/03/19 12/16/18 19:00 History Apixaban [Eliquis] 1 tab PO BID 07/03/19 07/03/19 Unknown History Active Medications: Generic Name Dose Route Start Last Admin Trade Name Freq PRN Reason Stop Dose Admin Acetaminophen 650 mg 07/03/19 22:39 Tylenol PO Q4H PRN Pain MILD(1-3)/Fever >100.5/[place] Apixaban 5 mg 07/04/19 10:00 07/05/19 10:30 Eliquis PO 5 mg BID ÁNGEL Administration Protocol Famotidine 40 mg 07/04/19 10:00 07/05/19 10:29 Pepcid PO 40 mg QAM ÁNGEL Administration Finasteride 5 mg 07/04/19 22:00 07/05/19 00:17 Proscar PO 5 mg QHS ÁNGEL Administration Hydromorphone HCl 0.5 mg 07/03/19 22:39 Dilaudid IV Q3H PRN Pain , Severe (7-10) Ceftriaxone Sodium 2 gm in 100 mls @ 200 mls/hr 07/03/19 13:00 07/05/19 10:30 Rocephin/Ns 2 Gm/100 Ml IV 200 mls/hr Q24HR ÁNGEL Administration Protocol Sodium Chloride 1,000 mls @ 75 mls/hr 07/03/19 22:45 07/04/19 15:15 Nacl 0.9% 1000 Ml IV 75 mls/hr DIRECT ÁNGEL Administration Levothyroxine Sodium 150 mcg 07/05/19 06:00 Synthroid PO DAILY@0600 ÁNGEL Levothyroxine Sodium 25 mcg 07/05/19 06:00 Synthroid PO DAILY@0600 ÁNGEL Metoclopramide HCl 5 mg 07/03/19 22:39 Reglan IV Q6H PRN Nausea And Vomiting Ondansetron HCl 4 mg 07/03/19 22:39 Zofran IV Q8H PRN Nausea And Vomiting Oxycodone/Acetaminophen 1 tab 07/03/19 22:39 Percocet 5/325 PO Q6H PRN Pain, Moderate (4-6) Prazosin HCl 1 mg 07/04/19 10:00 07/05/19 10:30 Prazosin PO 1 mg BID ÁNGEL Administration Sodium Chloride 10 ml 07/04/19 10:00 07/05/19 00:20 Sodium Chloride Flush Syringe 10 Ml IV 10 ml BID ÁNGEL Administration Sodium Chloride 10 ml 07/03/19 22:39 Sodium Chloride Flush Syringe 10 Ml IV PRN PRN LINE FLUSH
--- NOTE | 2019-07-05 11:37 | Progress Note ---
Assessment and Plan Assessment and plan: ANMOL (acute kidney injury) Improving IV fluids for now Nephrology consulted, following Near syncope due to orthostatic hypotension cont IV fluids, hold BP meds Monitor orthostatic vitals q8h ordered for PT eval BPH (benign prostatic hyperplasia): COnt Flomax and Proscar h/o bladder cancer - follows up with Dr Angela LU (hyperlipidemia) Cont statins HTN (hypertension) Hold antihypertensives and resume when BP stable Hypothyroidism (acquired) TSH still elevated Cont Synthyroid and increase the dose Vitamin D deficiency Cont vit D replacement DVT prophylaxis On Eliquis for past DVT History Interval history: Patient with near syncope feels better Hospitalist Physical - Physical exam Narrative exam: General appearance: Present: no acute distress, well-nourished - EENT Eyes: PERRL, EOM intact ENT: hearing intact, clear oral mucosa Ears: bilateral: normal - Neck Neck: supple, normal ROM - Respiratory Respiratory effort: normal Respiratory: bilateral: CTA - Breasts Breasts: normal - Cardiovascular Rhythm: regular Heart Sounds: Present: S1 & S2. Absent: gallop, rub Extremities: pulses intact, No edema, normal color, Full ROM - Gastrointestinal General gastrointestinal: Present: soft, non-tender, non-distended, normal bowel sounds - Integumentary Integumentary: clear, warm, dry - Musculoskeletal Musculoskeletal: 1, strength equal bilaterally - Neurologic Neurologic: moves all extremities - Psychiatric Psychiatric: memory intact, appropriate mood/affect, intact judgment & insight - Constitutional Vitals: Temp Pulse Resp BP Pulse Ox 98.3 F 100 H 20 106/60 99 07/05/19 08:06 07/05/19 10:30 07/05/19 08:06 07/05/19 10:30 07/05/19 08:06 General appearance: Present: no acute distress, well-nourished Results - Labs CBC & Chem 7: 07/04/19 04:07 07/05/19 12:27 Labs: Laboratory Last Values WBC 7.3 K/mm3 (4.5-11.0) 07/04/19 04:07 RBC 3.75 M/mm3 (3.65-5.03) 07/04/19 04:07 Hgb 10.5 gm/dl (11.8-15.2) L 07/04/19 04:07 Hct 31.7 % (35.5-45.6) L D 07/04/19 04:07 MCV 84 fl (84-94) 07/04/19 04:07 MCH 28 pg (28-32) 07/04/19 04:07 MCHC 33 % (32-34) 07/04/19 04:07 RDW 14.0 % (13.2-15.2) 07/04/19 04:07 Plt Count 182 K/mm3 (140-440) 07/04/19 04:07 Lymph % (Auto) 12.1 % (13.4-35.0) L 07/04/19 04:07 [place] % (Auto) 11.2 % (0.0-7.3) H 07/04/19 04:07 Eos % (Auto) 1.2 % (0.0-4.3) 07/04/19 04:07 Baso % (Auto) 0.4 % (0.0-1.8) 07/04/19 04:07 Lymph # 0.9 K/mm3 (1.2-5.4) L 07/04/19 04:07 [place] # 0.8 K/mm3 (0.0-0.8) 07/04/19 04:07 Eos # 0.1 K/mm3 (0.0-0.4) 07/04/19 04:07 Baso # 0.0 K/mm3 (0.0-0.1) 07/04/19 04:07 Seg Neutrophils % 75.1 % (40.0-70.0) H 07/04/19 04:07 Seg Neutrophils # 5.5 K/mm3 (1.8-7.7) 07/04/19 04:07 PT 14.9 Sec. (12.2-14.9) 07/03/19 11:43 INR 1.15 (0.87-1.13) H 07/03/19 11:43 APTT 23.7 Sec. (24.2-36.6) L 07/03/19 11:43 VBG pH 7.513 (7.320-7.420) H 07/03/19 11:43 Sodium 140 mmol/L (137-145) 07/05/19 01:02 Potassium 2.9 mmol/L (3.6-5.0) L* D 07/05/19 01:02 Chloride 96.7 mmol/L (98-107) L 07/05/19 01:02 Carbon Dioxide 29 mmol/L (22-30) 07/05/19 01:02 Anion Gap 17 mmol/L 07/05/19 01:02 BUN 71 mg/dL (9-20) H 07/05/19 01:02 Creatinine 3.1 mg/dL (0.8-1.5) H 07/05/19 01:02 Estimated GFR 20 ml/min 07/05/19 01:02 BUN/Creatinine Ratio 23 % 07/05/19 01:02 Glucose 109 mg/dL (75-100) H 07/05/19 01:02 Hemoglobin A1c 6.1 % (4-6) H 07/04/19 04:07 Lactic Acid 1.20 mmol/L (0.7-2.0) 07/03/19 20:58 Calcium 7.6 mg/dL (8.4-10.2) L 07/05/19 01:02 Magnesium 1.90 mg/dL (1.7-2.3) 07/05/19 05:32 Total Bilirubin 0.30 mg/dL (0.1-1.2) 07/04/19 04:07 AST 19 units/L (5-40) 07/04/19 04:07 ALT 20 units/L (7-56) 07/04/19 04:07 Alkaline Phosphatase 124 units/L (35-129) 07/04/19 04:07 Troponin T 0.085 ng/mL (0.00-0.029) H 07/03/19 14:47 Total Protein 5.2 g/dL (6.3-8.2) L 07/04/19 04:07 Albumin 3.0 g/dL (3.9-5) L 07/04/19 04:07 Albumin/Globulin Ratio 1.4 % 07/04/19 04:07 Triglycerides 174 mg/dL (2-149) H 07/03/19 12:34 Cholesterol 104 mg/dL (50-199) 07/03/19 12:34 LDL Cholesterol Direct 47 mg/dL (50-130) L 07/03/19 12:34 HDL Cholesterol 28 mg/dL (40-59) L 07/03/19 12:34 Cholesterol/HDL Ratio 3.71 % 07/03/19 12:34 TSH 13.120 mlU/mL (0.270-4.200) H 07/04/19 11:17 Free T4 0.78 ng/dL (0.76-1.46) 07/05/19 07:36 Urine Color Yellow (Yellow) 07/03/19 15:40 Urine Turbidity Slightly-cloudy (Clear) 07/03/19 15:40 Urine pH 6.0 (5.0-7.0) 07/03/19 15:40 Ur Specific [place] 1.015 (1.003-1.030) 07/03/19 15:40 Urine Protein 30 mg/dl mg/dL (Negative) 07/03/19 15:40 Urine Glucose (UA) Neg mg/dL (Negative) 07/03/19 15:40 Urine Ketones Neg mg/dL (Negative) 07/03/19 15:40 Urine Blood Sm (Negative) 07/03/19 15:40 Urine Nitrite Neg (Negative) 07/03/19 15:40 Urine Bilirubin Neg (Negative) 07/03/19 15:40 Urine Urobilinogen < 2.0 mg/dL (<2.0) 07/03/19 15:40 Ur Leukocyte Esterase Neg (Negative) 07/03/19 15:40 Urine WBC (Auto) 3.0 /HPF (0.0-6.0) 07/03/19 15:40 Urine RBC (Auto) 3.0 /HPF (0.0-6.0) 07/03/19 15:40 U Epithel Cells (Auto) 3.0 /HPF (0-13.0) 07/03/19 15:40 Urine Mucus Few /HPF 07/03/19 15:40 Active Medications - Current Medications Current Medications: Generic Name Dose Route Start Last Admin Trade Name Freq PRN Reason Stop Dose Admin Acetaminophen 650 mg 07/03/19 22:39 Tylenol PO Q4H PRN Pain MILD(1-3)/Fever >100.5/PRESLEY Apixaban 5 mg 07/04/19 10:00 07/05/19 10:30 Eliquis PO 5 mg BID ÁNGEL Administration Protocol Famotidine 40 mg 07/04/19 10:00 07/05/19 10:29 Pepcid PO 40 mg QAM ÁNGEL Administration Finasteride 5 mg 07/04/19 22:00 07/05/19 00:17 Proscar PO 5 mg QHS ÁNGEL Administration Hydromorphone HCl 0.5 mg 07/03/19 22:39 Dilaudid IV Q3H PRN Pain , Severe (7-10) Ceftriaxone Sodium 2 gm in 100 mls @ 200 mls/hr 07/03/19 13:00 07/05/19 10:30 Rocephin/Ns 2 Gm/100 Ml IV 200 mls/hr Q24HR ÁNGEL Administration Protocol Sodium Chloride 1,000 mls @ 75 mls/hr 07/03/19 22:45 07/04/19 15:15 Nacl 0.9% 1000 Ml IV 75 mls/hr DIRECT ÁNGEL Administration Levothyroxine Sodium 150 mcg 07/05/19 06:00 Synthroid PO DAILY@0600 ÁNGEL Levothyroxine Sodium 25 mcg 07/05/19 06:00 Synthroid PO DAILY@0600 [facility] Metoclopramide HCl 5 mg 07/03/19 22:39 Reglan IV Q6H PRN Nausea And Vomiting Ondansetron HCl 4 mg 07/03/19 22:39 Zofran IV Q8H PRN Nausea And Vomiting Oxycodone/Acetaminophen 1 tab 07/03/19 22:39 Percocet 5/325 PO Q6H PRN Pain, Moderate (4-6) Prazosin HCl 1 mg 07/04/19 10:00 07/05/19 10:30 Prazosin PO 1 mg BID ÁNGEL Administration Sodium Chloride 10 ml 07/04/19 10:00 07/05/19 00:20 Sodium Chloride Flush Syringe 10 Ml IV 10 ml BID ÁNGEL Administration Sodium Chloride 10 ml 07/03/19 22:39 Sodium Chloride Flush Syringe 10 Ml IV PRN PRN LINE FLUSH
[2019-07-05] MEDS ORDERED: POTASSIUM CHLORIDE ER 20 MEQ TAB PO ONE (14:25)
[2019-07-06] MEDS: LEVOTHYROXINE 150 MCG TAB PO SCH (05:10)
[2019-07-06] MEDS: LEVOTHYROXINE 25 MCG TAB PO SCH (05:10)
[2019-07-06 06:42] LABS: Calcium 7.3 mg/dL (8.4-10.2)
--- NOTE | 2019-07-06 09:42 | Progress Note ---
Assessment and Plan This is a 79 year old man with bladder cancer who presents with fall, near syncope. # ANMOL on CKD: suspect tubular injury in setting of hypotension, potentially prolonged pre-renal injury with recent N/V. Creatinine improving with support lisa measures, now back to last known outpatient creatinine at 2.4. Several risk factors for CKD including use of chemotherapy (checkpoint inhibitors known for interstitial injury), bladder cancer/obstructive nephropathy. No dialysis needs and suspect he will not need renal replacement therapy, but did discuss that he is at higher risk for kidney failure given number of co-morbidities - daily labs - renally dose meds - avoid nephrotoxins - renal diet - ultrasound reviewed; follows with urology - continue supportive measures with IVF, maintain MAP >70 - ok to replete K prn, expected in tubular recovery # Anemia: last hemoglobin >10. Follows with Dr. Miller # HTN: BP soft, likely contributing to renal injury, has been stable # Syncope: symptoms improved # Lactic Acidosis: improving with IVF. Cultures NGTD. Subjective Date of service: 07/06/19 Interval history: No acute events noted. Feeling well this AM, no dyspnea, no chest pain, no edema noted. Continues to make urine. Objective - Exam Narrative Exam: Constitutional: no acute distress Head: NC/AT Neck: supple Lungs: clear to auscultation CV: RRR, no M/R/G Abdomen: soft, non-tender, bowel sounds present Back: nontender Extremities: no edema, pulses WNL Skin: intact Neuro: no focal deficits, alert and oriented x4 - Vital Signs Vital signs: Vital Signs - 12hr 07/06/19 07/06/19 02:43 08:01 Temperature 98.2 F 98.0 F Pulse Rate 95 H 70 Respiratory 18 18 Rate Blood Pressure 113/44 103/45 O2 Sat by Pulse 96 96 Oximetry - Lab 07/04/19 04:07 07/06/19 06:00 Most recent lab results Calcium 7.3 mg/dL (8.4-10.2) L 07/06/19 06:00 Magnesium 1.90 mg/dL (1.7-2.3) 07/05/19 05:32 Medications & Allergies - Medications Allergies/Adverse Reactions: Allergies kiwi Allergy (Mild, Verified 08/12/15 06:18) TONGUE SWELLING, EYES WATERY Home Medications: Home Medications Medication Instructions Recorded Confirmed Last Taken Type Famotidine [Pepcid] 40 mg PO DAILY 08/12/15 07/03/19 11/16/18 08:00 History 40 mg Furosemide [Lasix TAB] 40 mg PO DAILY 08/12/15 07/03/19 10/17/18 08:00 History 40 mg Levothyroxine [Synthroid] 137 mcg PO DAILY 08/12/15 07/03/19 12/17/18 05:00 History 137 mcg Terazosin (Nf) [Hytrin (Nf)] 5 mg PO QHS 08/12/15 07/03/19 12/17/18 05:00 History 5 mg Rosuvastatin (Nf) [Crestor] 5 mg PO QHS 10/01/18 07/03/19 12/16/18 19:00 History Ergocalciferol (Vitamin D2) 2,000 unit PO DAILY 12/10/18 07/03/19 12/10/18 08:00 History [Vitamin D2] Finasteride [Proscar] 5 mg PO QHS 12/10/18 07/03/19 12/17/18 05:00 History Toprol Xl 50 mg PO DAILY 12/10/18 07/03/19 12/17/18 05:00 History amLODIPine [Norvasc] 5 mg PO DAILY 12/10/18 07/03/19 12/16/18 19:00 History Apixaban [Eliquis] 1 tab PO BID 07/03/19 07/03/19 Unknown History Active Medications: Generic Name Dose Route Start Last Admin Trade Name Freq PRN Reason Stop Dose Admin Acetaminophen 650 mg 07/03/19 22:39 Tylenol PO Q4H PRN Pain MILD(1-3)/Fever >100.5/PRESLEY Apixaban 5 mg 07/04/19 10:00 07/05/19 21:21 Eliquis PO 5 mg BID ÁNGEL Administration Protocol Famotidine 40 mg 07/04/19 10:00 07/05/19 10:29 Pepcid PO 40 mg QAM ÁNGEL Administration Finasteride 5 mg 07/04/19 22:00 07/05/19 21:21 Proscar PO 5 mg QHS ÁNGEL Administration Hydromorphone HCl 0.5 mg 07/03/19 22:39 Dilaudid IV Q3H PRN Pain , Severe (7-10) Ceftriaxone Sodium 2 gm in 100 mls @ 200 mls/hr 07/03/19 13:00 07/05/19 10:30 Rocephin/Ns 2 Gm/100 Ml IV 200 mls/hr Q24HR ÁNGEL Administration Protocol Sodium Chloride 1,000 mls @ 75 mls/hr 07/03/19 22:45 07/05/19 09:03 Nacl 0.9% 1000 Ml IV 75 mls/hr DIRECT ÁNGEL Administration Levothyroxine Sodium 150 mcg 07/05/19 06:00 07/06/19 05:10 Synthroid PO 150 mcg DAILY@0600 ÁNGEL Administration Levothyroxine Sodium 25 mcg 07/05/19 06:00 07/06/19 05:10 Synthroid PO 25 mcg DAILY@0600 ÁNGEL Administration Metoclopramide HCl 5 mg 07/03/19 22:39 Reglan IV Q6H PRN Nausea And Vomiting Ondansetron HCl 4 mg 07/03/19 22:39 Zofran IV Q8H PRN Nausea And Vomiting Oxycodone/Acetaminophen 1 tab 07/03/19 22:39 07/05/19 21:37 Percocet 5/325 PO 1 tab Q6H PRN Administration Pain, Moderate (4-6) Potassium Chloride 40 meq 07/06/19 08:00 K-Dur PO 07/06/19 14:01 Q6H ÁNGEL Prazosin HCl 1 mg 07/04/19 10:00 07/05/19 21:23 Prazosin PO 1 mg BID ÁNGEL Administration Sodium Chloride 10 ml 07/04/19 10:00 07/05/19 21:24 Sodium Chloride Flush Syringe 10 Ml IV 10 ml BID ÁNGEL Administration Sodium Chloride 10 ml 07/03/19 22:39 Sodium Chloride Flush Syringe 10 Ml IV PRN PRN LINE FLUSH
[2019-07-06] MEDS: cefTRIAXone/NS 2 GM/100 ML 2 GM/100 ML BAG IV SCH (10:22)
[2019-07-06] MEDS: SODIUM CHLORIDE 0.9% 1000 ML 1,000 ML IV SCH (10:23)
[2019-07-06] MEDS: POTASSIUM CHLORIDE ER 20 MEQ TAB PO SCH ×2 (10:23→13:32)
[2019-07-06] MEDS: APIXABAN 5 MG TAB PO SCH ×2 (10:23→22:07)
[2019-07-06] MEDS: FAMOTIDINE 20 MG TAB PO SCH (10:23)
--- NOTE | 2019-07-06 15:41 | Progress Note ---
Assessment and Plan Assessment and plan: ANMOL (acute kidney injury) Improving IV fluids for now Nephrology consulted, following Near syncope due to orthostatic hypotension cont IV fluids, hold BP meds Monitor orthostatic vitals q8h ordered for PT eval BPH (benign prostatic hyperplasia): COnt Flomax and Proscar h/o bladder cancer - follows up with Dr Angela LU (hyperlipidemia) Cont statins HTN (hypertension) Hold antihypertensives and resume when BP stable Hypothyroidism (acquired) TSH still elevated Cont Synthyroid and increase the dose Vitamin D deficiency Cont vit D replacement DVT prophylaxis On Eliquis for past DVT 07/11: Creatinine improved 2.2. Will continue iv fluids. I discussed with patient and at bedside. History Interval history: Patient with near syncope feels better No more episodes Hospitalist Physical - Physical exam Narrative exam: General appearance: Present: no acute distress, well-nourished - EENT Eyes: PERRL, EOM intact ENT: hearing intact, clear oral mucosa Ears: bilateral: normal - Neck Neck: supple, normal ROM - Respiratory Respiratory effort: normal Respiratory: bilateral: CTA - Breasts Breasts: normal - Cardiovascular Rhythm: regular Heart Sounds: Present: S1 & S2. Absent: gallop, rub Extremities: pulses intact, No edema, normal color, Full ROM - Gastrointestinal General gastrointestinal: Present: soft, non-tender, non-distended, normal bowel sounds - Integumentary Integumentary: clear, warm, dry - Musculoskeletal Musculoskeletal: 1, strength equal bilaterally - Neurologic Neurologic: moves all extremities - Psychiatric Psychiatric: memory intact, appropriate mood/affect, intact judgment & insight - Constitutional Vitals: Temp Pulse Resp BP Pulse Ox 98.0 F 80 18 134/74 96 07/06/19 08:01 07/06/19 09:32 07/06/19 08:01 07/06/19 09:32 07/06/19 09:32 General appearance: Present: no acute distress, well-nourished Results - Labs CBC & Chem 7: 07/04/19 04:07 07/06/19 06:00 Labs: Laboratory Last Values WBC 7.3 K/mm3 (4.5-11.0) 07/04/19 04:07 RBC 3.75 M/mm3 (3.65-5.03) 07/04/19 04:07 Hgb 10.5 gm/dl (11.8-15.2) L 07/04/19 04:07 Hct 31.7 % (35.5-45.6) L D 07/04/19 04:07 MCV 84 fl (84-94) 07/04/19 04:07 MCH 28 pg (28-32) 07/04/19 04:07 MCHC 33 % (32-34) 07/04/19 04:07 RDW 14.0 % (13.2-15.2) 07/04/19 04:07 Plt Count 182 K/mm3 (140-440) 07/04/19 04:07 Lymph % (Auto) 12.1 % (13.4-35.0) L 07/04/19 04:07 [place] % (Auto) 11.2 % (0.0-7.3) H 07/04/19 04:07 Eos % (Auto) 1.2 % (0.0-4.3) 07/04/19 04:07 Baso % (Auto) 0.4 % (0.0-1.8) 07/04/19 04:07 Lymph # 0.9 K/mm3 (1.2-5.4) L 07/04/19 04:07 [place] # 0.8 K/mm3 (0.0-0.8) 07/04/19 04:07 Eos # 0.1 K/mm3 (0.0-0.4) 07/04/19 04:07 Baso # 0.0 K/mm3 (0.0-0.1) 07/04/19 04:07 Seg Neutrophils % 75.1 % (40.0-70.0) H 07/04/19 04:07 Seg Neutrophils # 5.5 K/mm3 (1.8-7.7) 07/04/19 04:07 PT 14.9 Sec. (12.2-14.9) 07/03/19 11:43 INR 1.15 (0.87-1.13) H 07/03/19 11:43 APTT 23.7 Sec. (24.2-36.6) L 07/03/19 11:43 VBG pH 7.513 (7.320-7.420) H 07/03/19 11:43 Sodium 144 mmol/L (137-145) 07/06/19 06:00 Potassium 3.0 mmol/L (3.6-5.0) L 07/06/19 06:00 Chloride 101.8 mmol/L (98-107) 07/06/19 06:00 Carbon Dioxide 30 mmol/L (22-30) 07/06/19 06:00 Anion Gap 15 mmol/L 07/06/19 06:00 BUN 52 mg/dL (9-20) H 07/06/19 06:00 Creatinine 2.4 mg/dL (0.8-1.5) H 07/06/19 06:00 Estimated GFR 26 ml/min 07/06/19 06:00 BUN/Creatinine Ratio 22 % 07/06/19 06:00 Glucose 138 mg/dL (75-100) H 07/06/19 06:00 Hemoglobin A1c 6.1 % (4-6) H 07/04/19 04:07 Lactic Acid 1.20 mmol/L (0.7-2.0) 07/03/19 20:58 Calcium 7.3 mg/dL (8.4-10.2) L 07/06/19 06:00 Magnesium 1.90 mg/dL (1.7-2.3) 07/05/19 05:32 Total Bilirubin 0.30 mg/dL (0.1-1.2) 07/04/19 04:07 AST 19 units/L (5-40) 07/04/19 04:07 ALT 20 units/L (7-56) 07/04/19 04:07 Alkaline Phosphatase 124 units/L (35-129) 07/04/19 04:07 Troponin T 0.085 ng/mL (0.00-0.029) H 07/03/19 14:47 Total Protein 5.2 g/dL (6.3-8.2) L 07/04/19 04:07 Albumin 3.0 g/dL (3.9-5) L 07/04/19 04:07 Albumin/Globulin Ratio 1.4 % 07/04/19 04:07 Triglycerides 174 mg/dL (2-149) H 07/03/19 12:34 Cholesterol 104 mg/dL (50-199) 07/03/19 12:34 LDL Cholesterol Direct 47 mg/dL (50-130) L 07/03/19 12:34 HDL Cholesterol 28 mg/dL (40-59) L 07/03/19 12:34 Cholesterol/HDL Ratio 3.71 % 07/03/19 12:34 TSH 13.120 mlU/mL (0.270-4.200) H 07/04/19 11:17 Free T4 0.78 ng/dL (0.76-1.46) 07/05/19 07:36 Urine Color Yellow (Yellow) 07/03/19 15:40 Urine Turbidity Slightly-cloudy (Clear) 07/03/19 15:40 Urine pH 6.0 (5.0-7.0) 07/03/19 15:40 Ur Specific [place] 1.015 (1.003-1.030) 07/03/19 15:40 Urine Protein 30 mg/dl mg/dL (Negative) 07/03/19 15:40 Urine Glucose (UA) Neg mg/dL (Negative) 07/03/19 15:40 Urine Ketones Neg mg/dL (Negative) 07/03/19 15:40 Urine Blood Sm (Negative) 07/03/19 15:40 Urine Nitrite Neg (Negative) 07/03/19 15:40 Urine Bilirubin Neg (Negative) 07/03/19 15:40 Urine Urobilinogen < 2.0 mg/dL (<2.0) 07/03/19 15:40 Ur Leukocyte Esterase Neg (Negative) 07/03/19 15:40 Urine WBC (Auto) 3.0 /HPF (0.0-6.0) 07/03/19 15:40 Urine RBC (Auto) 3.0 /HPF (0.0-6.0) 07/03/19 15:40 U Epithel Cells (Auto) 3.0 /HPF (0-13.0) 07/03/19 15:40 Urine Mucus Few /HPF 07/03/19 15:40 Active Medications - Current Medications Current Medications: Generic Name Dose Route Start Last Admin Trade Name Freq PRN Reason Stop Dose Admin Acetaminophen 650 mg 07/03/19 22:39 Tylenol PO Q4H PRN Pain MILD(1-3)/Fever >100.5/[place]LEY Apixaban 5 mg 07/04/19 10:00 07/06/19 10:23 Eliquis PO 5 mg BID ÁNGEL Administration Protocol Famotidine 40 mg 07/04/19 10:00 07/06/19 10:23 Pepcid PO 40 mg QAM ÁNGEL Administration Finasteride 5 mg 07/04/19 22:00 07/05/19 21:21 Proscar PO 5 mg QHS ÁNGEL Administration Hydromorphone HCl 0.5 mg 07/03/19 22:39 Dilaudid IV Q3H PRN Pain , Severe (7-10) Ceftriaxone Sodium 2 gm in 100 mls @ 200 mls/hr 07/03/19 13:00 07/06/19 10:22 Rocephin/Ns 2 Gm/100 Ml IV 200 mls/hr Q24HR ÁNGEL Administration Protocol Sodium Chloride 1,000 mls @ 75 mls/hr 07/03/19 22:45 07/06/19 10:23 Nacl 0.9% 1000 Ml IV 75 mls/hr DIRECT ÁNGEL Administration Levothyroxine Sodium 150 mcg 07/05/19 06:00 07/06/19 05:10 Synthroid PO 150 mcg DAILY@0600 ÁNGEL Administration Levothyroxine Sodium 25 mcg 07/05/19 06:00 07/06/19 05:10 Synthroid PO 25 mcg DAILY@0600 ÁNGEL Administration Metoclopramide HCl 5 mg 07/03/19 22:39 Reglan IV Q6H PRN Nausea And Vomiting Ondansetron HCl 4 mg 07/03/19 22:39 Zofran IV Q8H PRN Nausea And Vomiting Oxycodone/Acetaminophen 1 tab 07/03/19 22:39 07/05/19 21:37 Percocet 5/325 PO 1 tab Q6H PRN Administration Pain, Moderate (4-6) Sodium Chloride 10 ml 07/04/19 10:00 07/06/19 10:23 Sodium Chloride Flush Syringe 10 Ml IV 10 ml BID ÁNGEL Administration Sodium Chloride 10 ml 07/03/19 22:39 Sodium Chloride Flush Syringe 10 Ml IV PRN PRN LINE FLUSH
[2019-07-06] MEDS: FINASTERIDE 5 MG TAB PO SCH (22:06)
[2019-07-06] MEDS: ONDANSETRON 4 MG/2 ML INJ IV PRN (23:14)
[2019-07-07] MEDS: SODIUM CHLORIDE 0.9% 1000 ML 1,000 ML IV SCH ×2 (00:08→10:24)
[2019-07-07 05:27] LABS: Calcium 7.1 mg/dL (8.4-10.2)
[2019-07-07] MEDS: LEVOTHYROXINE 25 MCG TAB PO SCH (06:53)
[2019-07-07] MEDS: LEVOTHYROXINE 150 MCG TAB PO SCH (06:53)
[2019-07-07] MEDS: cefTRIAXone/NS 2 GM/100 ML 2 GM/100 ML BAG IV SCH (10:19)
[2019-07-07] MEDS: APIXABAN 5 MG TAB PO SCH ×2 (10:19→22:33)
[2019-07-07] MEDS: FAMOTIDINE 20 MG TAB PO SCH (10:20)
--- NOTE | 2019-07-07 11:00 | Discharge Summary ---
Providers - Providers Date of Admission: 07/04/19 14:00 Date of discharge: 07/07/19 Attending physician: MARK UMANZOR 07/04/19 03:54 Consult to Wound/ET Nurse [CONS] Routine Reason For Exam: wound eval 07/04/19 07:35 Physical Therapy Evaluation and Treat [CONS] Routine Comment: Reason For Exam: weakness 07/04/19 10:07 Consult to Physician [CONS] Routine Comment: Consulting Provider: TY ZAVALA Physician Instructions: Reason For Exam: CKD Primary care physician: [facility] Hospitalization Condition: Stable Disposition: DC-30 STILL A PATIENT Core Measure Documentation - Palliative Care Palliative Care/ Comfort Measures: Not Applicable Exam - Constitutional Vitals: Temp Pulse Resp BP Pulse Ox 97.7 F 91 H 20 98/53 95 07/07/19 07:35 07/07/19 07:35 07/07/19 07:35 07/07/19 07:35 07/07/19 07:35 Plan Activity: advance as tolerated Diet: low fat, low cholesterol, low salt, diabetic Plan of Treatment: 1.Follow up with PCP in 1 week. 2.Follow up with Dr. Zavala, Nephrology in 1 week 3.Norvasc, lasix,Hytrin,metoprolol put on hold to be resumed by Physician when BP allows. Follow up with: PRIMARY CAREMD [Primary Care Provider] - 7 Days
[2019-07-07] MEDS: METOCLOPRAMIDE 10 MG/2 ML INJ IV PRN (11:51)
[2019-07-07] MEDS ORDERED: SODIUM CHLORIDE 0.9% 500 ML 500 ML IV ONE (12:12)
--- NOTE | 2019-07-07 12:12 | Progress Note ---
Assessment and Plan Assessment and plan: ANMOL (acute kidney injury) on CKD Improving Continue iv fluids Nephrology consulted, following Near syncope due to orthostatic hypotension cont IV fluids, hold BP meds Monitor orthostatic vitals q8h ordered for PT eval Still orthostatic today 128/69 on lying and 95/59 on sitting BPH (benign prostatic hyperplasia): COnt Flomax and Proscar h/o bladder cancer - follows up with Dr Angela LU (hyperlipidemia) Cont statins HTN (hypertension) Hold antihypertensives and resume when BP stable Hypothyroidism (acquired) TSH still elevated Cont Synthyroid Vitamin D deficiency Cont vit D replacement DVT prophylaxis On Eliquis for past DVT 07/06/19: Creatinine improved 2.2. Will continue iv fluids. I discussed with patient and at bedside. 07/07/19: Patient complains of nausea. He still has orthostatic hypotension, therefore discharge cancelled. History Interval history: Patient with near syncope nausea BP drop on getting up Hospitalist Physical - Physical exam Narrative exam: General appearance: Present: no acute distress, well-nourished - EENT Eyes: PERRL, EOM intact ENT: hearing intact, clear oral mucosa Ears: bilateral: normal - Neck Neck: supple, normal ROM - Respiratory Respiratory effort: normal Respiratory: bilateral: CTA - Breasts Breasts: normal - Cardiovascular Rhythm: regular Heart Sounds: Present: S1 & S2. Absent: gallop, rub Extremities: pulses intact, No edema, normal color, Full ROM - Gastrointestinal General gastrointestinal: Present: soft, non-tender, non-distended, normal bowel sounds - Integumentary Integumentary: clear, warm, dry - Musculoskeletal Musculoskeletal: 1, strength equal bilaterally - Neurologic Neurologic: moves all extremities - Psychiatric Psychiatric: memory intact, appropriate mood/affect, intact judgment & insight - Constitutional Vitals: Temp Pulse Resp BP Pulse Ox 97.7 F 76 20 128/69 94 07/07/19 07:35 07/07/19 11:02 07/07/19 07:35 07/07/19 11:02 07/07/19 11:02 General appearance: Present: no acute distress, well-nourished Results - Labs CBC & Chem 7: 07/04/19 04:07 07/07/19 05:07 Labs: Laboratory Last Values WBC 7.3 K/mm3 (4.5-11.0) 07/04/19 04:07 RBC 3.75 M/mm3 (3.65-5.03) 07/04/19 04:07 Hgb 10.5 gm/dl (11.8-15.2) L 07/04/19 04:07 Hct 31.7 % (35.5-45.6) L D 07/04/19 04:07 MCV 84 fl (84-94) 07/04/19 04:07 MCH 28 pg (28-32) 07/04/19 04:07 MCHC 33 % (32-34) 07/04/19 04:07 RDW 14.0 % (13.2-15.2) 07/04/19 04:07 Plt Count 182 K/mm3 (140-440) 07/04/19 04:07 Lymph % (Auto) 12.1 % (13.4-35.0) L 07/04/19 04:07 Hughes % (Auto) 11.2 % (0.0-7.3) H 07/04/19 04:07 Eos % (Auto) 1.2 % (0.0-4.3) 07/04/19 04:07 Baso % (Auto) 0.4 % (0.0-1.8) 07/04/19 04:07 Lymph # 0.9 K/mm3 (1.2-5.4) L 07/04/19 04:07 Hughes # 0.8 K/mm3 (0.0-0.8) 07/04/19 04:07 Eos # 0.1 K/mm3 (0.0-0.4) 07/04/19 04:07 Baso # 0.0 K/mm3 (0.0-0.1) 07/04/19 04:07 Seg Neutrophils % 75.1 % (40.0-70.0) H 07/04/19 04:07 Seg Neutrophils # 5.5 K/mm3 (1.8-7.7) 07/04/19 04:07 PT 14.9 Sec. (12.2-14.9) 07/03/19 11:43 INR 1.15 (0.87-1.13) H 07/03/19 11:43 APTT 23.7 Sec. (24.2-36.6) L 07/03/19 11:43 VBG pH 7.513 (7.320-7.420) H 07/03/19 11:43 Sodium 144 mmol/L (137-145) 07/07/19 05:07 Potassium 3.8 mmol/L (3.6-5.0) D 07/07/19 05:07 Chloride 103.5 mmol/L (98-107) 07/07/19 05:07 Carbon Dioxide 31 mmol/L (22-30) H 07/07/19 05:07 Anion Gap 13 mmol/L 07/07/19 05:07 BUN 37 mg/dL (9-20) H 07/07/19 05:07 Creatinine 2.0 mg/dL (0.8-1.5) H 07/07/19 05:07 Estimated GFR 32 ml/min 07/07/19 05:07 BUN/Creatinine Ratio 19 % 07/07/19 05:07 Glucose 128 mg/dL (75-100) H 07/07/19 05:07 Hemoglobin A1c 6.1 % (4-6) H 07/04/19 04:07 Lactic Acid 1.20 mmol/L (0.7-2.0) 07/03/19 20:58 Calcium 7.1 mg/dL (8.4-10.2) L 07/07/19 05:07 Magnesium 1.90 mg/dL (1.7-2.3) 07/05/19 05:32 Total Bilirubin 0.30 mg/dL (0.1-1.2) 07/04/19 04:07 AST 19 units/L (5-40) 07/04/19 04:07 ALT 20 units/L (7-56) 07/04/19 04:07 Alkaline Phosphatase 124 units/L (35-129) 07/04/19 04:07 Troponin T 0.085 ng/mL (0.00-0.029) H 07/03/19 14:47 Total Protein 5.2 g/dL (6.3-8.2) L 07/04/19 04:07 Albumin 3.0 g/dL (3.9-5) L 07/04/19 04:07 Albumin/Globulin Ratio 1.4 % 07/04/19 04:07 Triglycerides 174 mg/dL (2-149) H 07/03/19 12:34 Cholesterol 104 mg/dL (50-199) 07/03/19 12:34 LDL Cholesterol Direct 47 mg/dL (50-130) L 07/03/19 12:34 HDL Cholesterol 28 mg/dL (40-59) L 07/03/19 12:34 Cholesterol/HDL Ratio 3.71 % 07/03/19 12:34 TSH 13.120 mlU/mL (0.270-4.200) H 07/04/19 11:17 Free T4 0.78 ng/dL (0.76-1.46) 07/05/19 07:36 Urine Color Yellow (Yellow) 07/03/19 15:40 Urine Turbidity Slightly-cloudy (Clear) 07/03/19 15:40 Urine pH 6.0 (5.0-7.0) 07/03/19 15:40 Ur Specific [place] 1.015 (1.003-1.030) 07/03/19 15:40 Urine Protein 30 mg/dl mg/dL (Negative) 07/03/19 15:40 Urine Glucose (UA) Neg mg/dL (Negative) 07/03/19 15:40 Urine Ketones Neg mg/dL (Negative) 07/03/19 15:40 Urine Blood Sm (Negative) 07/03/19 15:40 Urine Nitrite Neg (Negative) 07/03/19 15:40 Urine Bilirubin Neg (Negative) 07/03/19 15:40 Urine Urobilinogen < 2.0 mg/dL (<2.0) 07/03/19 15:40 Ur Leukocyte Esterase Neg (Negative) 07/03/19 15:40 Urine WBC (Auto) 3.0 /HPF (0.0-6.0) 07/03/19 15:40 Urine RBC (Auto) 3.0 /HPF (0.0-6.0) 07/03/19 15:40 U Epithel Cells (Auto) 3.0 /HPF (0-13.0) 07/03/19 15:40 Urine Mucus Few /HPF 07/03/19 15:40 Active Medications - Current Medications Current Medications: Generic Name Dose Route Start Last Admin Trade Name Freq PRN Reason Stop Dose Admin Acetaminophen 650 mg 07/03/19 22:39 Tylenol PO Q4H PRN Pain MILD(1-3)/Fever >100.5/[place]LEY Apixaban 5 mg 07/04/19 10:00 07/07/19 10:19 Eliquis PO 5 mg BID ÁNGEL Administration Protocol Famotidine 40 mg 07/04/19 10:00 07/07/19 10:20 Pepcid PO 40 mg QAM ÁNGEL Administration Finasteride 5 mg 07/04/19 22:00 07/06/19 22:06 Proscar PO 5 mg QHS ÁNGEL Administration Hydromorphone HCl 0.5 mg 07/03/19 22:39 Dilaudid IV Q3H PRN Pain , Severe (7-10) Ceftriaxone Sodium 2 gm in 100 mls @ 200 mls/hr 07/03/19 13:00 07/07/19 10:19 Rocephin/Ns 2 Gm/100 Ml IV 200 mls/hr Q24HR ÁNGEL Administration Protocol Sodium Chloride 1,000 mls @ 75 mls/hr 07/03/19 22:45 07/07/19 10:24 Nacl 0.9% 1000 Ml IV 75 mls/hr DIRECT ÁNGEL Administration Levothyroxine Sodium 150 mcg 07/05/19 06:00 07/07/19 06:53 Synthroid PO 150 mcg DAILY@0600 ÁNGEL Administration Levothyroxine Sodium 25 mcg 07/05/19 06:00 07/07/19 06:53 Synthroid PO 25 mcg DAILY@0600 [facility] Administration Metoclopramide HCl 5 mg 07/03/19 22:39 07/07/19 11:51 Reglan IV 5 mg Q6H PRN Administration Nausea And Vomiting Ondansetron HCl 4 mg 07/03/19 22:39 07/06/19 23:14 Zofran IV 4 mg Q8H PRN Administration Nausea And Vomiting Oxycodone/Acetaminophen 1 tab 07/03/19 22:39 07/05/19 21:37 Percocet 5/325 PO 1 tab Q6H PRN Administration Pain, Moderate (4-6) Sodium Chloride 10 ml 07/04/19 10:00 07/07/19 10:20 Sodium Chloride Flush Syringe 10 Ml IV 10 ml BID ÁNGEL Administration Sodium Chloride 10 ml 07/03/19 22:39 Sodium Chloride Flush Syringe 10 Ml IV PRN PRN LINE FLUSH
--- NOTE | 2019-07-07 13:42 | Progress Note ---
Assessment and Plan This is a 79 year old man with bladder cancer who presents with fall, near syncope. # ANMOL on CKD: suspect tubular injury in setting of hypotension, potentially prolonged pre-renal injury with recent N/V. Creatinine improving with support lisa measures, now better than last known outpatient creatinine at 2.4->2.0. Several risk factors for CKD including use of chemotherapy (checkpoint inhibitors known for interstitial injury), bladder cancer/obstructive nephropathy. No dialysis needs and suspect he will not need renal replacement therapy, but did discuss that he is at higher risk for kidney failure given number of co-morbidities - has outpatient appt with Dr. Lopez on 3/3 - daily labs - renally dose meds - avoid nephrotoxins - renal diet - ultrasound reviewed; follows with urology - continue supportive measures with IVF, maintain MAP >70 # Anemia: last hemoglobin >10. Follows with Dr. Miller # HTN: BP soft, likely contributing to renal injury, has been stable now # Syncope: symptoms improved # Lactic Acidosis: improving with IVF. Cultures NGTD. Subjective Date of service: 07/07/19 Interval history: No acute events noted. Feeling well this AM, no dyspnea, no chest pain, no edema noted. Continues to make urine. Spoke with as well. Objective - Exam Narrative Exam: Constitutional: no acute distress Head: NC/AT Neck: supple Lungs: clear to auscultation CV: RRR, no M/R/G Abdomen: soft, non-tender, bowel sounds present Back: nontender Extremities: no edema, pulses WNL Skin: intact Neuro: no focal deficits, alert and oriented x4 - Vital Signs Vital signs: Vital Signs - 12hr 07/07/19 07/07/19 07/07/19 03:01 07:35 11:02 Temperature 98.0 F 97.7 F Pulse Rate 73 91 H 76 Respiratory 20 20 Rate Blood Pressure 102/60 98/53 128/69 O2 Sat by Pulse 97 95 94 Oximetry - Lab 07/04/19 04:07 07/07/19 05:07 Most recent lab results Calcium 7.1 mg/dL (8.4-10.2) L 07/07/19 05:07 Magnesium 1.90 mg/dL (1.7-2.3) 07/05/19 05:32 Medications & Allergies - Medications Allergies/Adverse Reactions: Allergies kiwi Allergy (Mild, Verified 08/12/15 06:18) TONGUE SWELLING, EYES WATERY Home Medications: Home Medications Medication Instructions Recorded Confirmed Last Taken Type Famotidine [Pepcid] 40 mg PO DAILY 08/12/15 07/03/19 11/16/18 08:00 History 40 mg Levothyroxine [Synthroid] 137 mcg PO DAILY 08/12/15 07/03/19 12/17/18 05:00 History 137 mcg Rosuvastatin (Nf) [Crestor] 5 mg PO QHS 10/01/18 07/03/19 12/16/18 19:00 History Ergocalciferol (Vitamin D2) 2,000 unit PO DAILY 12/10/18 07/03/19 12/10/18 08:00 History [Vitamin D2] Finasteride [Proscar] 5 mg PO QHS 12/10/18 07/03/19 12/17/18 05:00 History Apixaban [Eliquis] 1 tab PO BID 07/03/19 07/03/19 Unknown History Active Medications: Generic Name Dose Route Start Last Admin Trade Name Freq PRN Reason Stop Dose Admin Acetaminophen 650 mg 07/03/19 22:39 Tylenol PO Q4H PRN Pain MILD(1-3)/Fever >100.5/[place] Apixaban 5 mg 07/04/19 10:00 07/07/19 10:19 Eliquis PO 5 mg BID ÁNGEL Administration Protocol Famotidine 40 mg 07/04/19 10:00 07/07/19 10:20 Pepcid PO 40 mg QAM ÁNGEL Administration Finasteride 5 mg 07/04/19 22:00 07/06/19 22:06 Proscar PO 5 mg QHS ÁNGEL Administration Hydromorphone HCl 0.5 mg 07/03/19 22:39 Dilaudid IV Q3H PRN Pain , Severe (7-10) Ceftriaxone Sodium 2 gm in 100 mls @ 200 mls/hr 07/03/19 13:00 07/07/19 10:19 Rocephin/Ns 2 Gm/100 Ml IV 200 mls/hr Q24HR ÁNGEL Administration Protocol Sodium Chloride 1,000 mls @ 100 mls/hr 07/03/19 22:45 07/07/19 10:24 Nacl 0.9% 1000 Ml IV 75 mls/hr DIRECT ÁNGEL Administration Levothyroxine Sodium 150 mcg 07/05/19 06:00 07/07/19 06:53 Synthroid PO 150 mcg DAILY@0600 ÁNGEL Administration Levothyroxine Sodium 25 mcg 07/05/19 06:00 07/07/19 06:53 Synthroid PO 25 mcg DAILY@0600 ÁNGEL Administration Metoclopramide HCl 5 mg 07/03/19 22:39 07/07/19 11:51 Reglan IV 5 mg Q6H PRN Administration Nausea And Vomiting Ondansetron HCl 4 mg 07/03/19 22:39 07/06/19 23:14 Zofran IV 4 mg Q8H PRN Administration Nausea And Vomiting Oxycodone/Acetaminophen 1 tab 07/03/19 22:39 07/05/19 21:37 Percocet 5/325 PO 1 tab Q6H PRN Administration Pain, Moderate (4-6) Sodium Chloride 10 ml 07/04/19 10:00 07/07/19 10:20 Sodium Chloride Flush Syringe 10 Ml IV 10 ml BID ÁNGEL Administration Sodium Chloride 10 ml 07/03/19 22:39 Sodium Chloride Flush Syringe 10 Ml IV PRN PRN LINE FLUSH
[2019-07-07] MEDS: FINASTERIDE 5 MG TAB PO SCH (22:33)
[2019-07-08] MEDS: SODIUM CHLORIDE 0.9% 1000 ML 1,000 ML IV SCH (02:18)
[2019-07-08 05:30] LABS: Calcium 7.1 mg/dL (8.4-10.2)
[2019-07-08] MEDS: LEVOTHYROXINE 150 MCG TAB PO SCH (06:17)
[2019-07-08] MEDS: LEVOTHYROXINE 25 MCG TAB PO SCH (06:17)
[2019-07-08] MEDS: METOCLOPRAMIDE 10 MG/2 ML INJ IV PRN (06:24)
[2019-07-08] MEDS: MIDODRINE 5 MG TAB PO SCH ×3 (08:55→17:12)
[2019-07-08] MEDS: ONDANSETRON 4 MG/2 ML INJ IV PRN (10:01)
[2019-07-08] MEDS: cefTRIAXone/NS 2 GM/100 ML 2 GM/100 ML BAG IV SCH (10:03)
[2019-07-08] MEDS: FAMOTIDINE 20 MG TAB PO SCH (10:35)
[2019-07-08] MEDS: APIXABAN 5 MG TAB PO SCH ×2 (10:35→22:14)
--- NOTE | 2019-07-08 12:00 | Progress Note ---
Assessment and Plan - Patient Problems (1) ANMOL (acute kidney injury) Current Visit: Yes Status: Acute Plan to address problem: Acute kidney injury Baseline creatinine 1.4 Continue intravenous fluids Renal function improving current creatinine is 1.7 Avoid nephro toxic medications (2) Bladder cancer Current Visit: Yes Status: Acute Plan to address problem: Bladder cancer Renal ultrasound with evidence of hydronephrosis Continue follow-up with urology (3) Diabetes Current Visit: No Status: Acute Plan to address problem: Diabetes Monitor fingersticks Continue medications (4) HTN (hypertension) Current Visit: No Status: Chronic Qualifiers: Hypertension type: essential hypertension Qualified Code(s): I10 - Essential (primary) hypertension Plan to address problem: Hypertension controlled Continue current medications Subjective Interval history: 79-year-old gentleman with chronic kidney disease admitted with complaints of dizziness lightheadedness found to have acute kidney injury feels much better Denies any shortness of breath denies any orthopnea or PND Objective - Vital Signs Vital signs: Vital Signs - 12hr 07/08/19 07/08/19 07/08/19 02:18 07:38 10:00 Temperature 97.6 F 98.2 F Pulse Rate 62 98 H Pulse Rate [ 98 H Apical] Respiratory 20 20 20 Rate Blood Pressure 117/68 134/67 O2 Sat by Pulse 95 94 94 Oximetry - General Appearance General appearance: well-developed, well-nourished EENT: ATNC, PERRL Neck: no JVD Respiratory: Present: Clear to Ascultation Cardiology: regular, S1S2 Gastrointestinal: normal, normoactive bowel sounds Integumentary: no rash Neurologic: alert and oriented x3 Psychiatric: mood/affect appropriate - Lab 07/04/19 04:07 07/08/19 04:00 Most recent lab results Calcium 7.1 mg/dL (8.4-10.2) L 07/08/19 04:00 Magnesium 1.90 mg/dL (1.7-2.3) 07/05/19 05:32 - Imaging Chest x-ray: image reviewed (I reviewed chest x-ray without pulmonary edema) Medications & Allergies - Medications Allergies/Adverse Reactions: Allergies kiwi Allergy (Mild, Verified 08/12/15 06:18) TONGUE SWELLING, EYES WATERY Home Medications: Home Medications Medication Instructions Recorded Confirmed Last Taken Type Famotidine [Pepcid] 40 mg PO DAILY 08/12/15 07/03/19 11/16/18 08:00 History 40 mg Levothyroxine [Synthroid] 137 mcg PO DAILY 08/12/15 07/03/19 12/17/18 05:00 History 137 mcg Rosuvastatin (Nf) [Crestor] 5 mg PO QHS 10/01/18 07/03/19 12/16/18 19:00 History Ergocalciferol (Vitamin D2) 2,000 unit PO DAILY 12/10/18 07/03/19 12/10/18 08:00 History [Vitamin D2] Finasteride [Proscar] 5 mg PO QHS 12/10/18 07/03/19 12/17/18 05:00 History Apixaban [Eliquis] 1 tab PO BID 07/03/19 07/03/19 Unknown History Active Medications: Generic Name Dose Route Start Last Admin Trade Name Freq PRN Reason Stop Dose Admin Acetaminophen 650 mg 07/03/19 22:39 Tylenol PO Q4H PRN Pain MILD(1-3)/Fever >100.5/[place] Apixaban 5 mg 07/04/19 10:00 07/08/19 10:35 Eliquis PO 5 mg BID ÁNGEL Administration Protocol Famotidine 40 mg 07/04/19 10:00 07/08/19 10:35 Pepcid PO 40 mg QAM ÁNGEL Administration Finasteride 5 mg 07/04/19 22:00 07/07/19 22:33 Proscar PO 5 mg QHS ÁNGEL Administration Hydromorphone HCl 0.5 mg 07/03/19 22:39 Dilaudid IV Q3H PRN Pain , Severe (7-10) Ceftriaxone Sodium 2 gm in 100 mls @ 200 mls/hr 07/03/19 13:00 07/08/19 10:03 Rocephin/Ns 2 Gm/100 Ml IV 200 mls/hr Q24HR ÁNGEL Administration Protocol Sodium Chloride 1,000 mls @ 75 mls/hr 07/03/19 22:45 07/08/19 02:18 Nacl 0.9% 1000 Ml IV 75 mls/hr DIRECT ÁNGEL Administration Levothyroxine Sodium 150 mcg 07/05/19 06:00 07/08/19 06:17 Synthroid PO Not Given DAILY@0600 [facility] Levothyroxine Sodium 25 mcg 07/05/19 06:00 07/08/19 06:17 Synthroid PO Not Given DAILY@0600 ÁNGEL Metoclopramide HCl 5 mg 07/03/19 22:39 07/08/19 06:24 Reglan IV 5 mg Q6H PRN Administration Nausea And Vomiting Midodrine 5 mg 07/08/19 08:00 07/08/19 08:55 Proamatine PO 5 mg TID@0800,1200,1600 ÁNGEL Administration Ondansetron HCl 4 mg 07/03/19 22:39 07/08/19 10:01 Zofran IV 4 mg Q8H PRN Administration Nausea And Vomiting Oxycodone/Acetaminophen 1 tab 07/03/19 22:39 07/05/19 21:37 Percocet 5/325 PO 1 tab Q6H PRN Administration Pain, Moderate (4-6) Sodium Chloride 10 ml 07/04/19 10:00 07/08/19 10:02 Sodium Chloride Flush Syringe 10 Ml IV 10 ml BID ÁNGEL Administration Sodium Chloride 10 ml 07/03/19 22:39 Sodium Chloride Flush Syringe 10 Ml IV PRN PRN LINE FLUSH
--- NOTE | 2019-07-08 14:47 | Progress Note ---
Assessment and Plan Assessment and plan: ANMOL (acute kidney injury) on CKD Improving Continue iv fluids Nephrology consulted, following Near syncope due to orthostatic hypotension cont IV fluids, hold BP meds Monitor orthostatic vitals q8h ordered for PT eval Still orthostatic 07/07 BP 128/69 on lying and 95/59 on sitting BPH (benign prostatic hyperplasia): COnt Flomax and Proscar h/o bladder cancer - follows up with Dr Angela LU (hyperlipidemia) Cont statins HTN (hypertension) Hold antihypertensives and resume when BP stable Hypothyroidism (acquired) TSH still elevated Cont Synthyroid Bilateral leg edema Decrease NS to 50ml/hr Vitamin D deficiency Cont vit D replacement DVT prophylaxis On Eliquis for past DVT 07/06/19: Creatinine improved 2.2. Will continue iv fluids. I discussed with patient and at bedside. 07/07/19: Patient complains of nausea. He still has orthostatic hypotension, therefore discharge cancelled. NS increased to 100ml/hr 07/08/18: Patient still orthostatic. Has leg edema. Add Midodrine. Hopefully dc home in 1-2 days when orthostatis resolves. All antihypertensives discontinued. History Interval history: Patient with near syncope nausea BP still drops on getting up Bilateral leg edema Hospitalist Physical - Physical exam Narrative exam: General appearance: Present: no acute distress, well-nourished - EENT Eyes: PERRL, EOM intact ENT: hearing intact, clear oral mucosa Ears: bilateral: normal - Neck Neck: supple, normal ROM - Respiratory Respiratory effort: normal Respiratory: bilateral: CTA - Breasts Breasts: normal - Cardiovascular Rhythm: regular Heart Sounds: Present: S1 & S2. Absent: gallop, rub Extremities: pulses intact, No edema, normal color, Full ROM - Gastrointestinal General gastrointestinal: Present: soft, non-tender, non-distended, normal bowel sounds - Integumentary Integumentary: clear, warm, dry - Musculoskeletal Musculoskeletal: 1, strength equal bilaterally - Neurologic Neurologic: moves all extremities - Psychiatric Psychiatric: memory intact, appropriate mood/affect, intact judgment & insight - Constitutional Vitals: Temp Pulse Resp BP Pulse Ox 98.2 F 98 H 20 134/67 94 07/08/19 07:38 07/08/19 10:00 07/08/19 10:00 07/08/19 07:38 07/08/19 10:00 General appearance: Present: no acute distress, well-nourished Results - Labs CBC & Chem 7: 07/04/19 04:07 07/08/19 04:00 Labs: Laboratory Last Values WBC 7.3 K/mm3 (4.5-11.0) 07/04/19 04:07 RBC 3.75 M/mm3 (3.65-5.03) 07/04/19 04:07 Hgb 10.5 gm/dl (11.8-15.2) L 07/04/19 04:07 Hct 31.7 % (35.5-45.6) L D 07/04/19 04:07 MCV 84 fl (84-94) 07/04/19 04:07 MCH 28 pg (28-32) 07/04/19 04:07 MCHC 33 % (32-34) 07/04/19 04:07 RDW 14.0 % (13.2-15.2) 07/04/19 04:07 Plt Count 182 K/mm3 (140-440) 07/04/19 04:07 Lymph % (Auto) 12.1 % (13.4-35.0) L 07/04/19 04:07 [place] % (Auto) 11.2 % (0.0-7.3) H 07/04/19 04:07 Eos % (Auto) 1.2 % (0.0-4.3) 07/04/19 04:07 Baso % (Auto) 0.4 % (0.0-1.8) 07/04/19 04:07 Lymph # 0.9 K/mm3 (1.2-5.4) L 07/04/19 04:07 [place] # 0.8 K/mm3 (0.0-0.8) 07/04/19 04:07 Eos # 0.1 K/mm3 (0.0-0.4) 07/04/19 04:07 Baso # 0.0 K/mm3 (0.0-0.1) 07/04/19 04:07 Seg Neutrophils % 75.1 % (40.0-70.0) H 07/04/19 04:07 Seg Neutrophils # 5.5 K/mm3 (1.8-7.7) 07/04/19 04:07 PT 14.9 Sec. (12.2-14.9) 07/03/19 11:43 INR 1.15 (0.87-1.13) H 07/03/19 11:43 APTT 23.7 Sec. (24.2-36.6) L 07/03/19 11:43 VBG pH 7.513 (7.320-7.420) H 07/03/19 11:43 Sodium 145 mmol/L (137-145) 07/08/19 04:00 Potassium 4.0 mmol/L (3.6-5.0) 07/08/19 04:00 Chloride 104.1 mmol/L (98-107) 07/08/19 04:00 Carbon Dioxide 25 mmol/L (22-30) 07/08/19 04:00 Anion Gap 20 mmol/L 07/08/19 04:00 BUN 32 mg/dL (9-20) H 07/08/19 04:00 Creatinine 1.7 mg/dL (0.8-1.5) H 07/08/19 04:00 Estimated GFR 39 ml/min 07/08/19 04:00 BUN/Creatinine Ratio 19 % 07/08/19 04:00 Glucose 94 mg/dL (75-100) 07/08/19 04:00 Hemoglobin A1c 6.1 % (4-6) H 07/04/19 04:07 Lactic Acid 1.20 mmol/L (0.7-2.0) 07/03/19 20:58 Calcium 7.1 mg/dL (8.4-10.2) L 07/08/19 04:00 Magnesium 1.90 mg/dL (1.7-2.3) 07/05/19 05:32 Total Bilirubin 0.30 mg/dL (0.1-1.2) 07/04/19 04:07 AST 19 units/L (5-40) 07/04/19 04:07 ALT 20 units/L (7-56) 07/04/19 04:07 Alkaline Phosphatase 124 units/L (35-129) 07/04/19 04:07 Troponin T 0.085 ng/mL (0.00-0.029) H 07/03/19 14:47 Total Protein 5.2 g/dL (6.3-8.2) L 07/04/19 04:07 Albumin 3.0 g/dL (3.9-5) L 07/04/19 04:07 Albumin/Globulin Ratio 1.4 % 07/04/19 04:07 Triglycerides 174 mg/dL (2-149) H 07/03/19 12:34 Cholesterol 104 mg/dL (50-199) 07/03/19 12:34 LDL Cholesterol Direct 47 mg/dL (50-130) L 07/03/19 12:34 HDL Cholesterol 28 mg/dL (40-59) L 07/03/19 12:34 Cholesterol/HDL Ratio 3.71 % 07/03/19 12:34 TSH 13.120 mlU/mL (0.270-4.200) H 07/04/19 11:17 Free T4 0.78 ng/dL (0.76-1.46) 07/05/19 07:36 Urine Color Yellow (Yellow) 07/03/19 15:40 Urine Turbidity Slightly-cloudy (Clear) 07/03/19 15:40 Urine pH 6.0 (5.0-7.0) 07/03/19 15:40 Ur Specific [place] 1.015 (1.003-1.030) 07/03/19 15:40 Urine Protein 30 mg/dl mg/dL (Negative) 07/03/19 15:40 Urine Glucose (UA) Neg mg/dL (Negative) 07/03/19 15:40 Urine Ketones Neg mg/dL (Negative) 07/03/19 15:40 Urine Blood Sm (Negative) 07/03/19 15:40 Urine Nitrite Neg (Negative) 07/03/19 15:40 Urine Bilirubin Neg (Negative) 07/03/19 15:40 Urine Urobilinogen < 2.0 mg/dL (<2.0) 07/03/19 15:40 Ur Leukocyte Esterase Neg (Negative) 07/03/19 15:40 Urine WBC (Auto) 3.0 /HPF (0.0-6.0) 07/03/19 15:40 Urine RBC (Auto) 3.0 /HPF (0.0-6.0) 07/03/19 15:40 U Epithel Cells (Auto) 3.0 /HPF (0-13.0) 07/03/19 15:40 Urine Mucus Few /HPF 07/03/19 15:40 Active Medications - Current Medications Current Medications: Generic Name Dose Route Start Last Admin Trade Name Freq PRN Reason Stop Dose Admin Acetaminophen 650 mg 07/03/19 22:39 Tylenol PO Q4H PRN Pain MILD(1-3)/Fever >100.5/[place] Apixaban 5 mg 07/04/19 10:00 07/08/19 10:35 Eliquis PO 5 mg BID ÁNGEL Administration Protocol Famotidine 40 mg 07/04/19 10:00 07/08/19 10:35 Pepcid PO 40 mg QAM ÁNGEL Administration Finasteride 5 mg 07/04/19 22:00 07/07/19 22:33 Proscar PO 5 mg QHS ÁNGEL Administration Hydromorphone HCl 0.5 mg 07/03/19 22:39 Dilaudid IV Q3H PRN Pain , Severe (7-10) Ceftriaxone Sodium 2 gm in 100 mls @ 200 mls/hr 07/03/19 13:00 07/08/19 10:03 Rocephin/Ns 2 Gm/100 Ml IV 200 mls/hr Q24HR ÁNGEL Administration Protocol Sodium Chloride 1,000 mls @ 75 mls/hr 07/03/19 22:45 07/08/19 02:18 Nacl 0.9% 1000 Ml IV 75 mls/hr DIRECT ÁNGEL Administration Levothyroxine Sodium 150 mcg 07/05/19 06:00 07/08/19 06:17 Synthroid PO Not Given DAILY@0600 [facility] Levothyroxine Sodium 25 mcg 07/05/19 06:00 07/08/19 06:17 Synthroid PO Not Given DAILY@0600 [facility] Metoclopramide HCl 5 mg 07/03/19 22:39 07/08/19 06:24 Reglan IV 5 mg Q6H PRN Administration Nausea And Vomiting Midodrine 5 mg 07/08/19 08:00 07/08/19 12:27 Proamatine PO 5 mg TID@0800,1200,1600 [facility] Administration Ondansetron HCl 4 mg 07/03/19 22:39 07/08/19 10:01 Zofran IV 4 mg Q8H PRN Administration Nausea And Vomiting Oxycodone/Acetaminophen 1 tab 07/03/19 22:39 07/05/19 21:37 Percocet 5/325 PO 1 tab Q6H PRN Administration Pain, Moderate (4-6) Sodium Chloride 10 ml 07/04/19 10:00 07/08/19 10:02 Sodium Chloride Flush Syringe 10 Ml IV 10 ml BID ÁNGEL Administration Sodium Chloride 10 ml 07/03/19 22:39 Sodium Chloride Flush Syringe 10 Ml IV PRN PRN LINE FLUSH
[2019-07-08] MEDS: FINASTERIDE 5 MG TAB PO SCH (22:14)
[2019-07-09] MEDS: SODIUM CHLORIDE 0.9% 1000 ML 1,000 ML IV SCH ×2 (01:33→16:10)
[2019-07-09] MEDS: LEVOTHYROXINE 25 MCG TAB PO SCH (05:15)
[2019-07-09] MEDS: LEVOTHYROXINE 150 MCG TAB PO SCH (05:15)
[2019-07-09] MEDS: ONDANSETRON 4 MG/2 ML INJ IV PRN (10:42)
[2019-07-09] MEDS: cefTRIAXone/NS 2 GM/100 ML 2 GM/100 ML BAG IV SCH (10:43)
[2019-07-09] MEDS: MIDODRINE 5 MG TAB PO SCH ×2 (10:47→16:10)
[2019-07-09] MEDS: APIXABAN 5 MG TAB PO SCH ×3 (10:47→21:59)
[2019-07-09] MEDS: FAMOTIDINE 20 MG TAB PO SCH (10:47)
--- NOTE | 2019-07-09 12:25 | Discharge Summary ---
Providers - Providers Date of Admission: 07/04/19 14:00 Date of discharge: 07/09/19 Attending physician: ALEXANDRA TILLEY 07/04/19 03:54 Consult to Wound/ET Nurse [CONS] Routine Reason For Exam: wound eval 07/04/19 07:35 Physical Therapy Evaluation and Treat [CONS] Routine Comment: Reason For Exam: weakness 07/04/19 10:07 Consult to Physician [CONS] Routine Comment: Consulting Provider: TY ZAVALA Physician Instructions: Reason For Exam: CKD Primary care physician: PROFESSOR OF ENVIRONMENTAL STUDIES Hospitalization Condition: Good Hospital course: Patient presented with nausea vomiting appeared to be secondary to antibiotic use from previous UTI. Now was orthostatic has resolved giving IV fluids. Patient still has some nausea should be to treat with Zofran. No further dizziness. Disposition: - TO HOME OR SELFCARE - Discharge Diagnoses (1) ANMOL (acute kidney injury) Status: Acute Comment: Resolved secondary to nausea vomiting. Stable with IV volume replacement. (2) Leukocytosis Status: Acute Comment: Resolved leukocytosis. (3) Nausea and vomiting Status: Acute Comment: Will discharge with Zofran. Patient has been on antibiotics for greater than 7 days no further evidence of fever infection should be stable will discontinue antibiotics. (4) Near syncope Status: Acute Comment: Secondary to orthostatic hypotension has resolved. (5) Hyperglycemia Status: Acute (6) BPH (benign prostatic hyperplasia) Status: Chronic Qualifiers: Lower urinary tract symptom presence: symptoms present Comment: Continue Flomax (7) HTN (hypertension) Status: Chronic Qualifiers: Hypertension type: essential hypertension Qualified Code(s): I10 - Essential (primary) hypertension Comment: Controlled continue present antibiotic coverage. Antihypertensives. (8) Hypothyroidism (acquired) Status: Chronic Core Measure Documentation - Palliative Care Palliative Care/ Comfort Measures: Not Applicable - Core Measures Any of the following diagnoses?: none Exam - Constitutional Vitals: Temp Pulse Resp BP Pulse Ox 97.4 F L 92 H 18 148/90 95 07/09/19 07:39 07/09/19 07:39 07/09/19 07:39 07/09/19 07:39 07/09/19 07:39 General appearance: Present: no acute distress, well-nourished - EENT Eyes: Present: PERRL ENT: hearing intact, clear oral mucosa - Neck Neck: Present: supple, normal ROM - Respiratory Respiratory effort: normal Respiratory: bilateral: CTA - Cardiovascular Heart Sounds: Present: S1 & S2. Absent: rub, click - Extremities Extremities: pulses symmetrical, No edema Peripheral Pulses: within normal limits - Abdominal General gastrointestinal: Present: soft, non-tender, non-distended, normal bowel sounds Male genitourinary: Present: normal - Integumentary Integumentary: Present: clear, warm, dry - Musculoskeletal Musculoskeletal: gait normal, strength equal bilaterally - Psychiatric Psychiatric: appropriate mood/affect, intact judgment & insight - Neurologic Neurologic: CNII-XII intact, moves all extremities Plan Activity: no restrictions Weight Bearing Status: Weight Bear as Tolerated Diet: clear liquids Special Instructions: physical therapy, home health RN Plan of Treatment: 1.Follow up with PCP in 1 week. 2.Follow up with Dr. Zavala, Nephrology in 1 week 3.Norvasc, lasix,Hytrin,metoprolol put on hold to be resumed by Physician when BP allows. Follow up with: PRIMARY CARE, [Primary Care Provider] - 7 Days Prescriptions: Midodrine [Proamatine] 5 mg PO TID@0800,1200,1600 #30 tablet
[2019-07-09] MEDS: METOCLOPRAMIDE 10 MG/2 ML INJ IV PRN (19:24)
[2019-07-09] MEDS: FINASTERIDE 5 MG TAB PO SCH (21:59)
[2019-07-10] MEDS: ONDANSETRON 4 MG/2 ML INJ IV PRN (06:46)
[2019-07-10] MEDS: SODIUM CHLORIDE 0.9% 1000 ML 1,000 ML IV SCH (06:49)
[2019-07-10] MEDS: LEVOTHYROXINE 25 MCG TAB PO SCH (07:21)
[2019-07-10] MEDS: LEVOTHYROXINE 150 MCG TAB PO SCH (07:21)
[2019-07-10] MEDS: APIXABAN 5 MG TAB PO SCH (09:13)
[2019-07-10] MEDS: FAMOTIDINE 20 MG TAB PO SCH (09:13)
[2019-07-10] MEDS: MIDODRINE 5 MG TAB PO SCH ×2 (09:14→12:56)
--- NOTE | 2019-07-10 09:33 | Event Note ---
Date: 07/10/19 Discharge till yesterday secondary to vomiting has resolved this a.m. We will proceed with discharge summary. Long discussion with about follow-up home health PT.
--- NOTE | 2019-07-10 09:37 | Discharge Summary ---
Providers - Providers Date of Admission: 07/04/19 14:00 Date of discharge: 07/10/19 Attending physician: ALEXANDRA TILLEY 07/04/19 03:54 Consult to Wound/ET Nurse [CONS] Routine Reason For Exam: wound eval 07/04/19 07:35 Physical Therapy Evaluation and Treat [CONS] Routine Comment: Reason For Exam: weakness 07/04/19 10:07 Consult to Physician [CONS] Routine Comment: Consulting Provider: TY ZAVALA Physician Instructions: Reason For Exam: CKD Primary care physician: IMPORT COORDINATOR Hospitalization Condition: Good Disposition: DC-01 TO HOME OR SELFCARE - Discharge Diagnoses (1) ANMOL (acute kidney injury) Status: Acute Comment: Resolved secondary to nausea vomiting. Stable with IV volume replacement. (2) Leukocytosis Status: Acute Comment: Resolved leukocytosis. (3) Nausea and vomiting Status: Acute Comment: Will discharge with Zofran. Patient has been on antibiotics for greater than 7 days no further evidence of fever infection should be stable will discontinue antibiotics. (4) Near syncope Status: Acute Comment: Secondary to orthostatic hypotension has resolved. (5) Hyperglycemia Status: Acute (6) BPH (benign prostatic hyperplasia) Status: Chronic Qualifiers: Lower urinary tract symptom presence: symptoms present Comment: Continue Flomax (7) HTN (hypertension) Status: Chronic Qualifiers: Hypertension type: essential hypertension Qualified Code(s): I10 - Essential (primary) hypertension Comment: Controlled continue present antibiotic coverage. Antihypertensives. (8) Hypothyroidism (acquired) Status: Chronic Core Measure Documentation - Palliative Care Palliative Care/ Comfort Measures: Not Applicable - Core Measures Any of the following diagnoses?: none Exam - Constitutional Vitals: Temp Pulse Resp BP Pulse Ox 98.5 F 111 H 18 146/90 93 07/10/19 07:49 07/10/19 07:49 07/10/19 07:49 07/10/19 07:49 07/10/19 07:49 General appearance: Present: no acute distress, well-nourished - EENT Eyes: Present: PERRL ENT: hearing intact, clear oral mucosa - Neck Neck: Present: supple, normal ROM - Respiratory Respiratory effort: normal Respiratory: bilateral: CTA - Cardiovascular Heart Sounds: Present: S1 & S2. Absent: rub, click - Extremities Extremities: pulses symmetrical, No edema Peripheral Pulses: within normal limits - Abdominal General gastrointestinal: Present: soft, non-tender, non-distended, normal bowel sounds Male genitourinary: Present: normal - Integumentary Integumentary: Present: clear, warm, dry - Musculoskeletal Musculoskeletal: gait normal, strength equal bilaterally - Psychiatric Psychiatric: appropriate mood/affect, intact judgment & insight - Neurologic Neurologic: CNII-XII intact, moves all extremities Plan Activity: advance as tolerated Diet: regular Special Instructions: physical therapy, home health RN Plan of Treatment: 1.Follow up with PCP in 1 week. 2.Follow up with Dr. Zavala, Nephrology in 1 week 3.Norvasc, lasix,Hytrin,metoprolol put on hold to be resumed by Physician when BP allows. Follow up with: PRIMARY CARE, [Primary Care Provider] - 7 Days Prescriptions: Midodrine [Proamatine] 5 mg PO TID@0800,1200,1600 #30 tablet
[2019-07-10 14:12] VITALS: BP 148/85
== END 2019-07-10 15:40 | disposition home or self-care (01) | DRG 683 ==
LOC: ED 11:25 → 2B-ACE 13:32 → OBSVTOIN 07-04 14:00
PROVIDERS: ADMIT Internal Medicine; ATTEND Internal Medicine
PROC: 0HQ1XZZ Repair Face Skin, External Approach (ICD-10-PCS; principal; 2019-07-03)
DX: N17.0 Acute kidney failure with tubular necrosis (principal); I24.9 Acute ischemic heart disease, unspecified; N13.8 Other obstructive and reflux uropathy; E87.2 Acidosis; S01.81XA Laceration without foreign body of other part of head, initial encounter; I95.1 Orthostatic hypotension; K21.9 Gastro-esophageal reflux disease without esophagitis; M19.90 Unspecified osteoarthritis, unspecified site; D72.829 Elevated white blood cell count, unspecified; W18.39XA Other fall on same level, initial encounter; N40.1 Benign prostatic hyperplasia with lower urinary tract symptoms; E03.9 Hypothyroidism, unspecified; E55.9 Vitamin D deficiency, unspecified; D64.9 Anemia, unspecified; E11.22 Type 2 diabetes mellitus with diabetic chronic kidney disease; I12.9 Hypertensive chronic kidney disease with stage 1 through stage 4 chronic kidney disease, or unspecified chronic kidney disease; C67.9 Malignant neoplasm of bladder, unspecified; N18.9 Chronic kidney disease, unspecified; E11.65 Type 2 diabetes mellitus with hyperglycemia; Z86.718 Personal history of other venous thrombosis and embolism; Z91.018 Allergy to other foods; Z87.442 Personal history of urinary calculi; Z87.891 Personal history of nicotine dependence; Y93.89 Activity, other specified; Y92.89 Other specified places as the place of occurrence of the external cause; Y99.8 Other external cause status; Z92.21 Personal history of antineoplastic chemotherapy; Z87.440 Personal history of urinary (tract) infections
CPT/HCPCS: 36415; 70450; 71045; 72125; 76770; 80048; 80053; 80061; 81001; 82140; 82805; 83036; 83735; 84132; 84439; 84443; 84484; 85025; 85610; 85730; 87040; 87086; 93005; 93010; 93306; 93880; G0378; A6250; J0696; J1170; J2405; J2765; J7030; J7040